=== PATIENT | female | born 1965 ===

== ENCOUNTER → 2020-08-15 14:38 | Outpatient (BNVA) | payer MEDICAID, SELFPAY | PROVIDERS: PCP Internal Medicine; Visit Provider Student in an Organized Health Care Education/Training Program | DX: Z76.89 Persons encountering health services in other specified circumstances (principal) ==

== ENCOUNTER → 2021-09-07 11:00 | Outpatient (BNVA) | payer MEDICAID, SELFPAY | PROVIDERS: PCP Internal Medicine; Visit Provider Nurse Practitioner Family | DX: M79.7 Fibromyalgia (principal) | CPT/HCPCS: 99212 ==

== ENCOUNTER → 2021-12-23 10:05 | Outpatient (BNVA) | payer MEDICAID, SELFPAY | PROVIDERS: PCP Nurse Practitioner; Referring Provider Nurse Practitioner; Visit Provider Internal Medicine | DX: R07.2 Precordial pain (principal); R94.31 Abnormal electrocardiogram [ECG] [EKG]; E11.8 Type 2 diabetes mellitus with unspecified complications; E78.5 Hyperlipidemia, unspecified; E66.01 Morbid (severe) obesity due to excess calories; Z68.38 Body mass index [BMI] 38.0-38.9, adult | CPT/HCPCS: 99202 ==

== ENCOUNTER → 2022-01-05 08:44 | Outpatient (REF) | payer MEDICAID, SELFPAY ==
--- NOTE | ~2022-01-05 | NM_ITS ---
Myocardial perfusion study Indication: Precordial chest pain to evaluate for myocardial ischemia Technique: The patient was brought in for a Lexiscan perfusion study on 01/05/2022. Patient performed low-level exercise and was injected 0.4 mg of Lexiscan intravenously. Within a minute of injection, 30 mCi of sestamibi was given intravenously. Images were obtained using the SPECT gamma camera interlaced with the gating device. Images were obtained in supine position. Resting perfusion study was performed on 01/06/2022. Patient was administered 30 mCi of sestamibi intravenously at rest. Images were then obtained in supine position. Images obtained with and without CT attenuation. Total DLP 111 mGy-cm. Images were processed with the software and compared side to side in short axis, horizontal long axis and vertical long axis views. Findings: The stress perfusion study showed non attenuated images show normal uptake of radiotracer in all segments of LV myocardium. Attenuation corrected images show mildly reduced uptake in the apex of the LV myocardium. The gated study shows normal LV systolic function with calculated LVEF of 59%. LV cavity is normal in size. The gated study shows normal systolic wall thickening and contraction of segments. Resting study shows no change in perfusion pattern compared to stress perfusion study. Gating at rest reveals normal systolic wall motion with ejection fraction at 61%. The findings are consistent with normal myocardial perfusion. NM/NM cardiolite stress test Impression: 1. Myocardial perfusion imaging study shows normal myocardial perfusion 2. Gated LVEF is 59% 3. Transient ischemic dilatation not present EKG is nondiagnostic for ischemia
--- NOTE | 2022-01-05 08:46 | CA_ITS ---
Acquisition Time: 2022-01-05 08:59:15 Total Exercise Time: 00:02:00 Test Indications: ABN EKG Medications: SEE CHART Protocol: LEXISCAN Max HR: 133 BPM 82% of Pred: 162 BPM Max BP: 126/074 mmHG Max Work Load: 1.0 METS Pharmacological stress test with Lexiscan injection, while sitting and kicking her legs, without anginal symptoms, without arrythmia, with normotensive response to injection, with nondiagnostic EKG for ischemia, with EKG showing ST/ T wave abnormality inferiorly and V3-V6 at baseline without significant changes during test. In recovery she was given Amiophylline 75mg IVP to reverse Lexiscan. Nuclear images pending. Test reviewed with Dr Banegas Referred By: Josh Banegas Overread By: NEY RAIN
== END ==
LOC: HO.CARD 08:44
PROVIDERS: Visit Provider Internal Medicine
DX: R07.2 Precordial pain (principal)
CPT/HCPCS: 78452; 93017; A9500; J0280; J2785

== ENCOUNTER 2022-01-21 13:26 | Outpatient (REF) | payer MEDICAID, SELFPAY ==
--- NOTE | ~2022-01-21 | MM_ITS ---
EXAMINATION: MM SCREENING DIGITAL BREAST TOMOSYNTHESIS, BILATERAL CLINICAL INFORMATION: Screening. Asymptomatic. The lifetime risk of breast cancer based on the Tyrer-Cuzick Model is 5.6%. COMPARISON: Mammography: June 21, 2019 and studies dating back to October 13, 2009 TECHNIQUE: Digital breast tomosynthesis is performed in both the craniocaudal and mediolateral oblique views along with computer-aided detection (CAD). Synthesized 2D images are generated from the tomosynthesis. FINDINGS: There are scattered areas of fibroglandular density (ACR BI-RADS breast composition Category b). There are no significant masses, abnormal calcifications, or other abnormalities. MM/MM tomosynthesis screening BI IMPRESSION: There are no significant changes from prior study. ASSESSMENT: BI-RADS 1: Negative RECOMMENDATION: Routine annual mammography screening. This patient's information was entered into a reminder system with a target due date for their next mammogram.
== END 2022-01-21 13:27 | disposition home or self-care (01) ==
LOC: HO.MAMMO 13:26
PROVIDERS: Visit Provider Internal Medicine Geriatric Medicine
DX: Z12.31 Encounter for screening mammogram for malignant neoplasm of breast (principal)
CPT/HCPCS: 77063; 77067

== ENCOUNTER → 2022-02-09 14:34 | Outpatient (REF) | payer MEDICAID, SELFPAY ==
--- NOTE | 2022-02-09 14:38 | CA_ITS ---
Transthoracic Echocardiogram Patient (Last, First, Middle): Jannet Quintero, Gender: Female Date of : 1965 Age: 57 Procedure Date: 02/09/2022 Procedure Type: Transthoracic Echocardiogram Location: OP Height: 160.02 cm Weight: 99.79 kg BSA: 2.01 m2 Heart Rate: 74 bpm BP: 118 / 84 mmHg Cistern Room Working Supervisor: ANTONIO Referring MD: Josh Banegas MD Diesel Mechanic Helper: Braydon Scott MD Symptoms: R07.2 - Precordial pain Study Quality: Adequate ECG Rhythm: Sinus Conclusions: - 1. Low normal LV ejection fraction 50-55% with impaired relaxation filling pattern with possible basal inferior inferoseptal wall motion abnormality 2. Normal cardiac valvular Doppler 3. No gross pericardial effusion Findings Left Ventricle Normal left ventricular cavity size. There is normal left ventricular wall thickness. The left ventricular systolic function is low normal. The visually estimated ejection fraction is between 50-55%. Spectral Doppler is indicative of an impaired relaxation filling pattern. E/E prime ratio is between 8 and 15 consistent with indeterminate filling pressures. Wall Motion Rest Echo Findings The basal inferior and basal inferoseptal segments are hypokinetic. All other scored wall segments showed normal motion. Right Ventricle Normal right ventricular cavity size and systolic function. Atria The left atrium is normal in size. Interatrial shunt cannot be excluded. The right atrium is normal in size. Aortic Valve Normal aortic valve structure and function. There is no aortic valve stenosis. There is no aortic valve regurgitation. Mitral Valve Likely normal mitral valve structure and function. There is trace mitral valve regurgitation. There is no mitral valve stenosis. Tricuspid Valve Likely normal tricuspid valve structure and function. Tricuspid regurgitation envelope is inadequate for calculation of right ventricular systolic pressure. Normal right atrial pressure. Great Vessels All visible segments of the aorta are normal in size. The pulmonary artery was not well visualized. Venous The inferior vena cava is normal in size and collapses greater than 50% with inspiration. Pericardium/Pleural There is no evidence of pericardial effusion. Prior Study Comparison no significant change compared to prior study from 2007 Measurements 2D Linear Measurements IVSd: 1.06 0.6-0.9/0.6-1.0 cm LVIDd: 4.69 3.9-5.3/4.2-5.9 cm LVIDd Index: 2.33 2.4-3.2/2.2-3.1 cm/m2 LVIDs: 3.35 2.0-3.6 cm LVPWd: 0.79 0.7-1.1 cm Ao Root: 2.80 2.1-3.5 cm LA Diam: 3.60 2.7-3.8/3.0-4.0 cm LAIDs Index: 1.79 1.5-2.3 cm/m2 LV Mass: 182.96 67-162/88-224 g LV Mass Index: 91.03 43-95/49-115 g/m2 LVOT Diam: 2.00 3.0+(-)1.3 cm 2D Systolic Function EF 4C: 49.90 >55% EF 2C: 48.80 >55% EF BiP: 50.40 >55% Mitral Valve MV Pk E: 0.65 MV PK A: 0.78 MV Decel Time: 181.00 E/A: 0.80 E'Lateral: 11.90 E'Medial: 8.05 E/E' Med: 8.00 E/E' Lat: 5.40 PHT: 53.00 MVA PHT: 4.15 Decel [place]: 3.58 Aortic Valve AoV Pk [place]: 0.94 AoV Mn [place]: 0.70 AoV VTI: 0.20 AoV Pk Grad: 3.00 Aov Mn Grad: 2.00 ROS Cont.VTI: 3.01 LVOT LVOT Pk [place]: 0.86 LVOT Mn [place]: 0.59 LVOT VTI: 0.19 LVOT Pk Grad: 3.00 LVOT Mn Grad: 2.00 LVOT Diam: 2.00 LVOT Area: 3.14 Diastolic Function MV Pk E: 0.65 MV Pk A: 0.78 E/A: 0.80 E'Medial: 8.05 E/E' Med: 8.00 E' Laterial: 11.90 E/E' Lat: 5.40 Right Ventricle TAPSE (mm): 13.00 TVS' Kw[place]: 8.00 Tricuspid Valve RA Press: 3.00 Great Vessels Aorta Ao Root-2D: 2.80 2.0-3.7 cm Sinus of Valsalva: 2.80 2.0-3.[address] [place]: 2.58 1.7-3.4 cm Ao Asc: 2.80 2.1-3.4 cm Pulmonary Veins Pulm Vein S/D 1.30 Pulmonary Valve PV Pk Kwesi: 0.91 Peak PV Grad: 3.00 Updated in Other Vendor System with Status of Final Braydon Scott MD electronically signed on 02/10/2022 1:48:08 PM with status of Final
== END ==
LOC: HO.CARD 14:34
PROVIDERS: Visit Provider Internal Medicine
DX: R07.2 Precordial pain (principal)
CPT/HCPCS: 93306

== ENCOUNTER → 2022-07-22 12:08 | Outpatient (BNVA) | payer MEDICAID, SELFPAY | PROVIDERS: PCP Nurse Practitioner; Referring Provider Nurse Practitioner; Visit Provider Internal Medicine | DX: R94.31 Abnormal electrocardiogram [ECG] [EKG] (principal); R07.2 Precordial pain | CPT/HCPCS: 93005; 99212 ==

== ENCOUNTER 2022-08-17 22:38 | Emergency (ER) | payer MEDICAID, SELFPAY ==
--- NOTE | ~2022-08-17 | XR_ITS ---
EXAMINATION: XR CHEST CLINICAL INFORMATION: Fever. Rule out pneumonia. COMPARISON: 09/03/2018 TECHNIQUE: 2 views of the chest were obtained. FINDINGS: The lungs are well expanded. There is no focal consolidation, edema, or effusion. Minimal left basilar atelectasis. No pneumothorax. The cardiomediastinal silhouette is within normal limits. No acute osseous abnormality. XR/XR chest 2V IMPRESSION: Minimal left basilar atelectasis. Otherwise clear lungs.
[2022-08-17 22:48] VITALS: BP 150/91; BP 180/120; PULSE 135; PULSE 144; RESP 16; TEMP 38.1; O2SAT 95; BMI 38.2
[2022-08-17 22:49] VITALS: BP 150/91; PULSE 138; RESP 18; TEMP 38.1; O2SAT 95
--- NOTE | 2022-08-17 22:53 | ECG_ITS ---
Test Reason : SEPSIS Blood Pressure : / mmHG Vent. Rate : 127 BPM Atrial Rate : 127 BPM P-R Int : 142 ms QRS Dur : 074 ms QT Int : 286 ms P-R-T Axes : 041 040 -39 degrees QTc Int : [address] & T wave abnormality, consider inferior ischemia ST & T wave abnormality, consider anterior ischemia Abnormal ECG When compared with ECG of 07-OCT-2018 12:58, No significant change was found Referred By: Generic ED Physician Electronically Signed By:ROGER SIMPSON MD
[2022-08-17 23:10] LABS: Hematocrit 40.5 % (37.0-47.0); Hemoglobin 13.1 g/dl (12.0-16.0); Mean Corpuscular HGB Conc 32.3 g/dl (31.0-35.0); Mean Corpuscular Hemoglobin 28.9 pg (27.0-33.0); Mean Corpuscular Volume 89.4 fL (80.0-98.0); Mean Platelet Volume 9.6 fL (9.4-12.3); Platelet Count 229 X10*3/uL (160-400); Red Blood Count 4.53 X10*6/uL (4.20-5.50); Red Cell Distribution Width 13.9 % (11.0-16.0); White Blood Count 7.6 X10*3/uL (4.8-10.8)
--- NOTE | 2022-08-17 23:19 | ED.GENADULT ---
HPI - General Adult General Chief complaint: General Medical Stated complaint: fever,chills Time Seen by Provider: 08/17/22 23:18 Source: patient Mode of arrival: EMS Limitations: no limitations History of Present Illness HPI narrative: 57-year-old female who presents emergency department for evaluation of viral-like illness. Patient states that she to get sick earlier this morning. She states she developed diffuse body aches which have been constant. She has had subjective fevers on off throughout the day. She states that she developed a cough which is productive of clear phlegm. She has had a decreased appetite but she has been able to drink fluid. She complained of chills, rhinorrhea, chest pain. She states chest pain is located in the center of her chest, the pain is a tightness which is worse coughing. She feels short of breath and has dyspnea on exertion. She had nausea with no vomiting. She states she had 3 episodes of loose diarrheal stool yesterday. She complains of frequency and dysuria. Patient states that she got influenza vaccination on Tuesday, 5 days prior. patient states she was vaccinated against COVID-19 with 3 Moderna shots. Related Data Home Medications Medication Instructions Recorded Confirmed calcium carbonate 600 mg calcium 600 mg PO DAILY 08/15/20 07/22/22 (1,500 mg) tablet cyclobenzaprine 10 mg tablet 10 mg PO BEDTIME 08/15/20 07/22/22 sumatriptan succinate 100 mg tablet See Rx Instructions PO .COMPLEX 08/15/20 07/22/22 metformin 500 mg tablet 500 mg PO BID 09/07/21 07/22/22 olanzapine 5 mg tablet 5 mg PO BEDTIME 09/07/21 07/22/22 alcohol swabs (Alcohol Prep Pads) 0 pad topical 12/23/21 07/22/22 baclofen 10 mg tablet 10 mg PO TID 12/23/21 07/22/22 blood sugar diagnostic (FreeStyle #10 ea 12/23/21 07/22/22 Lite Strips) blood-glucose meter (FreeStyle #1 ea 12/23/21 07/22/22 [place] Lite kit) buspirone 10 mg tablet 10 mg PO BID 12/23/21 07/22/22 cholecalciferol (vitamin D3) 50 50 mcg PO DAILY 12/23/21 07/22/22 mcg (2,000 unit) capsule clonazepam 1 mg tablet 1 mg PO TID PRN 12/23/21 07/22/22 ibuprofen 600 mg tablet 600 mg PO TID 12/23/21 07/22/22 lancets 33 gauge (TRUEplus Lancets) #100 ea 12/23/21 07/22/22 sertraline 100 mg tablet 200 mg PO QAM 12/23/21 07/22/22 topiramate 100 mg tablet 100 mg PO DAILY migraine 12/23/21 07/22/22 zolpidem 12.5 mg tablet,extended 12.5 mg PO BEDTIME 12/23/21 07/22/22 release,multiphase Previous Rx's Medication Instructions Recorded gabapentin 100 mg capsule 100 mg PO TID #90 caps 03/29/22 acetaminophen 500 mg tablet 1,000 mg PO Q6H PRN fever or pain 08/18/22 (Tylenol Extra Strength) #20 tabs ibuprofen 400 mg tablet 400 mg PO TID PRN fever or pain 08/18/22 #30 tabs ondansetron 4 mg disintegrating 4 mg PO Q6-8H PRN nausea and 08/18/22 tablet vomiting #14 tabs Allergies Allergy/AdvReac Type Severity Reaction Status Date / Time quetiapine [From SEROQUEL] Allergy Unknown ELEVATED Verified 07/22/22 12:43 HEART RATE, increased heart rate Review of Systems Review of Systems: Yes all other systems are reviewed and are negative [facility] Past Medical History [facility] Narrative: Social history: She denies tobacco, alcohol and drug use. Medical History Chronic pain Fibromyalgia Morbid obesity Other and unspecified hyperlipidemia Palpitation Type 2 diabetes mellitus with unspecified complications Surgical History Hx of cholecystectomy Hx of hysterectomy Family History Family History Other Family history not known due to adoption Social History Social History Household Members: Children Housing: Apartment Alcohol intake: never Patient Tobacco Use Status: Never used Tobacco Advance Directives: No Advance Directives Information Provided: No service: No Current occupational status: disabled Physical Exam ED Vital Signs: Vital Signs - 24 hr 08/17/22 22:48 08/17/22 22:49 08/17/22 23:55 Temperature 100.6 F H 100.6 F H 99.6 F Pulse Rate 135 H 138 H 120 H Respiratory Rate 16 18 18 Blood Pressure 150/91 H 150/91 H 143/95 H Pulse Oximetry 95 95 96 Oxygen Delivery Method Room Air Room Air Room Air 08/18/22 00:55 Temperature 98.6 F Pulse Rate 115 H Respiratory Rate 16 Blood Pressure 130/79 Pulse Oximetry 94 Oxygen Delivery Method Room Air BMI result Body Mass Index 38.2 Const Other: awake, alert, female patient, very pleasant cooperative, does not appear to be in distress, answers all questions appropriately [facility] Head: Yes normal to inspection, Yes normocephalic and Yes atraumatic Ears: external ears normal General nose exam: Normal external nose present Face and sinus: Yes normal facial exam Mouth: Normal oral and palatal mucosa present Throat: Yes posterior oropharynx normal Eyes General: appearance normal, both eyes and all related structures Pupils: Equal, round and reactive pupils present Neck Neck: Yes normal visual inspection, Yes no lymphadenopathy, Yes trachea midline and Yes supple Chest Chest palpation & inspection: normal inspection of the chest and normal palpation of entire chest wall Resp Effort & Inspection: normal respiratory effort and able to speak in complete sentences Auscultation: clear to auscultation bilaterally Cardio Rate: tachycardic Rhythm: regular rhythm Heart sounds: S1 normal heart sound present, S2 normal heart sound present and no murmurs GI Inspection: Yes normal to inspection Palpation (GI): Soft to palpation, nontender and no guarding Auscultation: normal bowel sounds General: Yes no CVA tenderness Back/Spine/Pelvis Back: no CVA tenderness Skin General skin exam: no rashes or lesions noted Neuro Cranial nerves: Yes CN's II-XII intact bilaterally and Yes Equal, round and reactive pupils present Cognition (Neuro): normal cognition Extrem General: Yes normal to inspection Psych Appearance: grossly normal Speech and movement: Normal speech and movement present Affect: normal affect Medications Administered Discontinued Medications Generic Name Dose Route Start Last Admin Trade Name Freq PRN Reason Stop Dose Admin Acetaminophen 975 mg 08/17/22 23:42 08/17/22 23:55 Acetaminophen 325 Mg Tablet PO 08/17/22 23:43 975 mg ONCE STA Administration Sodium Chloride 1,000 mls @ 999 mls/hr 08/17/22 23:42 08/17/22 23:56 Ns IV 08/18/22 00:42 999 mls/hr .Q1H1M STA Administration Ketorolac Tromethamine 15 mg 08/17/22 23:42 08/17/22 23:55 Ketorolac Tromethamine 15 Mg/Ml Vial IVPUSH 08/17/22 23:43 15 mg ONCE STA Administration Ondansetron HCl 4 mg 08/17/22 23:42 08/17/22 23:55 Ondansetron Hcl 4 Mg/2 Ml Vial IVPUSH 08/17/22 23:43 4 mg ONCE ONE Administration Medical Decision Making Medical Decision Making [facility] [place] Narrative: 57-year-old female who presents emergency department for evaluation of flu like illness which started earlier this morning, symptoms include subjective fever, chills, rhinorrhea, nonproductive cough, chest pain, shortness of breath, dyspnea on exertion, nausea and diarrhea. She has also had frequency and dysuria. Patient's vital signs did reveal tachycardia with a heart rate of 135, fever with a temperature of a 100.6 degrees F. O2 saturation was normal at 95% on room air. Physical examination was otherwise unremarkable. I did order laboratory evaluation includes CBC, CMP, lactic acid, blood cultures x2, urinalysis, COVID-19, influenza, RSV. Patient was ordered to get normal saline x1 L. she is also ordered to get 0056 : My independent interpretation patient's laboratory data is as follows: CBC was normal. CMP was normal except for elevated glucose of 118 and elevated chloride of 112. Lactic acid was normal at 1.2. COVID-19, influenza and RSV were negative. Chest x-ray was interpreted by me as no acute disease. 0214: patient's urinalysis was negative. Patient is feeling better. As a viral syndrome and I did discuss this with her. Patient was given prescription for Zofran for her nausea and vomiting. She was also given prescriptions for Tylenol and ibuprofen for her pain and fever. She was given printed and verbal instructions and discharged home. Differential Diagnosis Differential diagnosis includes was not limited to viral syndrome, COVID-19, RSV, influenza, pneumonia, urinary tract infection Lab Data [facility] [place] Lab Attestation statement: I reviewed the patient's lab results. 08/17/22 23:02 08/17/22 23:02 Labs: Lab Results 08/17/22 08/17/22 08/17/22 Range/Units 23:02 23:02 23:02 WBC 7.6 (4.8-10.8) X10*3/uL RBC 4.53 (4.20-5.50) X10*6/uL Hgb 13.1 (12.0-16.0) g/dl Hct 40.5 (37.0-47.0) % MCV 89.4 (80.0-98.0) fL MCH 28.9 (27.0-33.0) pg MCHC 32.3 (31.0-35.0) g/dl RDW 13.9 (11.0-16.0) % Plt Count 229 (160-400) X10*3/uL MPV 9.6 (9.4-12.3) fL Absolute Nucleated RBC 0.000 (0.0-0.012) X10*3/uL Nucleated RBC % (auto) 0.0 (0.0-0.2) /100WBC Sodium 144 (135-145) mmol/L Potassium 3.8 (3.3-5.1) mmol/L Chloride 112 H (96-108) mmol/L Carbon Dioxide 24 (22-29) mmol/L Anion Gap 12 (12-20) BUN 11 (9-16) mg/dL Creatinine 0.91 (0.5-1.4) mg/dL Estim Creat Clear Calc 74.2 Estimated GFR > 60 Random Glucose 118 H (60-115) mg/dL Lactic Acid 1.2 (0.5-2.0) mmol/L Calcium 9.7 (8.4-10.2) mg/dL Total Bilirubin 0.3 (0.0-1.0) mg/dL Direct Bilirubin 0.2 (0.0-0.5) mg/dL AST 13 (5-31) U/L ALT 14 (0-31) U/L Alkaline Phosphatase 64 (39-117) U/L Total Protein 7.5 (6.5-8.0) g/dL Albumin 4.2 (3.5-5.0) g/dL Lipase 26 (8-78) U/L Urine Color Urine Appearance Urine pH (5.0-9.0) Ur Specific Malone (1.005-1.025) Urine Protein (Neg-Trace) mg/dL Urine Glucose (UA) (Negative) mg/dL Urine Ketones (Negative) mg/dL Urine Blood (Negative) Urine Nitrite (Negative) Ur Leukocyte Esterase (Negative) Urine RBC (0-2) /HPF Urine WBC (0-5) /HPF Ur Squamous Epith Cells (0-2) /HPF Urine Bacteria (None Seen) Hyaline Casts (0-2) /LPF Influenza Type A (PCR) (Negative) Influenza Type B (PCR) (Negative) RSV RNA Qual (PCR) (Negative) SARS-CoV-2 RNA (RT-PCR) (Negative) 08/17/22 08/18/22 Range/Units 23:53 01:09 WBC (4.8-10.8) X10*3/uL RBC (4.20-5.50) X10*6/uL Hgb (12.0-16.0) g/dl Hct (37.0-47.0) % MCV (80.0-98.0) fL MCH (27.0-33.0) pg MCHC (31.0-35.0) g/dl RDW (11.0-16.0) % Plt Count (160-400) X10*3/uL MPV (9.4-12.3) fL Absolute Nucleated RBC (0.0-0.012) X10*3/uL Nucleated RBC % (auto) (0.0-0.2) /100WBC Sodium (135-145) mmol/L Potassium (3.3-5.1) mmol/L Chloride (96-108) mmol/L Carbon Dioxide (22-29) mmol/L Anion Gap (12-20) BUN (9-16) mg/dL Creatinine (0.5-1.4) mg/dL Estim Creat Clear Calc Estimated GFR Random Glucose (60-115) mg/dL Lactic Acid (0.5-2.0) mmol/L Calcium (8.4-10.2) mg/dL Total Bilirubin (0.0-1.0) mg/dL Direct Bilirubin (0.0-0.5) mg/dL AST (5-31) U/L ALT (0-31) U/L Alkaline Phosphatase (39-117) U/L Total Protein (6.5-8.0) g/dL Albumin (3.5-5.0) g/dL Lipase (8-78) U/L Urine Color Yellow Urine Appearance Clear Urine pH 8.0 (5.0-9.0) Ur Specific [place] <= 1.005 (1.005-1.025) Urine Protein Negative (Neg-Trace) mg/dL Urine Glucose (UA) Negative (Negative) mg/dL Urine Ketones Negative (Negative) mg/dL Urine Blood Negative (Negative) Urine Nitrite Negative (Negative) Ur Leukocyte Esterase Small (1+) H (Negative) Urine RBC 0-2 (0-2) /HPF Urine WBC 0-5 (0-5) /HPF Ur Squamous Epith Cells 0-2 (0-2) /HPF Urine Bacteria None Seen (None Seen) Hyaline Casts 0-2 (0-2) /LPF Influenza Type A (PCR) NEGATIVE (Negative) Influenza Type B (PCR) NEGATIVE (Negative) RSV RNA Qual (PCR) NEGATIVE (Negative) SARS-CoV-2 RNA (RT-PCR) NEGATIVE (Negative) Radiology Impression Discussion of test interpretation with radiology: I have reviewed the radiologist's reading. Radiologist Impression: XR chest 2V IMPRESSION: Minimal left basilar atelectasis. Otherwise clear lungs. ?Dictated By: Scotty Camejo MD Signed By:<Electronically signed by Scotty Camejo MD in OV>08/17/22 [id number] Discharge Plan Discharge Clinical Impression: Viral syndrome, Nausea, Acute dehydration, Fever Patient Disposition: Home, Self-Care Instructions: Viral Syndrome (ED) Additional Instructions: Your laboratory evaluation was unremarkable. Your chest x-ray was normal with no signs of pneumonia. Your COVID-19, influenza and RSV tests were negative. Your symptoms are consistent with a viral syndrome. Take ibuprofen 400 mg pills, 1 pills every 6 hours as needed for pain. Take Tylenol (acetaminophen) 500 mg pills, 2 pills every 4 to 6 hours as needed for pain. Take Zofran ODT 4 mg pills, 1 pill dissolved in your mouth every 8 hours as needed for nausea and vomiting. Follow-up with your doctor in 2 days. Please return to the emergency department if your symptoms get worse or if you develop any symptoms that are concerning to you. Prescriptions: New acetaminophen [Tylenol Extra Strength] 500 mg tablet 1,000 mg PO Q6H PRN (Reason: fever or pain) Qty: 20 0RF ibuprofen 400 mg tablet 400 mg PO TID PRN (Reason: fever or pain) Qty: 30 0RF ondansetron 4 mg tablet,disintegrating 4 mg PO Q6-8H PRN (Reason: nausea and vomiting) Qty: 14 0RF No Action gabapentin 100 mg capsule 100 mg PO TID Qty: 90 5RF cyclobenzaprine 10 mg tablet 10 mg PO BEDTIME calcium carbonate 600 mg calcium (1,500 mg) tablet 600 mg PO DAILY sumatriptan succinate 100 mg tablet See Rx Instructions PO .COMPLEX Rx Instructions: take 1 tab at onset of headache; if no relief, may repeat 1 tab after at least 2 hrs; max = 2 tabs/24 hrs PO metformin 500 mg tablet 500 mg PO BID olanzapine 5 mg tablet 5 mg PO BEDTIME ibuprofen 600 mg tablet 600 mg PO TID baclofen 10 mg tablet 10 mg PO TID buspirone 10 mg tablet 10 mg PO BID zolpidem 12.5 mg tablet,ext release multiphase 12.5 mg PO BEDTIME cholecalciferol (vitamin D3) 50 mcg (2,000 unit) capsule 50 mcg PO DAILY (DME) blood-glucose meter [FreeStyle [place] Lite] Kit See Rx Instructions .ROUTE TID Qty: 1 Rx Instructions: As directed (DME) FreeStyle Lite Strips Strip See Rx Instructions .ROUTE TID Qty: 10 Rx Instructions: As directed alcohol swabs [Alcohol Prep Pads] Pads, Medicated 0 pad topical (DME) lancets [TRUEplus Lancets] 33 gauge misc See Rx Instructions .ROUTE TID Qty: 100 Rx Instructions: As directed topiramate 100 mg tablet 100 mg PO DAILY clonazepam 1 mg tablet 1 mg PO TID PRN sertraline 100 mg tablet 200 mg PO QAM
[2022-08-17 23:23] LABS: Lactic Acid 1.2 mmol/L (0.5-2.0)
[2022-08-17 23:29] LABS: Alanine Aminotransferase 14 U/L (0-31); Albumin Level 4.2 g/dL (3.5-5.0); Alkaline Phosphatase 64 U/L (39-117); Anion Gap 12 (12-20); Aspartate Amino Transferase 13 U/L (5-31); Bilirubin Direct 0.2 mg/dL (0.0-0.5); Bilirubin Total 0.3 mg/dL (0.0-1.0); Blood Urea Nitrogen 11 mg/dL (9-16); Calcium 9.7 mg/dL (8.4-10.2); Carbon Dioxide 24 mmol/L (22-29); Chloride 112 mmol/L (96-108); Creatinine Clr Calc Pharmacy 74.2; Estimated Glomerular Filt Rate > 60; Glucose Random 118 mg/dL (60-115); Lipase 26 U/L (8-78); Potassium 3.8 mmol/L (3.3-5.1); Sodium 144 mmol/L (135-145); Total Protein 7.5 g/dL (6.5-8.0)
[2022-08-17 23:55] VITALS: BP 143/95; PULSE 120; RESP 18; TEMP 37.6; O2SAT 96
[2022-08-17] MEDS: Acetaminophen 325 MG TABLET 975 MG PO (23:55)
[2022-08-17] MEDS: ondansetron HCL 4 MG/2 ML VIAL IVPUSH (23:55)
[2022-08-17] MEDS: Ketorolac Tromethamine 15 MG/ML VIAL IVPUSH (23:55)
[2022-08-17] MEDS: 0.9 % Sodium Chloride 1,000 ML 999 ML IV (23:56)
[2022-08-18 00:35] LABS: Influenza A PCR NEGATIVE (Negative); Influenza B PCR NEGATIVE (Negative); Resp Syncy Virus RNA Qual PCR NEGATIVE (Negative); SARS COV2 PCR INHOUSE NEGATIVE (Negative)
[2022-08-18 00:55] VITALS: BP 130/79; PULSE 115; RESP 16; TEMP 37; O2SAT 94
[2022-08-18 01:21] LABS: Appearance Urine Clear; Color Urine Yellow; Glucose Urine UA Negative (Negative); Leukocyte Esterase Urine Small (1+) (Negative); Nitrite Urine Negative (Negative); Specific Gravity - Urine <= 1.005 (1.005-1.025); UMIC TRIGGER UACC YES; Urine Blood Negative (Negative); Urine Ketones Negative (Negative); Urine Protein Negative (Neg-Trace)
[2022-08-18 01:28] LABS: Bacteria Urine None Seen (None Seen); Hyaline Casts Urine 0-2 /LPF (0-2); RBC Urine 0-2 /HPF (0-2); Squamous Epithelial Cell Urine 0-2 /HPF (0-2); UACC Culture Trigger YES; WBC Urine 0-5 /HPF (0-5)
== END 2022-08-18 04:55 | disposition home or self-care (01) ==
PROVIDERS: Emergency Provider Emergency Medicine Emergency Medical Services
DX: B34.9 Viral infection, unspecified (principal); R50.9 Fever, unspecified; E86.0 Dehydration; Z20.822 Contact with and (suspected) exposure to COVID-19; Z20.828 Contact with and (suspected) exposure to other viral communicable diseases; Z79.899 Other long term (current) drug therapy
CPT/HCPCS: 0241U; 36415; 71046; 80053; 81001; 82248; 83605; 83690; 85027; 87040; 87086; 87147; 93005; 96374; 96375; 99284; J1885; J2405

== ENCOUNTER → 2022-12-24 11:28 | Outpatient (BNVA) | payer MEDICAID, SELFPAY | PROVIDERS: PCP Nurse Practitioner Primary Care; Visit Provider Nurse Practitioner Family | DX: M79.7 Fibromyalgia (principal); M25.512 Pain in left shoulder | CPT/HCPCS: 99212 ==

== ENCOUNTER 2023-08-09 15:29 | Outpatient (REF) | payer MEDICAID, SELFPAY ==
--- NOTE | ~2023-08-09 | CT_ITS ---
EXAMINATION: CT HEAD WITHOUT CONTRAST CLINICAL INFORMATION: Head trauma with persistent left-sided headache COMPARISON: None available. TECHNIQUE: Contiguous axial imaging was performed from the skull base to vertex without intravenous administration of contrast. This CT examination was performed using dose optimization techniques as appropriate, variously including the following: *Automated exposure control *Adjustment of mA and/or kV according to patient size (this includes techniques or standardized protocols for targeted exams where dose is matched to indication/reason for exam; i.e. extremities or head) *Use of iterative reconstruction technique DLP: 753 mGy-cm FINDINGS: There is no acute intra-axial, extra-axial bleed, masses or midline shift. There is no acute infarction in evolution. There is no edema. The lateral ventricles are symmetrical in size and configuration without enlargement. The hinton to white matter differentiation is maintained normal. Bone windows reveal no calvarial abnormality. There is no scalp soft tissue abnormality. Bilateral paranasal sinuses and mastoid air cells are well-aerated. CT/CT head/brain wo IV con IMPRESSION: No acute intracranial process.
== END 2023-08-09 15:30 | disposition home or self-care (01) ==
LOC: HO.CT 15:29
PROVIDERS: PCP Nurse Practitioner Primary Care; Visit Provider Internal Medicine
DX: S06.9X0A Unspecified intracranial injury without loss of consciousness, initial encounter (principal)
CPT/HCPCS: 70450

== ENCOUNTER 2023-08-15 12:20 | Emergency (ER) | payer MEDICAID, SELFPAY ==
--- NOTE | ~2023-08-15 | XR_ITS ---
Examination: Right foot, right ankle and calcaneum. CLINICAL INDICATION: Atraumatic heel pain. COMPARISON: None. TECHNIQUE: Right foot 3 views. Right ankle 2 views. Right calcaneum one view. FINDINGS: Right foot: The joint spaces are maintained normal. No acute fracture, dislocation or subluxation seen. The soft tissues are normal. Right ankle: The ankle mortise and subtalar joints are normal. There is a small avulsion fragment tip of medial malleolus likely from old injury. There is a small calcaneal heel and retrocalcaneal enthesophytes. The soft tissues are normal. No acute fracture or dislocation seen. Right heel: There is a small calcaneal heel enthesophyte. No bony erosive changes, acute fracture or dislocation seen. The soft tissues are grossly unremarkable.. XR/XR ankle RT min 3V IMPRESSION: Small calcaneal heel and retrocalcaneal enthesophytes. No visible fracture, dislocation or subluxation of the right ankle or right foot.
--- NOTE | ~2023-08-15 | XR_ITS ---
Examination: Right foot, right ankle and calcaneum. CLINICAL INDICATION: Atraumatic heel pain. COMPARISON: None. TECHNIQUE: Right foot 3 views. Right ankle 2 views. Right calcaneum one view. FINDINGS: Right foot: The joint spaces are maintained normal. No acute fracture, dislocation or subluxation seen. The soft tissues are normal. Right ankle: The ankle mortise and subtalar joints are normal. There is a small avulsion fragment tip of medial malleolus likely from old injury. There is a small calcaneal heel and retrocalcaneal enthesophytes. The soft tissues are normal. No acute fracture or dislocation seen. Right heel: There is a small calcaneal heel enthesophyte. No bony erosive changes, acute fracture or dislocation seen. The soft tissues are grossly unremarkable.. XR/XR foot RT 2V IMPRESSION: Small calcaneal heel and retrocalcaneal enthesophytes. No visible fracture, dislocation or subluxation of the right ankle or right foot.
--- NOTE | ~2023-08-15 | XR_ITS ---
Examination: Right foot, right ankle and calcaneum. CLINICAL INDICATION: Atraumatic heel pain. COMPARISON: None. TECHNIQUE: Right foot 3 views. Right ankle 2 views. Right calcaneum one view. FINDINGS: Right foot: The joint spaces are maintained normal. No acute fracture, dislocation or subluxation seen. The soft tissues are normal. Right ankle: The ankle mortise and subtalar joints are normal. There is a small avulsion fragment tip of medial malleolus likely from old injury. There is a small calcaneal heel and retrocalcaneal enthesophytes. The soft tissues are normal. No acute fracture or dislocation seen. Right heel: There is a small calcaneal heel enthesophyte. No bony erosive changes, acute fracture or dislocation seen. The soft tissues are grossly unremarkable.. XR/XR calcaneus RT min 2V IMPRESSION: Small calcaneal heel and retrocalcaneal enthesophytes. No visible fracture, dislocation or subluxation of the right ankle or right foot.
[2023-08-15 12:35] VITALS: BP 168/77; PULSE 80; RESP 18; TEMP 36; O2SAT 97; BMI 39.3
--- NOTE | 2023-08-15 12:36 | ED_ITS ---
HPI - General Adult General Chief complaint: Extremity Injury, Lower Stated complaint: r heel pain Time Seen by Provider: 08/15/23 13:06 Source: patient Mode of arrival: ambulatory Limitations: no limitations History of Present Illness HPI narrative: Patient is a 58 year old assigned female at with a history of DM presenting to the emergency department today with right heel pain. Patient states that starting a few days ago she began to have right heel pain. Patient states that it is worse when walks. Patient denies any dizziness, lightheadedness, abdominal pain, nausea, vomiting, fever, chills, blurry vision, double vision, loss of vision, chest pain, difficulty breathing, shortness of breath, back pain, night sweats, pain with urination, increased urinary frequency, increased urinary urgency, blood in her urine or stool, syncope or a near syncopal episode, recent trauma or falls, bowel incontinence, bladder incontinence, bowel retention, bladder retention, or any other complaints at this time. Onset (ago): day(s) Location: right and lower extremity Severity: mild Severity scale (1-10): 4 Quality: aching and dull Pain Consistency: intermittent Relieving factors: none Exacerbating factors: movement Associated symptoms: denies other symptoms Treatments prior to arrival: none Related Data Home Medications Medication Instructions Recorded Confirmed calcium carbonate 600 mg calcium 600 mg PO DAILY 08/15/20 12/24/22 (1,500 mg) tablet metformin 500 mg tablet 500 mg PO BID 09/07/21 12/24/22 olanzapine 5 mg tablet 5 mg PO BEDTIME 09/07/21 12/24/22 alcohol swabs (Alcohol Prep Pads) 0 pad topical 12/23/21 12/24/22 blood sugar diagnostic (FreeStyle #10 ea 12/23/21 12/24/22 Lite Strips) blood-glucose meter (FreeStyle #1 ea 12/23/21 12/24/22 [place] Lite kit) buspirone 10 mg tablet 10 mg PO BID 12/23/21 12/24/22 cholecalciferol (vitamin D3) 50 50 mcg PO DAILY 12/23/21 12/24/22 mcg (2,000 unit) capsule clonazepam 1 mg tablet 1 mg PO TID PRN 12/23/21 12/24/22 lancets 33 gauge (TRUEplus Lancets) #100 ea 12/23/21 12/24/22 topiramate 100 mg tablet 100 mg PO DAILY migraine 12/23/21 12/24/22 zolpidem 12.5 mg tablet,extended 12.5 mg PO BEDTIME 12/23/21 12/24/22 release,multiphase Previous Rx's Medication Instructions Recorded acetaminophen 500 mg tablet 1,000 mg (2 x 500 mg) PO Q6H PRN 08/18/22 (Tylenol Extra Strength) fever or pain #20 tabs ibuprofen 400 mg tablet 400 mg PO TID PRN fever or pain 08/18/22 #30 tabs naproxen 500 mg tablet 500 mg PO BID #60 tabs 12/24/22 gabapentin 100 mg capsule 100 mg PO TID #90 caps 02/08/23 Allergies Allergy/AdvReac Type Severity Reaction Status Date / Time quetiapine [From SEROQUEL] Allergy Unknown ELEVATED Verified 08/15/23 12:35 HEART RATE, increased heart rate Review of Systems Constitutional: Constitutional: Reports no additional constitutional complaints, Denies chills, Denies fever(s) and Denies night sweats Eyes: Eyes: Reports no additional eye complaints, Denies blurry vision, Denies change in vision, Denies diplopia, Denies eye discharge, Denies loss of vision and Denies eye pain ENT: Denies dizziness Cardiovascular: Cardiovascular: Reports no additional cardiovascular complaints, Denies chest pain, Denies lightheadedness, Denies Loss of Consciousness and Denies dyspnea Respiratory: Respiratory: Reports no additional respiratory complaints and Denies dyspnea Gastrointestinal: Gastrointestinal: Reports no additional gastrointestinal complaints, Denies abdominal pain, Denies melena, Denies hematochezia, Denies change in bowel habits and Denies change in stool character Genitourinary: Genitourinary: Denies hematuria, Denies urinary frequency, Denies dysuria, Denies urinary incontinence, Denies urinary hesitancy and Denies urinary urgency Musculoskeletal: Musculoskeletal: Reports no additional musculoskeletal complaints, Denies numbness and Denies tingling Comments: right heel pain Neurologic: Denies dizziness, Denies loss of vision, Denies numbness and Denies tingling Psychiatric: Psychiatric: Reports no additional psychiatric complaints Endocrine: Endocrine: Reports no additional endocrine complaints Hematologic/Lymphatic: Hematologic/Lymphatic: Reports no additional hematologic/lymphatic complaints Allergic/Immunologic: Allergic/Immunologic: Reports no additional allergic/immunologic complaints PMFSH Past Medical History Attestation statement: The following information was validated with the patient. Source: old records reviewed and nursing notes reviewed Onset Date is defined in the Problem List Problems that require an onset date and time if occurred within 24 hrs of arrival to the ED Aortic Dissection and Rupture; Neurologic impairment; Cardiopulmonary Arrest; Endotracheal Intubation; Insertion or Replacement of Mechanical Circulatory Assist Device Medical History Morbid obesity Other and unspecified hyperlipidemia Abnormal EKG Precordial chest pain Type 2 diabetes mellitus with unspecified complications Chronic pain Palpitation Fibromyalgia Surgical History Hx of hysterectomy Hx of cholecystectomy Family History Family History Other Family history not known due to adoption Social History Social History Household Members: Children Housing: Apartment Alcohol intake: never Patient Tobacco Use Status: Never used Tobacco Advance Directives: No Advance Directives Information Provided: No service: No Current occupational status: disabled Physical Exam ED Vital Signs: Vital Signs - 24 hr 08/15/23 12:35 Temperature 96.8 F Pulse Rate 80 Respiratory Rate 18 Blood Pressure 168/77 H Pulse Oximetry 97 Oxygen Delivery Method Room Air BMI result Body Mass Index 39.3 Const General: cooperative, no acute distress, alert and awake Nutritional Appearance: well nourished Orientation/consciousness: patient oriented x3 Limitations: no limitations [facility] Head: Yes normal to inspection and Yes atraumatic Ears: hearing grossly normal bilaterally and external ears normal General nose exam: Normal external nose present, no nasal discharge noted and no epistaxis Face and sinus: Yes normal facial exam, No abrasion and No laceration Mouth: Normal oral and palatal mucosa present, no drooling and no muffled voice Eyes General: appearance normal, both eyes and all related structures Periorbital: periorbital findings normal Eyelids: Yes eyelids normal Conjunctivae: conjunctivae normal Pupils: Equal, round and reactive pupils present EOM: EOMs intact bilaterally Neck Neck: Yes normal visual inspection, Yes full ROM and Yes no lymphadenopathy Chest Chest palpation & inspection: normal inspection of the chest Resp Effort & Inspection: normal respiratory effort and able to speak in complete sentences GI Inspection: Yes normal to inspection Neuro General: patient oriented x3 and moves all extremities Cranial nerves: Yes Equal, round and reactive pupils present Cognition (Neuro): normal cognition Motor exam (neuro): 5/5 motor strength present throughout Sensory Exam: Normal double simultaneous stimulation for sensation Coordination: [id number] test normal Extrem General: Yes normal to inspection, Yes full ROM and Yes capillary refill normal Psych Appearance: grossly normal Mental Status: mental status grossly normal Affect: normal affect Attitude: cooperative Thought process: Normal thought process present Thought content: Normal thought content present Insight: Good insight present (Psych) Course Course Course Narrative: RME:?58 yo female w/ hx of T2DM, HDL, and fibromyalgia here w/ atraumatic right heel pain x2 days. Pain is constant. worse with bearing palma. no injury/trauma. taking Tylenol and ibuprofen at home w/o relief. ambulating with steady gait. ttp of right lateral and medial calcaneous. no open wounds/ overlying skin changes. +2+dp/pt pulses. plan for xrays Full HPI, ROS and PE to be performed by the primary ED provider. Medications Administered Discontinued Medications Generic Name Dose Route Start Last Admin Trade Name Freq PRN Reason Stop Dose Admin Ketorolac Tromethamine 15 mg 08/15/23 13:52 08/15/23 13:57 Ketorolac Tromethamine 15 Mg/Ml Vial IM 08/15/23 13:53 15 mg ONCE ONE Administration Medical Decision Making Medical Decision Making [facility] Narrative: Patient is a 58 year old assigned female at with a history of DM presenting to the emergency department today with right heel pain. Patient's physical exam was unremarkable. Patient's right foot, calcaneus, and ankle x- rays showed no acute process. I explained my physical exam findings as well as all test results to the patient. I answered all questions asked by the patient. I stressed the importance of the patient taking her medication as prescribed. I stressed the importance of the patient following up with her primary care provider and an orthopedic provider. I stressed the importance of the patient returning to the emergency department immediately if her symptoms were to worsen or if she were to develop any dizziness, shortness of breath, difficulty breathing, chest pain, blurry vision, loss of vision, nausea, vomiting, abdominal pain, fever, chills, back pain, or any other complaints. Patient verbalized agreement and understanding with this treatment plan and discharge. Differential Diagnosis Differential Diagnoses: The differential diagnosis associated with the presentation includes Plantar fasciitis Admission/Observation Consideration of admission/observation: Escalation of care including admission/observation considered Patient would have been admitted to the hospital had her work up had any findings where hospital admission was appropriate and her clinical presentation warranted hospital admission. Independent Interpretation I performed an independent interpretation of an: Plain X-Ray Interpretation: My interpretation is in agreement with the radiologist's impression of these imaging studies. CLINICAL INDICATION: Atraumatic heel pain. COMPARISON: None. TECHNIQUE: Right foot 3 views. Right ankle 2 views. Right calcaneum one view. FINDINGS: Right foot: The joint spaces are maintained normal. No acute fracture, dislocation or subluxation seen. The soft tissues are normal. Right ankle: The ankle mortise and subtalar joints are normal. There is a small avulsion fragment tip of medial malleolus likely from old injury. There is a small calcaneal heel and retrocalcaneal enthesophytes. The soft tissues are normal. No acute fracture or dislocation seen. Right heel: There is a small calcaneal heel enthesophyte. No bony erosive changes, acute fracture or dislocation seen. The soft tissues are grossly unremarkable.. XR/XR foot RT 2V IMPRESSION: Small calcaneal heel and retrocalcaneal enthesophytes. No visible fracture, dislocation or subluxation of the right ankle or right foot Dictated By: Mina Youssef MD Signed By: Electronically signed by Mina Youssef MD 08/15/23 7731 Radiology Impression Discussion of test interpretation with radiology: I have reviewed the radiologist's reading. Discharge Plan Discharge Clinical Impression: Plantar fasciitis Patient Disposition: Home, Self-Care Instructions: Plantar Fasciitis (ED) Additional Instructions: Follow up with your primary care provider and an orthopedic provider. Return to the emergency department immediately if your symptoms worsen or if you develop any dizziness, shortness of breath, difficulty breathing, chest pain, blurry vision, loss of vision, nausea, vomiting, abdominal pain, fever, chills, back pain, or any other complaints. Dev un seguimiento con flores proveedor de atenci?n primaria y un proveedor ortop?dico. Regrese al departamento de emergencias inmediatamente si soo s?ntomas empeoran o si presenta mareos, dificultad para respirar, dificultad para respirar, dolor en el pecho, visi?n borrosa, p?rdida de la visi?n, n?useas, v?mitos, dolor abdominal, fiebre, escalofr?os, dolor de espalda o cualquier otras quejas. Prescriptions: No Action gabapentin 100 mg capsule 100 mg PO TID Qty: 90 5RF acetaminophen [Tylenol Extra Strength] 500 mg tablet 1,000 mg PO Q6H PRN (Reason: fever or pain) Qty: 20 0RF ibuprofen 400 mg tablet 400 mg PO TID PRN (Reason: fever or pain) Qty: 30 0RF calcium carbonate 600 mg calcium (1,500 mg) tablet 600 mg PO DAILY metformin 500 mg tablet 500 mg PO BID olanzapine 5 mg tablet 5 mg PO BEDTIME buspirone 10 mg tablet 10 mg PO BID zolpidem 12.5 mg tablet,ext release multiphase 12.5 mg PO BEDTIME cholecalciferol (vitamin D3) 50 mcg (2,000 unit) capsule 50 mcg PO DAILY (DME) blood-glucose meter [FreeStyle Shirley Lite] Kit See Rx Instructions .ROUTE TID Qty: 1 Rx Instructions: As directed (DME) FreeStyle Lite Strips Strip See Rx Instructions .ROUTE TID Qty: 10 Rx Instructions: As directed alcohol swabs [Alcohol Prep Pads] Pads, Medicated 0 pad topical (DME) lancets [TRUEplus Lancets] 33 gauge misc See Rx Instructions .ROUTE TID Qty: 100 Rx Instructions: As directed topiramate 100 mg tablet 100 mg PO DAILY clonazepam 1 mg tablet 1 mg PO TID PRN naproxen 500 mg tablet 500 mg PO BID Qty: 60 0RF Referrals: [facility] [Provider Group] (Call to establish and follow up with an orthopedic provider. Llame para establecer y realizar un seguimiento con un proveedor ortop?dico.) Katharine Vega CUSTOMER SERVICE ASSISTANT [Primary Care Provider] - Interventions: ED Discharge Assessment Last Done: 08/15/23 14:00 Discharge Date/Time: 08/15/23 14:00 Print Language: Czech
[2023-08-15] MEDS: Ketorolac Tromethamine 15 MG/ML VIAL IM (13:57)
== END 2023-08-15 14:00 | disposition home or self-care (01) ==
PROVIDERS: Emergency Provider Emergency Medicine; PCP Nurse Practitioner Primary Care
DX: M72.2 Plantar fascial fibromatosis (principal); M25.571 Pain in right ankle and joints of right foot
CPT/HCPCS: 73610; 73620; 73650; 96372; 99283; 99284; J1885

== ENCOUNTER 2023-08-25 13:45 | Outpatient (AMB) | payer MEDICAID, SELFPAY ==
[2023-08-25 13:54] VITALS: BP 112/70; PULSE 61; TEMP 36.1; O2SAT 96; BMI 39.5
--- NOTE | 2023-08-25 13:54 | MHC.OFFVIS ---
Intake Vital Signs 08/25/23 13:54 Height 5 ft 3 in Weight 222 lb 14.197 oz BMI 39.5 BP 112/70 Blood Pressure Location Rt brachial Position Sitting Pulse 61 Pulse Source Pulse Oximeter Temp 97.0 F Temp Source Skin Pulse Oximetry (%) 96 Oxygen Delivery Method Room Air Intake Visit Reasons: fibromyalgia Intake Note: Patient last seen by Andreea Newsome on 12/24/22 presents today for follow up. Shoulder x-ray ordered at last visit still pending. C/o bad pain in right heel for more than a week barely can walk on it. The pain keeps her up at night. [employer] Ste[employer] Required: No Accompanied by: Self / Same As Patient Allergies quetiapine [From SEROQUEL] Allergy (Unknown, Verified 08/25/23 13:57) ELEVATED HEART RATE, increased heart rate Medication List - Last Reconciled 08/25/23 by Stephanie Wells MD acetaminophen (Tylenol Extra Strength) 1,000 mg (2 x 500 mg) PO Q6H PRN alcohol swabs (Alcohol Prep Pads) 0 pad topical blood sugar diagnostic (FreeStyle Lite Strips) As directed blood-glucose meter (FreeStyle [place] Lite kit) As directed buspirone 15 mg PO BID calcium carbonate 600 mg PO DAILY cholecalciferol (vitamin D3) 50 mcg PO DAILY clonazepam 1 mg PO TID PRN gabapentin 100 mg PO TID ibuprofen 400 mg PO TID PRN lancets (TRUEplus Lancets) As directed metformin 500 mg PO BID naproxen 500 mg PO BID olanzapine 5 mg PO BEDTIME omeprazole 20 mg PO DAILY sertraline 200 mg PO QAM sumatriptan succinate 50 mg PO Q6H PRN topiramate 100 mg PO DAILY zolpidem ER 12.5 mg PO BEDTIME HPI HPI Comments History of Present Illness Details 58-year-old female with fibromyalgia returns for follow-up. She states that about a week ago she went to urgent care due to acute onset of right heel pain. An x-ray was done which showed no fracture. She states that she does not recall any injury or overuse. She denies any similar episodes in the past. She can not think of any aggravating or relieving factors. She does not take anything for pain currently. [facility] Medical History Morbid obesity Other and unspecified hyperlipidemia Abnormal EKG Precordial chest pain Type 2 diabetes mellitus with unspecified complications Chronic pain Palpitation Fibromyalgia Surgical History Hx of hysterectomy Hx of cholecystectomy Family History Other Family history not known due to adoption Social History Household Members: Children Housing: Apartment Alcohol intake: never Patient Tobacco Use Status: Never used Tobacco service: No Current occupational status: disabled Review of Systems Musc Reports arthralgias and Reports stiffness Physical Exam Vital Signs: Last Vital Signs Temp 97.0 F 08/25/23 13:54 Pulse 61 08/25/23 13:54 BP 112/70 08/25/23 13:54 Pulse Ox 96 08/25/23 13:54 Oxygen Delivery Method Room Air 08/25/23 13:54 BMI result Body Mass Index 39.5 Const General: cooperative, healthy appearing and anxious Nutritional Appearance: obese morbidly obese Orientation/consciousness: patient oriented x3 Limitations: no limitations HEENT Head: Yes normocephalic and Yes atraumatic Mouth: moist mucous membranes Resp Effort & Inspection: normal respiratory effort and able to speak in complete sentences Auscultation: clear to auscultation bilaterally Cardio Rate: regular rate Neuro General: patient oriented x3 Extrem Other: No active synovitis No swollen joints noted Tenderness squeezing her right foot posteriorly. No MTP tenderness Antalgic gait in exam room but patient seen walking normally outside of the exam room Assessment & Plan Assessment & Plan (1) Plantar fasciitis of right foot: Code(s): M72.2 - Plantar fascial fibromatosis Plan: Symptoms rather consistent with plantar fasciitis. Recent x-ray did not show a fracture. No significant enthesopathy. No swelling on exam. Will prescribe a 2 week course of naproxen. I provided patient a printout of home exercises for plantar fasciitis. Follow-up with PCP. Can consider podiatry evaluation if no improvement Plan I spent 20 minutes reviewing patient's chart, evaluating patient, counseling patient and documenting in the chart Medications: Refilled naproxen 500 mg PO BID 30 tabs 1RF M25.50 - Pain in unspecified joint Coding Level of Care Code Est Pt Level 3 (76027) Diagnoses Plantar fasciitis of right foot M72.2
== END 2023-08-25 15:02 | disposition home or self-care (01) ==
LOC: HO.RHE 13:45
PROVIDERS: PCP Nurse Practitioner Primary Care; Visit Provider Student in an Organized Health Care Education/Training Program
DX: M72.2 Plantar fascial fibromatosis (principal)
CPT/HCPCS: 99213

== ENCOUNTER → 2023-08-25 13:45 | Outpatient (BNVA) | payer MEDICAID, SELFPAY | PROVIDERS: PCP Nurse Practitioner Primary Care; Visit Provider Student in an Organized Health Care Education/Training Program | DX: M72.2 Plantar fascial fibromatosis (principal) | CPT/HCPCS: 99212 ==

== ENCOUNTER 2023-09-07 14:47 | Emergency (ER) | payer MEDICAID, SELFPAY ==
--- NOTE | ~2023-09-07 | XR_ITS ---
EXAMINATION: XR CHEST CLINICAL INFORMATION: Chest pain. Shortness of breath. COMPARISON: Chest x-ray January 15, 2023 TECHNIQUE: 2 views of the chest were obtained. FINDINGS: No significant abnormality is noted involving the heart, lungs, mediastinum, bony thorax or soft tissues. Surgical clips right upper quadrant of abdomen. XR/XR chest 2V IMPRESSION: Unremarkable examination.
--- NOTE | 2023-09-07 14:50 | ECG_ITS ---
Test Reason : cp Blood Pressure : / mmHG Vent. Rate : 100 BPM Atrial Rate : 100 BPM P-R Int : 126 ms QRS Dur : 078 ms QT Int : 362 ms P-R-T Axes : 038 035 -30 degrees QTc Int : 466 ms Normal sinus rhythm ST & T wave abnormality, consider inferior ischemia ST & T wave abnormality, consider anterolateral ischemia Abnormal ECG When compared with ECG of 17-AUG-2022 22:57, No significant change was found Referred By: Anabel Bruce Electronically Signed By:EB VALDEZ
[2023-09-07 15:22] VITALS: BP 156/82; PULSE 86; RESP 18; TEMP 36.2; O2SAT 97; BMI 39.3
--- NOTE | 2023-09-07 15:22 | ED.CHESTPAIN ---
HPI - Chest Pain General Chief Complaint: Chest Pain Stated Complaint: Chest pain Time Seen by Provider: 09/07/23 20:57 History of Present Illness HPI narrative: The patient is a very pleasant 58-year-old with type 2 diabetes on metformin who started to experience chest pain yesterday in the middle of the day. She describes having brief episodes of chest pain with some frequency. She says the episodes last only a few seconds and come every 10-15 minutes. She also feels mildly short of breath. She says she has been under a lot of stress recently and wonders whether her symptoms could be anxiety or stress related. She says that her mother several months ago. Also her niece a couple of months ago. Additionally her son was recently put in chcf. She lives with her with whom she gets along well. She also lives with a daughter with whom she has a good relationship. No fever, sweats, chills. No cough or sputum. No abdominal pain, nausea, vomiting. No pain or swelling in her legs. Related Data Home Medications Medication Instructions Recorded Confirmed calcium carbonate 600 mg calcium 600 mg PO DAILY 08/15/20 12/24/22 (1,500 mg) tablet metformin 500 mg tablet 500 mg PO BID 09/07/21 12/24/22 olanzapine 5 mg tablet 5 mg PO BEDTIME 09/07/21 12/24/22 alcohol swabs (Alcohol Prep Pads) 0 pad topical 12/23/21 12/24/22 blood sugar diagnostic (FreeStyle #10 ea 12/23/21 12/24/22 Lite Strips) blood-glucose meter (FreeStyle #1 ea 12/23/21 12/24/22 [place] Lite kit) cholecalciferol (vitamin D3) 50 50 mcg PO DAILY 12/23/21 12/24/22 mcg (2,000 unit) capsule clonazepam 1 mg tablet 1 mg PO TID PRN 12/23/21 12/24/22 lancets 33 gauge (TRUEplus Lancets) #100 ea 12/23/21 12/24/22 topiramate 100 mg tablet 100 mg PO DAILY migraine 12/23/21 12/24/22 zolpidem 12.5 mg tablet,extended 12.5 mg PO BEDTIME 12/23/21 12/24/22 release,multiphase buspirone 15 mg tablet 15 mg PO BID 08/25/23 omeprazole 20 mg capsule,delayed 20 mg PO DAILY 08/25/23 release sertraline 100 mg tablet 200 mg PO QAM 08/25/23 sumatriptan succinate 50 mg tablet 50 mg PO Q6H PRN migraine 08/25/23 Previous Rx's Medication Instructions Recorded acetaminophen 500 mg tablet 1,000 mg (2 x 500 mg) PO Q6H PRN 08/18/22 (Tylenol Extra Strength) fever or pain #20 tabs ibuprofen 400 mg tablet 400 mg PO TID PRN fever or pain 08/18/22 #30 tabs gabapentin 100 mg capsule 100 mg PO TID #90 caps 02/08/23 naproxen 500 mg tablet 500 mg PO BID #30 tabs 08/25/23 Allergies Allergy/AdvReac Type Severity Reaction Status Date / Time quetiapine [From SEROQUEL] Allergy Unknown ELEVATED Verified 08/25/23 13:57 HEART RATE, increased heart rate oxycodone [From OxyContin] Allergy Gastrointestinal Verified 09/07/23 15:22 Upset Review of Systems Review of Systems: Yes all other systems are reviewed and are negative [facility] Past Medical History Medical History Morbid obesity Other and unspecified hyperlipidemia Abnormal EKG Precordial chest pain Type 2 diabetes mellitus with unspecified complications Chronic pain Palpitation Fibromyalgia Surgical History Hx of hysterectomy Hx of cholecystectomy Family History Family History Other Family history not known due to adoption Social History Social History Household Members: Children Housing: Apartment Alcohol intake: never Patient Tobacco Use Status: Never used Tobacco Advance Directives: No Advance Directives Information Provided: No service: No Current occupational status: disabled Physical Exam Vital Signs: Vital Signs: Last Vital Signs Temp 98.4 F 09/07/23 21:13 Pulse 70 09/07/23 21:13 Resp 12 09/07/23 21:13 BP 153/90 H 09/07/23 21:13 Pulse Ox 98 09/07/23 21:13 O2 Del Method Room Air 09/07/23 21:13 BMI result Body Mass Index 39.3 Const: Other: The patient is a mildly overweight 58-year-old who was awake and alert and does not look in distress. HEENT: Other: The face is symmetrical. ?Mucous membranes moist. Eyes: Other: Pupils are round equal, conjunctivae are clear, extraocular movements intact Neck: Neck: Yes no JVD Resp: Effort & Inspection: normal respiratory effort Auscultation: clear to auscultation bilaterally Cardio: Rate: regular rate Rhythm: regular rhythm Heart sounds: S1 normal heart sound present and S2 normal heart sound present GI: Other: Abdomen is soft and nontender Skin: Other: Skin is dry and unremarkable Neuro: Other: The patient is awake, alert, pleasant, cooperative. Mental status is normal. Cranial nerves are intact. She moves her extremities normally and appropriately. Grossly neurologically intact. Extrem: Other: No pitting edema in the lower legs. No calf swelling or tenderness. No calf asymmetry. Course Course Course Narrative: RME:?58 yo female. hx depression and anxiety, T1DM, here with intermittent chest pain and SOB x1 day that came on suddenly while watching tv. episodes last a few seconds. pain located to left chest and epigastric region. Denies cough. lungs cta b/l. RRR. no calf tenderness Full HPI, ROS and PE to be performed by the primary ED provider. Medical Decision Making Medical Decision Making MDM Narrative: The patient is a 58-year-old with a history of type 2 diabetes who presents with very nonspecific chest pain symptoms. She has an abnormal EKG but she seems to have a baseline abnormal EKG. Clinically the patient looks well and my overall suspicion for an acute coronary syndrome or other acutely dangerous process is low. Her troponins are negative. ProBNP is normal. Chest x-ray is normal. Other labs are unremarkable. I think she may be discharged to follow up with her regular doctor. Lab Data 09/07/23 17:19 09/07/23 17:19 Labs: Lab Results 09/07/23 09/07/23 Range/Units 17:19 21:14 WBC 8.7 (4.8-10.8) X10*3/uL RBC 4.57 (4.20-5.50) X10*6/uL Hgb 13.6 (12.0-16.0) g/dl Hct 42.2 (37.0-47.0) % MCV 92.3 (80.0-98.0) fL MCH 29.8 (27.0-33.0) pg MCHC 32.2 (31.0-35.0) g/dl RDW 14.3 (11.0-16.0) % Plt Count 204 (160-400) X10*3/uL MPV 9.7 (9.4-12.3) fL Immature Gran % (Auto) 0.1 (0.0-0.4) % Neut % (Auto) 65.3 (45-73) % Lymph % (Auto) 23.8 (20-40) % [place] % (Auto) 9.2 (2-11) % Eos % (Auto) 1.0 (0-4) % Baso % (Auto) 0.6 (0-2) % Lymph # (Auto) 2.1 (1.2-4.9) X10*3/uL [place] # (Auto) 0.8 (0.1-1.2) X10*3/uL Eos # (Auto) 0.1 (0.0-0.4) X10*3/uL Baso # (Auto) 0.1 (0.0-0.2) X10*3/uL Abs Immat Gran (auto) 0.01 (0.00-0.03) X10*3/uL Absolute Neuts (auto) 5.7 (2.0-8.3) x10*3/uL Absolute Nucleated RBC 0.000 (0.0-0.012) X10*3/uL Nucleated RBC % (auto) 0.0 (0.0-0.2) /100WBC PT 11.7 (11.1-13.3) SEC INR 1.0 (0.9-1.1) Sodium 143 (135-145) mmol/L Potassium 4.1 (3.3-5.1) mmol/L Chloride 110 H (96-108) mmol/L Carbon Dioxide 26 (22-29) mmol/L Anion Gap 11 L (12-20) BUN 10 (9-16) mg/dL Creatinine 0.80 (0.5-1.4) mg/dL Estim Creat Clear Calc 84.7 Estimated GFR > 60 Random Glucose 109 (60-115) mg/dL Calcium 8.9 D (8.4-10.2) mg/dL Magnesium 2.1 (1.6-2.6) mg/dL Total Bilirubin 0.4 (0.0-1.0) mg/dL AST 18 (5-31) U/L ALT 25 (0-31) U/L Alkaline Phosphatase 67 (39-117) U/L Troponin I High Sens < 2.7 < 2.7 (<3.5-17.0) ng/L B-Natriuretic Peptide 15 (<100) pg/mL Total Protein 7.4 (6.5-8.0) g/dL Albumin 3.9 (3.5-5.0) g/dL Lipase 22 (8-78) U/L Specimen Comment DELAY Independent Interpretation I performed an independent interpretation of an: EKG Interpretation: EKG at 14:56 shows normal sinus rhythm at 100 beats per minute. There are ST and T-wave changes in multiple leads. The overall appearance of the ST and T-wave changes similar to the patient's previous EKGs. Discharge Plan Discharge Clinical Impression: Chest pain Patient Disposition: Home, Self-Care Additional Instructions: Your testing today is not showing any sign of a heart problem or any other concerning dangerous process. It is possible your symptoms could be related to all the stress you have been under recently. Please continue your regular medications. Please plan on following up with your regular doctor soon to discuss these symptoms further. Return to the emergency department if significantly worse at any time. Prescriptions: No Action gabapentin 100 mg capsule 100 mg PO TID Qty: 90 5RF acetaminophen [Tylenol Extra Strength] 500 mg tablet 1,000 mg PO Q6H PRN (Reason: fever or pain) Qty: 20 0RF ibuprofen 400 mg tablet 400 mg PO TID PRN (Reason: fever or pain) Qty: 30 0RF calcium carbonate 600 mg calcium (1,500 mg) tablet 600 mg PO DAILY metformin 500 mg tablet 500 mg PO BID olanzapine 5 mg tablet 5 mg PO BEDTIME zolpidem 12.5 mg tablet,ext release multiphase 12.5 mg PO BEDTIME cholecalciferol (vitamin D3) 50 mcg (2,000 unit) capsule 50 mcg PO DAILY (DME) blood-glucose meter [[employer]StUT[employer] [place] Lite] Kit See Rx Instructions .ROUTE TID Qty: 1 Rx Instructions: As directed (DME) FreeStyle Lite Strips Strip See Rx Instructions .ROUTE TID Qty: 10 Rx Instructions: As directed alcohol swabs [Alcohol Prep Pads] Pads, Medicated 0 pad topical (DME) lancets [TRUEplus Lancets] 33 gauge misc See Rx Instructions .ROUTE TID Qty: 100 Rx Instructions: As directed topiramate 100 mg tablet 100 mg PO DAILY clonazepam 1 mg tablet 1 mg PO TID PRN sumatriptan succinate 50 mg tablet 50 mg PO Q6H PRN (Reason: migraine) sertraline 100 mg tablet 200 mg PO QAM omeprazole 20 mg capsule,delayed release(DR/EC) 20 mg PO DAILY buspirone 15 mg tablet 15 mg PO BID naproxen 500 mg tablet 500 mg PO BID Qty: 30 1RF Referrals: Name,MD Eulalio [Physician] - (Chest pain)
[2023-09-07 17:25] LABS: MANUAL DIFF FLAG NO
[2023-09-07 17:27] LABS: Basophils Absolute Auto 0.1 X10*3/uL (0.0-0.2); Basophils Percent Auto 0.6 % (0-2); Eosinophils Absolute Auto 0.1 X10*3/uL (0.0-0.4); Hematocrit 42.2 % (37.0-47.0); Hemoglobin 13.6 g/dl (12.0-16.0); Imm Gran Abs Auto 0.01 X10*3/uL (0.00-0.03); Imm Gran Pct Auto 0.1 % (0.0-0.4); Lymphocytes Absolute Auto 2.1 X10*3/uL (1.2-4.9); Lymphocytes Percent Auto 23.8 % (20-40); Mean Corpuscular HGB Conc 32.2 g/dl (31.0-35.0); Mean Corpuscular Hemoglobin 29.8 pg (27.0-33.0); Mean Corpuscular Volume 92.3 fL (80.0-98.0); Mean Platelet Volume 9.7 fL (9.4-12.3); Monocytes Absolute Auto 0.8 X10*3/uL (0.1-1.2); Monocytes Percent Auto 9.2 % (2-11); Neutrophils Absolute Auto 5.7 x10*3/uL (2.0-8.3); Neutrophils Percent Auto 65.3 % (45-73); Platelet Count 204 X10*3/uL (160-400); Red Blood Count 4.57 X10*6/uL (4.20-5.50); Red Cell Distribution Width 14.3 % (11.0-16.0); White Blood Count 8.7 X10*3/uL (4.8-10.8)
[2023-09-07 17:32] LABS: Prothrombin Time 11.7 SEC (11.1-13.3)
[2023-09-07 17:40] LABS: Alanine Aminotransferase 25 U/L (0-31); Albumin Level 3.9 g/dL (3.5-5.0); Alkaline Phosphatase 67 U/L (39-117); Anion Gap 11 (12-20); Aspartate Amino Transferase 18 U/L (5-31); Bilirubin Total 0.4 mg/dL (0.0-1.0); Blood Urea Nitrogen 10 mg/dL (9-16); Calcium 8.9 mg/dL (8.4-10.2); Carbon Dioxide 26 mmol/L (22-29); Chloride 110 mmol/L (96-108); Creatinine Clr Calc Pharmacy 84.7; Estimated Glomerular Filt Rate > 60; Glucose Random 109 mg/dL (60-115); Lipase 22 U/L (8-78); Magnesium 2.1 mg/dL (1.6-2.6); Potassium 4.1 mmol/L (3.3-5.1); Sodium 143 mmol/L (135-145); Total Protein 7.4 g/dL (6.5-8.0)
[2023-09-07 17:48] LABS: Troponin-I High Sensitivity < 2.7 ng/L (<3.5-17.0)
[2023-09-07 21:13] VITALS: BP 153/90; PULSE 70; RESP 12; TEMP 36.9; O2SAT 98
[2023-09-07 21:44] LABS: B Type Natriuretic Peptide 15 pg/mL (<100)
[2023-09-07 22:01] LABS: Delay - Chemistry DELAY
[2023-09-07 22:32] LABS: Troponin-I High Sensitivity < 2.7 ng/L (<3.5-17.0)
== END 2023-09-08 00:20 | disposition home or self-care (01) ==
PROVIDERS: Physician Assistant Medical; Emergency Provider Emergency Medicine
DX: R07.9 Chest pain, unspecified (principal); R06.02 Shortness of breath; E11.9 Type 2 diabetes mellitus without complications; Z79.84 Long term (current) use of oral hypoglycemic drugs; Z79.899 Other long term (current) drug therapy
CPT/HCPCS: 36415; 71046; 80053; 83690; 83735; 83880; 84484; 85025; 85610; 93005; 99283; 99285

== ENCOUNTER → 2023-09-07 14:50 | Outpatient (BNV) | payer MEDICAID, SELFPAY | PROVIDERS: Visit Provider Internal Medicine | DX: R07.9 Chest pain, unspecified (principal); R94.31 Abnormal electrocardiogram [ECG] [EKG] | CPT/HCPCS: 93010 ==

== ENCOUNTER 2023-11-07 21:48 | Emergency (ER) | payer MEDICAID, SELFPAY ==
--- NOTE | ~2023-11-07 | XR_ITS ---
EXAMINATION: XR SHOULDER, LEFT CLINICAL INFORMATION: Pain. COMPARISON: None available. TECHNIQUE: Three views of the left shoulder. FINDINGS: There is a displaced fracture through the base of the greater tuberosity of the left humeral head. No dislocation. The acromioclavicular joint is normal. XR/XR shoulder LT min 2V IMPRESSION: Displaced fracture through the base of the greater tuberosity of the left humeral head.
[2023-11-07 22:04] VITALS: BP 152/76; PULSE 94; RESP 14; TEMP 37.1; O2SAT 95; BMI 39.9
[2023-11-07 22:47] VITALS: BP 175/69; PULSE 93; RESP 20; TEMP 36.7; O2SAT 95
[2023-11-08] MEDS: Ondansetron ODT 4 MG TAB.RAPDIS TRANSLINGU (00:24)
[2023-11-08] MEDS: Morphine Sulfate 4 MG/ML CARTRIDGE IM (00:24)
--- NOTE | 2023-11-08 00:55 | ED.EXTPRO ---
HPI - Extremity Problem General Chief complaint: Extremity Injury, Upper Stated complaint: fell down left arm and shoulder pain Time Seen by Provider: 11/07/23 23:54 Source: patient, RN notes reviewed and old records reviewed Mode of arrival: ambulatory Limitations: no limitations History of Present Illness HPI Narrative: 58-year-old female presents for evaluation of left shoulder pain. Patient reports that she was walking her dogs. She reports the big dog she was walking ran across the street and pulled her with her. The patient fell face forward and landed on her left shoulder. She immediately felt pain to the left shoulder She did not hit her head or lose consciousness She has not on any blood thinners Denies any headache or neck pain Patient denies any other injuries Related Data Home Medications ?Medication ?Instructions ?Recorded ?Confirmed calcium carbonate 600 mg calcium 600 mg PO DAILY 08/15/20 12/24/22 (1,500 mg) tablet metformin 500 mg tablet 500 mg PO BID 09/07/21 12/24/22 olanzapine 5 mg tablet 5 mg PO BEDTIME 09/07/21 12/24/22 alcohol swabs (Alcohol Prep Pads) 0 pad topical 12/23/21 12/24/22 blood sugar diagnostic (FreeStyle #10 ea 12/23/21 12/24/22 Lite Strips) blood-glucose meter (FreeStyle #1 ea 12/23/21 12/24/22 [place] Lite kit) cholecalciferol (vitamin D3) 50 50 mcg PO DAILY 12/23/21 12/24/22 mcg (2,000 unit) capsule clonazepam 1 mg tablet 1 mg PO TID PRN 12/23/21 12/24/22 lancets 33 gauge (TRUEplus Lancets) #100 ea 12/23/21 12/24/22 topiramate 100 mg tablet 100 mg PO DAILY migraine 12/23/21 12/24/22 zolpidem 12.5 mg tablet,extended 12.5 mg PO BEDTIME 12/23/21 12/24/22 release,multiphase buspirone 15 mg tablet 15 mg PO BID 08/25/23 omeprazole 20 mg capsule,delayed 20 mg PO DAILY 08/25/23 release sertraline 100 mg tablet 200 mg PO QAM 08/25/23 sumatriptan succinate 50 mg tablet 50 mg PO Q6H PRN migraine 08/25/23 Previous Rx's ?Medication ?Instructions ?Recorded acetaminophen 500 mg tablet 1,000 mg (2 x 500 mg) PO Q6H PRN 08/18/22 (Tylenol Extra Strength) fever or pain #20 tabs ibuprofen 400 mg tablet 400 mg PO TID PRN fever or pain 08/18/22 #30 tabs gabapentin 100 mg capsule 100 mg PO TID #90 caps 02/08/23 naproxen 500 mg tablet 500 mg PO BID #30 tabs 08/25/23 morphine 15 mg immediate release 15 mg PO Q6H PRN severe pain 11/08/23 tablet (scale score 7-10) #20 tabs Allergies Allergy/AdvReac Type Severity Reaction Status Date / Time quetiapine [From SEROQUEL] Allergy Unknown ELEVATED Verified 11/07/23 22:08 HEART RATE, increased heart rate oxycodone [From OxyContin] Allergy Gastrointestinal Verified 11/07/23 22:08 Upset Review of Systems Constitutional: Constitutional: Denies body ache(s), Denies chills, Denies fever(s) and Denies headache(s) ENT: Denies headache(s) and Denies sore throat Cardiovascular: Cardiovascular: Denies chest pain and Denies dyspnea Respiratory: Respiratory: Denies cough and Denies dyspnea Gastrointestinal: Gastrointestinal: Denies abdominal pain, Denies nausea and Denies vomiting Musculoskeletal: Musculoskeletal: Reports arthralgias, Reports joint swelling and Reports limited range of motion Integumentary/Breasts: Skin/Breast: Denies rash Neurologic: Denies headache(s) [facility] Past Medical History Medical History Morbid obesity Other and unspecified hyperlipidemia Abnormal EKG Precordial chest pain Type 2 diabetes mellitus with unspecified complications Chronic pain Palpitation Fibromyalgia Surgical History Hx of hysterectomy Hx of cholecystectomy Family History Family History Other Family history not known due to adoption Social History Social History Household Members: Children Housing: Apartment Alcohol intake: never Patient Tobacco Use Status: Never used Tobacco Advance Directives: No Advance Directives Information Provided: No service: No Current occupational status: disabled Physical Exam Vital Signs: Vital Signs: Last Vital Signs Temp 98.2 F 11/08/23 01:25 Pulse 90 11/08/23 01:25 Resp 18 11/08/23 01:25 BP 148/78 H 11/08/23 01:25 Pulse Ox 95 11/07/23 22:47 O2 Del Method Room Air 11/08/23 01:25 BMI result Body Mass Index 39.9 Const: General: healthy appearing, comfortable, no acute distress, alert and awake Nutritional Appearance: well nourished Orientation/consciousness: patient oriented x3 HEENT: Head: Yes normocephalic and Yes atraumatic Eyes: Eyelids: Yes eyelids normal Conjunctivae: conjunctivae normal Sclerae: sclerae normal Corneas: corneas normal Pupils: Equal, round and reactive pupils present EOM: EOMs intact bilaterally Neck: Neck: Yes full ROM Resp: Effort & Inspection: normal respiratory effort, able to speak in complete sentences and not labored Cardio: Rate: regular rate Rhythm: regular rhythm Back/Spine/Pelvis: Other: No C-spine tenderness Skin: General skin exam: elasticity normal Neuro: General: patient oriented x3 Cranial nerves: Yes Equal, round and reactive pupils present and Yes Bilaterally intact EOM present Cognition (Neuro): normal cognition Extrem: Other: Patient has tenderness to the left proximal humerus with decreased range of motion. She is unable to abduct her left upper extremity. There is no tenderness to left elbow, hand or wrist Medications Administered Discontinued Medications Generic Name Dose Route Start Last Admin Trade Name Freq PRN Reason Stop Dose Admin Morphine Sulfate 4 mg 11/08/23 00:09 11/08/23 00:24 Morphine Sulfate 4 Mg/Ml Cartridge IM 11/08/23 00:10 4 mg ONCE ONE Administration Protocol Ondansetron HCl 4 mg 11/08/23 00:09 11/08/23 00:24 Ondansetron Odt 4 Mg Tab.Rapdis TRANSLINGU 11/08/23 00:10 4 mg ONCE ONE Administration Medical Decision Making Medical Decision Making MDM Narrative: Patient had a fall landing directly on her left shoulder, she denies hitting her head or losing consciousness. She denies isolated. She has a proximal left humerus fracture. This was discussed with her. She was given a sling, analgesia and orthopedic referral. She has no other injuries noted on exam and denies any other pain. Differential Diagnosis Differential Diagnoses: The differential diagnosis associated with the presentation includes Left shoulder fracture Left shoulder dislocation Shoulder sprain Contusion Independent Interpretation I performed an independent interpretation of an: Plain X-Ray Interpretation: Agree with Radiology interpretation, fracture of the greater tuberosity of the left humerus Radiology Impression Discussion of test interpretation with radiology: I have reviewed the radiologist's reading. Radiologist Impression: IMPRESSION: Displaced fracture through the base of the greater tuberosity of the left humeral head. Discharge Plan Discharge Clinical Impression: Closed left humeral fracture Qualifiers: Encounter type: initial encounter Humerus Location: greater tuberosity Patient Disposition: Home, Self-Care Instructions: Arm Fracture in Adults (ED) Additional Instructions: You have a fracture of the greater tuberosity of your left humerus. Use ibuprofen/Tylenol as needed for pain You may use morphine every 6 hours as needed for more severe pain It is important that you follow-up with orthopedics Call the office of Dr. Huang tomorrow at the number provided Prescriptions: New morphine 15 mg tablet 15 mg PO Q6H PRN (Reason: severe pain (scale score 7-10)) Qty: 20 0RF Rx Instructions: Partial Fill upon patient request. No Action gabapentin 100 mg capsule 100 mg PO TID Qty: 90 5RF acetaminophen [Tylenol Extra Strength] 500 mg tablet 1,000 mg PO Q6H PRN (Reason: fever or pain) Qty: 20 0RF ibuprofen 400 mg tablet 400 mg PO TID PRN (Reason: fever or pain) Qty: 30 0RF calcium carbonate 600 mg calcium (1,500 mg) tablet 600 mg PO DAILY metformin 500 mg tablet 500 mg PO BID olanzapine 5 mg tablet 5 mg PO BEDTIME zolpidem 12.5 mg tablet,ext release multiphase 12.5 mg PO BEDTIME cholecalciferol (vitamin D3) 50 mcg (2,000 unit) capsule 50 mcg PO DAILY (DME) blood-glucose meter [FreeStyle [place] Lite] Kit See Rx Instructions .ROUTE TID Qty: 1 Rx Instructions: As directed (DME) FreeStyle Lite Strips Strip See Rx Instructions .ROUTE TID Qty: 10 Rx Instructions: As directed alcohol swabs [Alcohol Prep Pads] Pads, Medicated 0 pad topical (DME) lancets [TRUEplus Lancets] 33 gauge misc See Rx Instructions .ROUTE TID Qty: 100 Rx Instructions: As directed topiramate 100 mg tablet 100 mg PO DAILY clonazepam 1 mg tablet 1 mg PO TID PRN sumatriptan succinate 50 mg tablet 50 mg PO Q6H PRN (Reason: migraine) sertraline 100 mg tablet 200 mg PO QAM omeprazole 20 mg capsule,delayed release(DR/EC) 20 mg PO DAILY buspirone 15 mg tablet 15 mg PO BID naproxen 500 mg tablet 500 mg PO BID Qty: 30 1RF Referrals: Jason Huang MD [Physician] - (left humerus fx) Interventions: ED Discharge Assessment Last Done: 11/08/23 01:25 Discharge Date/Time: 11/08/23 01:35 Print Language: Japanese
[2023-11-08 01:25] VITALS: BP 148/78; PULSE 90; RESP 18; TEMP 36.8
== END 2023-11-08 01:35 | disposition home or self-care (01) ==
PROVIDERS: Emergency Provider Emergency Medicine
DX: S42.252A Displaced fracture of greater tuberosity of left humerus, initial encounter for closed fracture (principal); E11.9 Type 2 diabetes mellitus without complications; X50.9XXA Other and unspecified overexertion or strenuous movements or postures, initial encounter; Y93.K1 Activity, walking an animal; Y92.9 Unspecified place or not applicable; Y99.9 Unspecified external cause status; Z88.5 Allergy status to narcotic agent; Z88.8 Allergy status to other drugs, medicaments and biological substances
CPT/HCPCS: 73030; 96372; 99283; 99284; J2270

== ENCOUNTER 2023-11-15 14:14 | Outpatient (AMB) | payer MEDICAID, SELFPAY ==
--- NOTE | 2023-11-15 14:32 | A.OFFVIS_ITS ---
Intake Vital Signs 11/15/23 14:37 Height 5 ft 3 in Weight 225 lb BMI 39.9 Handedness Left Intake Visit Reasons: FC - ER follow up closed left humeral fracture Intake Note: Jannet is a 58 year old left hand dominant female who presents today for a evaluation of her left humeral fx, DOI 11/11/23. Patient reports that she was walking her dog and the dog went a little out if control and tugged on her arm making her fall on her left arm. She states having sharp/throbbing pain. Allergies quetiapine [From SEROQUEL] Allergy (Unknown, Verified 11/15/23 14:35) ELEVATED HEART RATE, increased heart rate oxycodone [From OxyContin] Allergy (Verified 11/15/23 14:35) Gastrointestinal Upset HPI FC - ER follow up closed left humeral fracture HPI Details 58-year-old left hand dominant female wagner jiménez presents in the office today, as a new patient, for an evaluation of left shoulder pain. Patient presented to the ED on 11/08/2023 status post being pulled by her dogs across the street when they began to run, causing the patient to fall landing on her left shoulder. X- rays were obtained. Patient was given a sling and prescribed Morphine 15 mg PO Q6H PRN. While in the office today the patient reported she was walking her dog when the dog got a little out of control and tugged her arm making her fall on her left upper extremity. She reports having a sharp throbbing pain. PFSH Medical History Morbid obesity Other and unspecified hyperlipidemia Abnormal EKG Precordial chest pain Type 2 diabetes mellitus with unspecified complications Chronic pain Palpitation Fibromyalgia Surgical History Hx of hysterectomy Hx of cholecystectomy Family History Other Family history not known due to adoption Social History Household Members: Children Housing: Apartment Alcohol intake: never Patient Tobacco Use Status: Never used Tobacco service: No Current occupational status: disabled Review of Systems Const All systems reviewed & are unremarkable except as noted in HPI and below Physical Exam Vital Signs: BMI result Body Mass Index 39.9 Const General: cooperative and no acute distress Orientation/consciousness: patient oriented x3 Resp Effort & Inspection: normal respiratory effort and able to speak in complete sentences Cardio Peripheral pulses: Peripheral pulses 2+ throughout Skin General skin exam: no rashes or lesions noted Neuro General: patient oriented x3 Extrem Other: Left upper extremity: Significant ecchymosis extending on the anterior aspect of the chest and down the upper extremity to the elbow. Able to flex and extend, inversion and eversion at the elbow. Left hand normal to inspection. No ecchymosis, erythema, or edema. Able to perform full finger flexion, extension, abduction, adduction, finger cross, okay sign, and thumbs up without deficit. Able to make a closed fist. Sensation intact. Capillary refill is brisk. Radial pulse intact. Office Procedures Fracture Care Fracture Billing Code: Fracture Billing Code Assessment & Plan Assessment & Plan (1) Closed fracture of left proximal humerus: Code(s): S42.202A - Unspecified fracture of upper end of left humerus, initial encounter for closed fracture Qualifiers: Encounter type: initial encounter Fracture morphology: unspecified fracture morphology Qualified Code(s): S42.202A - Unspecified fracture of upper end of left humerus, initial encounter for closed fracture Plan Ms. Quintero is a 58-year-old left hand dominant female who presents in the office today, as a new patient, for an evaluation of left shoulder pain. Patient presented to the ED on 11/08/2023 status post being pulled by her dogs across the street when they began to run, causing the patient to fall landing on her left shoulder. X-rays were obtained. Patient was given a sling and prescribed Morphine 15 mg PO Q6H PRN. While in the office today the patient reported she was walking her dog when the dog got a little out of control and tugged her arm making her fall on her left upper extremity. She reports having a sharp throbbing pain. Patient was placed in an ultra-sling for more padding and hopefully with the goal of being more comfortable to wear. She can freely move at the elbow, hand, and wrist. She was instructed to avoid external rotation and abduction with will place excess pressure on the rotator cuff. A prescription for Hydrocodone-a cetaminophen 5-325 mg PO Q4-6 H MT for pain was sent to the pharmacy today. I anticipated she will be able to being to work with PT on gentle ROM after her follow up appointment. Follow up will be in 4 weeks with repeat x-rays, or sooner if needed. X-rays of the left shoulder, obtained on 11/08/2023, revealed: Displaced fracture through the base of the greater tuberosity of the left humeral head. Orders: Orders XR shoulder LT min 2V 11/15/23 M25.519 - Pain in unspecified shoulder Medications: New hydrocodone-acetaminophen 5-325 mg Partial Fill upon patient request. 1 tab PO Q4-6H PRN 42 tabs 0RF pain 7 days Patient Instructions: Scribed by Lisa Garcia medical lab assistant, for Latricia James PA-C on 11/15/2023 at 2:22 pm, EST. Coding Level of Care Code New Pt Level 4 (57557) Diagnoses Closed fracture of proximal end of left humerus, unspecified fracture morphology, initial encounter S42. Encounter type: initial encounter Fracture morphology: unspecified fracture morphology CPT Codes Fracture Care - Fracture Billing Code: Fracture Billing Code ([id number])
[2023-11-15 14:37] VITALS: BMI 39.9
== END 2023-11-15 15:13 | disposition home or self-care (01) ==
PROVIDERS: Visit Provider Physician Assistant
DX: S42.202A Unspecified fracture of upper end of left humerus, initial encounter for closed fracture (principal)
CPT/HCPCS: 99204

== ENCOUNTER 2023-11-15 15:09 | Outpatient (REF) | payer MEDICAID, SELFPAY ==
--- NOTE | ~2023-11-15 | XR_ITS ---
EXAMINATION: XR SHOULDER, LEFT CLINICAL INFORMATION: Pain and unspecified shoulder COMPARISON: 11/07/2023. TECHNIQUE: Two views of the left shoulder. FINDINGS: Redemonstration of displaced fracture through the base of the greater tuberosity of the left humeral head. Acromioclavicular joint is preserved. No dislocation appreciated on views provided. XR/XR shoulder LT min 2V IMPRESSION: Redemonstration of displaced fracture through the base of the greater tuberosity of the left humeral head.
== END 2023-11-15 15:10 | disposition home or self-care (01) ==
LOC: HO.HOSX 15:09
PROVIDERS: Visit Provider Physician Assistant
DX: S42.202D Unspecified fracture of upper end of left humerus, subsequent encounter for fracture with routine healing (principal)
CPT/HCPCS: 73030; 99212

== ENCOUNTER 2023-12-16 12:32 | Outpatient (AMB) | payer MEDICAID, SELFPAY ==
--- NOTE | 2023-12-16 12:45 | A.OFFVIS_ITS ---
Intake Visit Reasons: OV-closed left humeral fracture-w/xray Intake Note: Jannet is a 58 year old left hand dominant female who presents today for a evaluation of her left humeral fx, DOI 11/11/23. Patient reports she is still having pain. Patient hasn't heard from P.T. Allergies quetiapine [From SEROQUEL] Allergy (Unknown, Verified 11/15/23 14:35) ELEVATED HEART RATE, increased heart rate oxycodone [From OxyContin] Allergy (Verified 11/15/23 14:35) Gastrointestinal Upset HPI HPI OV-closed left humeral fracture-w/xray: Details: 58-year-old left hand dominant female who presents in the office today for a follow up of a left proximal humerus fracture. I last saw the patient in the office on 11/15/2023 when she was placed in an ultra sling. She was instructed to avoid external rotation and abduction. A prescription for Hydrocodone- acetaminophen 5-325 mg PO Q4-6H PRN. While in the office today the patient reports she is still having pain. She reports PT has not reached out to her yet. [facility] Medical History Morbid obesity Other and unspecified hyperlipidemia Abnormal EKG Precordial chest pain Type 2 diabetes mellitus with unspecified complications Chronic pain Palpitation Fibromyalgia Surgical History Hx of hysterectomy Hx of cholecystectomy Family History Other Family history not known due to adoption Social History Household Members: Children Housing: Apartment Alcohol intake: never Patient Tobacco Use Status: Never used Tobacco service: No Current occupational status: disabled Review of Systems Const All systems reviewed & are unremarkable except as noted in HPI and below Physical Exam Const General: cooperative, healthy appearing and no acute distress Resp Effort & Inspection: normal respiratory effort and able to speak in complete sentences Cardio Rate: regular rate Peripheral pulses: Peripheral pulses 2+ throughout GI Palpation (GI): Soft to palpation Skin Lesions: no lesions Rashes: no rashes Extrem Other: Left shoulder: Forward flexion and abduction to 30 degrees. External rotation to neutral. Deltoid sensation intact. Able to perform wrist flexion and extension. Able to perform a thumbs up. NVI. Assessment & Plan Assessment & Plan (1) Closed fracture of left proximal humerus: Code(s): S42.A - Unspecified fracture of upper end of left humerus, initial encounter for closed fracture Category: Medical Qualifiers: Encounter type: initial encounter Fracture morphology: unspecified fracture morphology Qualified Code(s): S42.A - Unspecified fracture of upper end of left humerus, initial encounter for closed fracture Plan Ms. Quintero is a 58-year-old left hand dominant female who presents in the office today for a follow up of a left proximal humerus fracture. I last saw the patient in the office on 11/15/2023 when she was placed in an ultra sling. She was instructed to avoid external rotation and abduction. A prescription for Hydrocodone-acetaminophen 5-325 mg PO Q4-6H PRN. While in the office today the patient reports she is still having pain. She reports PT has not reached out to her yet. The office will contact physical therapy to get the patient scheduled as soon as possible. We discussed the overall goals of reaching the top of the head, being able to feed herself, and reaching her back pocket for hygiene. I gave the patient my card and the information for physical therapy. Should she not receive a call from physical therapy in the next week I would like her to call our office and we will reach out to PT for her. She was helped back into the sling while in the office. Discussed with the patient that she can alternat between Ibuprofen and Tylenol Q4H for pain relief. Follow up will be in 6 week, or sooner if needed. X-rays of the left shoulder which were obtained while in the office today and were reviewed by me, Latricia James PA-C, revealed routine healing of a left proximal humerus fracture. Orders: Orders XR shoulder LT min 2V Today M25.519 - Pain in unspecified shoulder Patient Instructions: Scribed by Lisa Garcia senior medical director, for Latricia James PA-C on 12/16/2023 at 12:34 am, EST. Coding Level of Care Code Global (89474) Diagnoses Closed fracture of proximal end of left humerus, unspecified fracture morphology, initial encounter S42. Encounter type: initial encounter Fracture morphology: unspecified fracture morphology
== END 2023-12-16 13:58 | disposition home or self-care (01) ==
PROVIDERS: Visit Provider Physician Assistant
DX: S42.202A Unspecified fracture of upper end of left humerus, initial encounter for closed fracture (principal)
CPT/HCPCS: 99213

== ENCOUNTER 2023-12-16 14:31 | Outpatient (REF) | payer MEDICAID, SELFPAY ==
--- NOTE | ~2023-12-16 | XR_ITS ---
EXAMINATION: XR SHOULDER, LEFT CLINICAL INFORMATION: Pain in shoulder COMPARISON: Prior radiographs most recent October 2023 TECHNIQUE: AP and lateral views of the left shoulder FINDINGS: The displaced comminuted fracture the proximal humerus is redemonstrated with unchanged appearance and alignment. There is callus formation identified at the level of the surgical neck new compared to prior. Acromial clavicular joint normal. XR/XR shoulder LT min 2V IMPRESSION: Healing fracture of the proximal humerus unchanged in alignment compared with [id number].
== END 2023-12-16 14:32 | disposition home or self-care (01) ==
LOC: HO.HOSX 14:31
PROVIDERS: Visit Provider Physician Assistant
DX: M25.512 Pain in left shoulder (principal); S42.202D Unspecified fracture of upper end of left humerus, subsequent encounter for fracture with routine healing; X58.XXXD Exposure to other specified factors, subsequent encounter
CPT/HCPCS: 73030; 99212

== ENCOUNTER 2024-01-27 09:00 | Outpatient (REF) | payer MEDICAID, SELFPAY | END 2024-01-27 09:01 | disposition home or self-care (01) | LOC: HO.HOSX 09:00 | PROVIDERS: Visit Provider Physician Assistant | DX: Z13.89 Encounter for screening for other disorder (principal) ==

== ENCOUNTER 2024-02-16 08:52 | Outpatient (REF) | payer MEDICAID, SELFPAY ==
--- NOTE | ~2024-02-16 | XR_ITS ---
EXAMINATION: XR SHOULDER, LEFT CLINICAL INFORMATION: Pain. COMPARISON: X-ray 12/16/2023. TECHNIQUE: Two views of the left shoulder. FINDINGS: Redemonstrated is a comminuted displaced fracture of the proximal humerus, stable in position and alignment. Redemonstrated is callus formation at the level of the surgical neck. Acromioclavicular joint is intact. No new acute fracture seen. XR/XR shoulder LT min 2V IMPRESSION: Stable position and alignment of a comminuted displaced proximal humeral fracture, with healing changes. Study is assigned for dictation on March 09, 2024.
== END 2024-02-16 08:53 | disposition home or self-care (01) ==
LOC: HO.HOSX 08:52
PROVIDERS: Visit Provider Physician Assistant
DX: S42.202D Unspecified fracture of upper end of left humerus, subsequent encounter for fracture with routine healing (principal)
CPT/HCPCS: 73030; 99212

== ENCOUNTER 2024-02-16 12:52 | Outpatient (AMB) | payer MEDICAID, SELFPAY ==
--- NOTE | 2024-02-16 13:23 | MHC.OFFVIS ---
Vital Signs 02/16/24 13:30 Height 5 ft 3 in Weight 225 lb BMI 39.9 Handedness Left Intake Visit Reasons: OV-closed left humeral fracture 11/11/23 Intake Note: Jannet is a 58 year old left hand dominant female who presents today with a ultra sling for a evaluation of her left humeral fx, DOI 11/11/23. Patient reports her pain is a bit better but she is still having mild pain. She stated that Physical Therapy wouldn't see her until she saw her PCP. Allergies quetiapine [From SEROQUEL] Allergy (Unknown, Verified 02/16/24 13:29) ELEVATED HEART RATE, increased heart rate oxycodone [From OxyContin] Allergy (Verified 02/16/24 13:29) Gastrointestinal Upset HPI HPI OV-closed left humeral fracture 11/11/23: Details: 59-year-old left hand dominant female who presents in the office today, wear the ultra-sling, for a follow up of a left proximal humerus fracture, which occurred on 11/08/2023 status post being pulled by her dogs across the street. I last saw the patient in the office on 12/16/2023 when the patient was encouraged to work with physical therapy on ROM. ? ? While in the office today, the patient reports her pain is a bit better. She describes it as mild. She states she was unable to attend physical therapy at this time due to them requesting her to see her PCP.? [facility] Medical History Morbid obesity Other and unspecified hyperlipidemia Abnormal EKG Precordial chest pain Type 2 diabetes mellitus with unspecified complications Chronic pain Palpitation Fibromyalgia Surgical History Hx of hysterectomy Hx of cholecystectomy Family History Other Family history not known due to adoption Social History Household Members: Children Housing: Apartment Alcohol intake: never Patient Tobacco Use Status: Never used Tobacco service: No Current occupational status: disabled Review of Systems Const All systems reviewed & are unremarkable except as noted in HPI and below Physical Exam Vital Signs: BMI result Body Mass Index 39.9 Const General: cooperative, healthy appearing and no acute distress Resp Effort & Inspection: normal respiratory effort and able to speak in complete sentences Cardio Rate: regular rate Peripheral pulses: Peripheral pulses 2+ throughout GI Palpation (GI): Soft to palpation Skin Lesions: no lesions Rashes: no rashes Extrem Other: Left shoulder: Normal to inspection. No ecchymosis, erythema, or edema. Forward flexion to 50 degrees. Abduction to 45 degrees. External rotation to neutral. Able to reach the side of her head. NVI.? Assessment & Plan Assessment & Plan (1) Closed fracture of left proximal humerus: Code(s): S42.A - Unspecified fracture of upper end of left humerus, initial encounter for closed fracture Category: Medical Qualifiers: Encounter type: initial encounter Fracture morphology: unspecified fracture morphology Qualified Code(s): S42.202A - Unspecified fracture of upper end of left humerus, initial encounter for closed fracture Plan Ms. Quintero is a 59-year-old left hand dominant female who presents in the office today, wear the ultra-sling, for a follow up of a left proximal humerus fracture, which occurred on 11/08/2023 status post being pulled by her dogs across the street. I last saw the patient in the office on 12/16/2023 when the patient was encouraged to work with physical therapy on ROM. ? ? While in the office today, the patient reports her pain is a bit better. She describes it as mild. She states she was unable to attend physical therapy at this time due to them requesting her to see her PCP.? ? The patient reports she attempted to make an appointment with physical therapy, however, needed a referral from her PCP, Dr. Kunz. She reports when she called the PCP office, she was told she needed to be seen prior to the referral being placed. She states her PCP office does not have an available appointment for a month from now. Our office will attempt to call her PCP?s office to help expedite this process. I educated the patient on this as well. The patient was instructed that if she does not hear from the PCP office by Tuesday02/21/2024 to call our office and we will reach out. Follow-up will be in six weeks, or sooner if needed. ? ? X-rays of the left shoulder which were obtained while in the office today and were reviewed by me, Latricia James PA-C, revealed routine healing of a left proximal humerus fracture. ? Orders: Orders XR shoulder LT min 2V Today M25.519 - Pain in unspecified shoulder Patient Instructions: Scribed by Lisa Garcia diploma medical assistant, for Latricia James PA-C on 02/16/2024 at 1:14 pm, EST.? Coding Level of Care Code Est Pt Level 3 (02758) Diagnoses Closed fracture of proximal end of left humerus, unspecified fracture morphology, initial encounter S4 Encounter type: initial encounter Fracture morphology: unspecified fracture morphology
[2024-02-16 13:30] VITALS: BMI 39.9
== END 2024-02-16 13:52 | disposition home or self-care (01) ==
PROVIDERS: Visit Provider Physician Assistant
DX: S42.202A Unspecified fracture of upper end of left humerus, initial encounter for closed fracture (principal)
CPT/HCPCS: 99213

== ENCOUNTER 2024-03-29 12:11 | Outpatient (REF) | payer MEDICAID, SELFPAY ==
--- NOTE | ~2024-03-29 | XR_ITS ---
EXAMINATION: XR SHOULDER, LEFT CLINICAL INFORMATION: Left shoulder pain. COMPARISON: Radiograph dated 02/16/2024 TECHNIQUE: Three views of the left shoulder. FINDINGS: Progressive osseous bridging is evident at the comminuted fracture of the left humeral head and neck. Alignment of the displaced greater tuberosity and transverse humeral neck fragments appears unchanged. No new fractures are identified. Mild glenohumeral osteoarthritis with marginal osteophytes of the glenoid. AC joint appears relatively well preserved. Bones are osteopenic. No acute soft tissue findings. XR/XR shoulder LT min 2V IMPRESSION: Progressive healing of the comminuted fracture of the left humeral head and neck with unchanged alignment. Electronically signed by: Jaquan Padgett MD 04/04/2024 03:27 PM EDT
== END 2024-03-29 12:12 | disposition home or self-care (01) ==
LOC: HO.HOSX 12:11
PROVIDERS: Visit Provider Physician Assistant
DX: M25.512 Pain in left shoulder (principal); S42.202D Unspecified fracture of upper end of left humerus, subsequent encounter for fracture with routine healing
CPT/HCPCS: 73030; 99212

== ENCOUNTER 2024-03-29 12:52 | Outpatient (AMB) | payer MEDICAID, SELFPAY ==
--- NOTE | 2024-03-29 13:33 | MHC.OFFVIS ---
Intake Visit Reasons: OV-left humeral fx, DOI 11/11/23 Intake Note: Jannet is a 58 year old left hand dominant female who presents today for a follow up of her left humeral fx, DOI 11/11/23. Patient reports she is still having a lot of pain with movement and at night. She mentions that she hasn't started with PT due physical therapy wanting her to see her PCP which she has a pending appointment. Allergies quetiapine [From SEROQUEL] Allergy (Unknown, Verified 03/29/24 13:35) ELEVATED HEART RATE, increased heart rate oxycodone [From OxyContin] Allergy (Verified 03/29/24 13:35) Gastrointestinal Upset HPI HPI OV-left humeral fx, DOI 11/11/23: Details: 59-year-old left hand dominant female who presents in the office today for a follow up of a left proximal humerus fracture, which occurred on 11/08/23 status post being pulled by her dogs across the street. I last saw the patient in the office on 02/16/24 when our office attempted to contact her PCP office to get the patient in sooner due to not being able to attend physical therapy without a primary PCP. ? ? While in the office today, the patient reports she is still having significant pain with ROM and at night. The patient states she still has not started to work with physical therapy as they require, her to have a primary PCP. She does have a pending appointment. ? [facility] Medical History Morbid obesity Other and unspecified hyperlipidemia Abnormal EKG Precordial chest pain Type 2 diabetes mellitus with unspecified complications Chronic pain Palpitation Fibromyalgia Surgical History Hx of hysterectomy Hx of cholecystectomy Family History Other Family history not known due to adoption Social History Household Members: Children Housing: Apartment Alcohol intake: never Patient Tobacco Use Status: Never used Tobacco service: No Current occupational status: disabled Review of Systems Const All systems reviewed & are unremarkable except as noted in HPI and below Physical Exam Const General: cooperative, healthy appearing and no acute distress Resp Effort & Inspection: normal respiratory effort and able to speak in complete sentences Cardio Rate: regular rate Peripheral pulses: Peripheral pulses 2+ throughout GI Palpation (GI): Soft to palpation Skin Lesions: no lesions Rashes: no rashes Extrem Other: Left shoulder: Forward flexion and abduction to 90 degrees. Able to reach the side of her head.?Able to reach the greater trochanter bursa. NVI.? Assessment & Plan Assessment & Plan (1) Closed fracture of left proximal humerus: Code(s): S42.A - Unspecified fracture of upper end of left humerus, initial encounter for closed fracture Category: Medical Qualifiers: Encounter type: initial encounter Fracture morphology: unspecified fracture morphology Qualified Code(s): S42.A - Unspecified fracture of upper end of left humerus, initial encounter for closed fracture Plan Ms. Quintero is a 59-year-old left hand dominant female who presents in the office today for a follow up of a left proximal humerus fracture, which occurred on 11/08/23 status post being pulled by her dogs across the street. I last saw the patient in the office on 02/16/24 when our office attempted to contact her PCP office to get the patient in sooner due to not being able to attend physical therapy without a primary PCP. ? ? While in the office today, the patient reports she is still having significant pain with ROM and at night. The patient states she still has not started to work with physical therapy as they require, her to have a primary PCP. She does have a pending appointment.? ? The patient needs to attend physical therapy; however, she is having difficulty due to not having an appointment with a new PCP until the end of April. The office will again try to contact the PCP?s office for an urgent request for an appointment so the patient can begin PT as soon as possible, as this is pertinent to her recovery. Follow-up will be in six weeks, or sooner if needed. ? ? X-rays of the left shoulder which were obtained while in the office today and were reviewed by me, Latricia James PA-C, revealed routine healing of a left proximal humerus fracture.? Orders: Orders XR shoulder LT min 2V Today M25.519 - Pain in unspecified shoulder Medications: New celecoxib (Celebrex) 200 mg PO BID 60 caps 0RF 30 days Coding Level of Care Code Est Pt Level 3 (20374) Complex EM visit Add On G2211 Diagnoses Closed fracture of proximal end of left humerus, unspecified fracture morphology, initial encounter S42.A Encounter type: initial encounter Fracture morphology: unspecified fracture morphology
== END 2024-03-29 14:15 | disposition home or self-care (01) ==
PROVIDERS: Visit Provider Physician Assistant
DX: S42.202A Unspecified fracture of upper end of left humerus, initial encounter for closed fracture (principal)
CPT/HCPCS: 99214

== ENCOUNTER 2024-05-10 22:48 | Emergency (ER) | payer MEDICAID, SELFPAY ==
--- NOTE | ~2024-05-10 | CT_ITS ---
EXAMINATION: CT CERVICAL SPINE WITHOUT CONTRAST; UNENHANCED CT OF THE HEAD. CLINICAL INFORMATION: Fall. EtOH. COMPARISON: CT head 08/09/2023 TECHNIQUE: Routine unenhanced CT of the head with multiple coronal and sagittal reformatted images; routine unenhanced CT of the cervical spine with multiple coronal and sagittal reformatted images. This CT examination was performed using dose optimization techniques as appropriate, variously including the following: *Automated exposure control *Adjustment of mA and/or kV according to patient size (this includes techniques or standardized protocols for targeted exams where dose is matched to indication/reason for exam; i.e. extremities or head) *Use of iterative reconstruction technique DLP: 1154 mGy-cm FINDINGS: No intracranial hemorrhage, tumors or acute infarcts identified. Mild diffuse commensurate prominence of the ventricles and sulci. No focal parenchymal lesions of the brain. No gross extra cranial soft tissue inflammatory changes. Normal appearance of the orbits and globes. No significant opacification of the visualized paranasal sinuses, mastoid air cells and middle ear cavities. CT cervical spine: No fractures or acute appearing subluxation is noted. Moderate intervertebral disc space narrowing and moderate posterior endplate disc-osteophyte complex C6-C7. CT/CT head/brain wo IV con IMPRESSION: CT HEAD: No acute intracranial abnormalities. CT CERVICAL SPINE: 1. No acute abnormalities. 2. Moderate chronic spondylosis C6-C7. Electronically signed by: Bassam Roman MD 05/11/2024 01:55 AM EDT
--- NOTE | ~2024-05-10 | CT_ITS ---
EXAMINATION: CT CERVICAL SPINE WITHOUT CONTRAST; UNENHANCED CT OF THE HEAD. CLINICAL INFORMATION: Fall. EtOH. COMPARISON: CT head 08/09/2023 TECHNIQUE: Routine unenhanced CT of the head with multiple coronal and sagittal reformatted images; routine unenhanced CT of the cervical spine with multiple coronal and sagittal reformatted images. This CT examination was performed using dose optimization techniques as appropriate, variously including the following: *Automated exposure control *Adjustment of mA and/or kV according to patient size (this includes techniques or standardized protocols for targeted exams where dose is matched to indication/reason for exam; i.e. extremities or head) *Use of iterative reconstruction technique DLP: 1154 mGy-cm FINDINGS: No intracranial hemorrhage, tumors or acute infarcts identified. Mild diffuse commensurate prominence of the ventricles and sulci. No focal parenchymal lesions of the brain. No gross extra cranial soft tissue inflammatory changes. Normal appearance of the orbits and globes. No significant opacification of the visualized paranasal sinuses, mastoid air cells and middle ear cavities. CT cervical spine: No fractures or acute appearing subluxation is noted. Moderate intervertebral disc space narrowing and moderate posterior endplate disc-osteophyte complex C6-C7. CT/CT cervical spine wo IV con IMPRESSION: CT HEAD: No acute intracranial abnormalities. CT CERVICAL SPINE: 1. No acute abnormalities. 2. Moderate chronic spondylosis C6-C7. Electronically signed by: Bassam Roman MD 05/11/2024 01:55 AM EDT
[2024-05-10 22:56] VITALS: BP 194/100; PULSE 95; O2SAT 96
[2024-05-10 22:59] VITALS: BP 166/75; PULSE 80; RESP 16; TEMP 36.8; O2SAT 94
[2024-05-10 23:06] VITALS: BP 166/75; PULSE 83; RESP 14; TEMP 36.5; O2SAT 92; BMI 41.3
[2024-05-11] VITALS: BP 144/73; PULSE 92; RESP 15; TEMP 36.7; O2SAT 96
--- NOTE | 2024-05-11 00:26 | ED.FALL ---
HPI - Fall General Chief Complaint: Fall Stated Complaint: Hit top of head, no thinners,confusion Time Seen by Provider: 05/11/24 00:18 Source: patient and EMS Mode of arrival: EMS Limitations: no limitations History of Present Illness ED Provider: Dr. Lary Villanueva HPI Narrative: Patient comes to the emergency room complaining of a laceration to the head. Patient states that she was sleeping, patient turned over in her bed, miscalculated where the edge was, fell and hit the back of her head a piece of furniture. Patient has sustained a small laceration to the scalp, patient's called 911. Patient complaining of headache, no neck pain. Patient admits that she drank beer before she went to bed. Related Data Home Medications ?Medication ?Instructions ?Recorded ?Confirmed calcium carbonate 600 mg PO DAILY 08/15/20 12/24/22 metformin 500 mg tablet 500 mg PO BID 09/07/21 12/24/22 olanzapine 5 mg tablet 5 mg PO BEDTIME 09/07/21 12/24/22 alcohol swabs (Alcohol Prep Pads) 0 pad topical 12/23/21 12/24/22 blood sugar diagnostic (FreeStyle #10 ea 12/23/21 12/24/22 Lite Strips) blood-glucose meter (FreeStyle #1 ea 12/23/21 12/24/22 [place] Lite kit) cholecalciferol (vitamin D3) 50 50 mcg PO DAILY 12/23/21 12/24/22 mcg (2,000 unit) capsule clonazepam 1 mg tablet 1 mg PO TID PRN 12/23/21 12/24/22 lancets 33 gauge (TRUEplus Lancets) #100 ea 12/23/21 12/24/22 topiramate 100 mg tablet 100 mg PO DAILY migraine 12/23/21 12/24/22 zolpidem 12.5 mg tablet,extended 12.5 mg PO BEDTIME 12/23/21 12/24/22 release,multiphase buspirone 15 mg tablet 15 mg PO BID 08/25/23 omeprazole 20 mg capsule,delayed 20 mg PO DAILY 08/25/23 release sertraline 100 mg tablet 200 mg PO QAM 08/25/23 sumatriptan succinate 50 mg tablet 50 mg PO Q6H PRN migraine 08/25/23 Previous Rx's ?Medication ?Instructions ?Recorded gabapentin 100 mg capsule 100 mg PO TID #90 caps 02/08/23 naproxen 500 mg tablet 500 mg PO BID #30 tabs 08/25/23 celecoxib 200 mg capsule 200 mg PO BID #60 caps 05/10/24 Allergies Allergy/AdvReac Type Severity Reaction Status Date / Time quetiapine [From SEROQUEL] Allergy Unknown ELEVATED Verified 05/10/24 23:09 HEART RATE, increased heart rate oxycodone [From OxyContin] Allergy Gastrointestinal Verified 05/10/24 23:09 Upset Review of Systems Review of Systems: Constitutional : No Weight loss, No Fever, No Chills, No Night Sweats, No Fatigue, No Malaise ENT/Mouth : No Hearing loss, No Ear Pain, No Nasal Congestion, No Sinus Pain, No Hoarseness, No sore throat, No Rhinorrhea, No Swallowing Difficulty Eyes: No Eye Pain, No Swelling, No Redness, No Foreign Body, No Discharge, No Vision Changes Cardiovascular : No Chest Pain, No SOB, No Dyspnea on Exertion, No Orthopnea, No Edema, No Palpitations Respiratory : No Cough, No Sputum, No Wheezing, No Smoke Exposure, No Dyspnea Gastrointestinal : No Nausea, No Vomiting, No Diarrhea, No Constipation, No abdominal Pain, No Hematochezia, No Melena Genitourinary : no irregular bleeding, No Dysuria, No Urinary Frequency, No Hematuria, No Urinary Incontinence, No Urgency, No Flank Pain, No Urinary Flow Changes, No Hesitancy Musculoskeletal : No joint pain, No Myalgias, No Joint Swelling patient has a 1 cm superficial laceration to the scalp, no cherelle needed Skin : No Skin Lesions, No rash Neuro : No Weakness, No Numbness, No Paresthesias, No Loss of Consciousness, No Dizziness, complaining of Headache Psych : No Anxiety/Panic, No Depression, No SI/HI/AH/VH, No Social Issues, Heme/Lymph: No Bruising, No Bleeding,No Lymphadenopathy Endocrine : No Polyuria, No Polydipsia, No Temperature Intolerance [facility] Past Medical History Medical History Morbid obesity Other and unspecified hyperlipidemia Abnormal EKG Precordial chest pain Type 2 diabetes mellitus with unspecified complications Chronic pain Palpitation Fibromyalgia Surgical History Hx of hysterectomy Hx of cholecystectomy Family History Family History Other Family history not known due to adoption Social History Social History Household Members: Children Housing: Apartment Alcohol intake: never Patient Tobacco Use Status: Never used Tobacco Advance Directives: No Advance Directives Information Provided: No service: No Current occupational status: disabled Physical Exam Vital Signs: Vital Signs: Last Vital Signs Temp 98.1 F 05/11/24 02:00 Pulse 77 05/11/24 02:00 Resp 16 05/11/24 02:00 BP 129/70 05/11/24 02:00 Pulse Ox 93 05/11/24 02:00 O2 Del Method Room Air 05/11/24 02:00 O2 Flow Rate 2 05/11/24 00:00 BMI result Body Mass Index 41.3 Const: Other: Appearance: Alert. Oriented X3. No acute distress. Clinically sober Eyes: Pupils equal, round and reactive to light. ENT: Pharynx normal. Neck: Normal inspection. Neck supple. No lymph nodes noted. No crepitus CVS: Normal heart rate and rhythm. Pulses normal. Normal S1 and S2 Respiratory: No respiratory distress. Breath sounds normal. No Wheezing. No rales Abdomen: Soft and nontender. No rigidity. No distention. Skin: Skin warm and dry. Normal skin color. Normal skin turgor. Extremities: No lower extremity edema. No Lacerations. No Rash Neuro: Oriented X 3. No motor deficit. No sensory deficit. Moving all extremities. No slurred speech. CN 2 through 12 grossly intact Psych: calm, cooperative, normal affect Course Course Course Narrative: Patient given p.o. Tylenol Cervical spine and CT of the head pending Medications Administered Discontinued Medications Generic Name Dose Route Start Last Admin Trade Name Freq PRN Reason Stop Dose Admin Acetaminophen 975 mg 05/11/24 00:27 05/11/24 00:50 Acetaminophen 325 Mg Tablet PO 05/11/24 00:28 975 mg ONCE ONE Administration Medical Decision Making Medical Decision Making MDM Narrative: Patient awake, alert, GCS of 15 -my interpretation of CT scan, no obvious abnormality -patient does not need stitches Differential Diagnosis Differential Diagnoses: The differential diagnosis associated with the presentation includes (Head contusion, concussion, intracranial bleed, cervical spine injury) Independent Interpretation I performed an independent interpretation of an: CT Scan Interpretation: No intracranial hemorrhage, tumors or acute infarcts identified. Mild diffuse commensurate prominence of the ventricles and sulci. No focal parenchymal lesions of the brain. No gross extra cranial soft tissue inflammatory changes. Normal appearance of the orbits and globes. No significant opacification of the visualized paranasal sinuses, mastoid air cells and middle ear cavities. CT cervical spine: No fractures or acute appearing subluxation is noted. Moderate intervertebral disc space narrowing and moderate posterior endplate disc-osteophyte complex C6-C7. CT/CT head/brain wo IV con IMPRESSION: CT HEAD: No acute intracranial abnormalities. CT CERVICAL SPINE: 1. No acute abnormalities. 2. Moderate chronic spondylosis C6-C7. Discharge Plan Discharge Clinical Impression: Contusion Patient Disposition: Home, Self-Care Instructions: Scalp Contusion in Adults (ED) Additional Instructions: Please follow-up with your primary care physician tomorrow. If you have any worsening or new symptoms, please return to the emergency room or call 911 Prescriptions: No Action gabapentin 100 mg capsule 100 mg PO TID Qty: 90 5RF celecoxib 200 mg capsule 200 mg PO BID Qty: 60 0RF calcium carbonate 600 mg calcium (1,500 mg) tablet 600 mg PO DAILY metformin 500 mg tablet 500 mg PO BID olanzapine 5 mg tablet 5 mg PO BEDTIME zolpidem 12.5 mg tablet,ext release multiphase 12.5 mg PO BEDTIME cholecalciferol (vitamin D3) 50 mcg (2,000 unit) capsule 50 mcg PO DAILY (DME) blood-glucose meter [FreeStyle [place] Lite] Kit See Rx Instructions .ROUTE TID Qty: 1 Rx Instructions: As directed (DME) FreeStyle Lite Strips Strip See Rx Instructions .ROUTE TID Qty: 10 Rx Instructions: As directed alcohol swabs [Alcohol Prep Pads] Pads, Medicated 0 pad topical (DME) lancets [TRUEplus Lancets] 33 gauge misc See Rx Instructions .ROUTE TID Qty: 100 Rx Instructions: As directed topiramate 100 mg tablet 100 mg PO DAILY clonazepam 1 mg tablet 1 mg PO TID PRN sumatriptan succinate 50 mg tablet 50 mg PO Q6H PRN (Reason: migraine) sertraline 100 mg tablet 200 mg PO QAM omeprazole 20 mg capsule,delayed release(DR/EC) 20 mg PO DAILY buspirone 15 mg tablet 15 mg PO BID naproxen 500 mg tablet 500 mg PO BID Qty: 30 1RF Print Language: Faroese
[2024-05-11] MEDS: Acetaminophen 325 MG TABLET 975 MG PO (00:50)
[2024-05-11 02:00] VITALS: BP 129/70; PULSE 77; RESP 16; TEMP 36.7; O2SAT 93
[2024-05-11 03:08] VITALS: BP 129/70; PULSE 77; RESP 16; TEMP 36.7; O2SAT 93
== END 2024-05-11 03:12 | disposition home or self-care (01) ==
PROVIDERS: Emergency Provider Emergency Medicine; PCP Internal Medicine Geriatric Medicine
DX: S00.03XA Contusion of scalp, initial encounter (principal); R51.9 Headache, unspecified; M54.2 Cervicalgia; Y28.8XXA Contact with other sharp object, undetermined intent, initial encounter; Y93.89 Activity, other specified; Y92.092 Bedroom in other non-institutional residence as the place of occurrence of the external cause; Y99.8 Other external cause status
CPT/HCPCS: 70450; 72125; 99284

== ENCOUNTER 2024-05-29 13:04 | Outpatient (REF) | payer MEDICAID, SELFPAY | END 2024-05-29 13:05 | disposition home or self-care (01) | LOC: HO.HOSX 13:04 | PROVIDERS: Visit Provider Physician Assistant | DX: Z13.89 Encounter for screening for other disorder (principal) ==

== ENCOUNTER 2024-06-10 17:38 | Emergency (ER) | payer MEDICAID, SELFPAY ==
--- NOTE | ~2024-06-10 | XR_ITS ---
EXAMINATION: XR CHEST CLINICAL INFORMATION: Cough COMPARISON: Chest radiograph 09/07/2023 TECHNIQUE: 2 views of the chest were obtained. FINDINGS: The lungs are well-expanded. Subtle hazy opacity in the left lung base. The right lung appears clear. No pleural effusions or pneumothorax. The cardiac mediastinal silhouette is within normal limits. Degenerative changes of the thoracic spine. No acute osseous abnormality. XR/XR chest 2V IMPRESSION: Subtle hazy opacity in the left lung base represent atelectasis or infiltrate. Electronically signed by: Joel Perez MD 06/10/2024 06:43 PM MARAL
[2024-06-10 17:43] VITALS: BP 147/65; PULSE 87; RESP 19; TEMP 36.6; O2SAT 95; BMI 39.6
--- NOTE | 2024-06-10 17:44 | ED_ITS ---
HPI - General Adult General Chief complaint: Upper Respiratory Symptoms Stated complaint: Chest Congestion Time Seen by Provider: 06/10/24 21:53 Source: patient Mode of arrival: ambulatory Limitations: no limitations History of Present Illness ED Provider: zulay COURTNEY narrative: Patient with no significant lung issues in the past diabetic has been coughing for last 4 days cough is mostly dry no fever no chills does have running nose and stuffy nose no other family member sick Related Data Home Medications ?Medication ?Instructions ?Recorded ?Confirmed calcium carbonate 600 mg PO DAILY 08/15/20 12/24/22 metformin 500 mg tablet 500 mg PO BID 09/07/21 12/24/22 olanzapine 5 mg tablet 5 mg PO BEDTIME 09/07/21 12/24/22 alcohol swabs (Alcohol Prep Pads) 0 pad topical 12/23/21 12/24/22 blood sugar diagnostic (FreeStyle #10 ea 12/23/21 12/24/22 Lite Strips) blood-glucose meter (FreeStyle #1 ea 12/23/21 12/24/22 [place] Lite kit) cholecalciferol (vitamin D3) 50 50 mcg PO DAILY 12/23/21 12/24/22 mcg (2,000 unit) capsule clonazepam 1 mg tablet 1 mg PO TID PRN 12/23/21 12/24/22 lancets 33 gauge (TRUEplus Lancets) #100 ea 12/23/21 12/24/22 topiramate 100 mg tablet 100 mg PO DAILY migraine 12/23/21 12/24/22 zolpidem 12.5 mg tablet,extended 12.5 mg PO BEDTIME 12/23/21 12/24/22 release,multiphase buspirone 15 mg tablet 15 mg PO BID 08/25/23 omeprazole 20 mg capsule,delayed 20 mg PO DAILY 08/25/23 release sertraline 100 mg tablet 200 mg PO QAM 08/25/23 sumatriptan succinate 50 mg tablet 50 mg PO Q6H PRN migraine 08/25/23 Previous Rx's ?Medication ?Instructions ?Recorded gabapentin 100 mg capsule 100 mg PO TID #90 caps 02/08/23 naproxen 500 mg tablet 500 mg PO BID #30 tabs 08/25/23 celecoxib 200 mg capsule 200 mg PO BID #60 caps 05/10/24 benzonatate 200 mg capsule 200 mg PO TID PRN cough #20 caps 06/10/24 cefuroxime axetil 500 mg tablet 500 mg PO BID 7 days #14 tabs 06/10/24 Allergies Allergy/AdvReac Type Severity Reaction Status Date / Time quetiapine [From SEROQUEL] Allergy Unknown ELEVATED Verified 06/10/24 17:44 HEART RATE, increased heart rate oxycodone [From OxyContin] Allergy Gastrointestinal Verified 05/10/24 23:09 Upset Review of Systems Review of Systems: Yes all other systems are reviewed and are negative [facility] Past Medical History Medical History Morbid obesity Other and unspecified hyperlipidemia Abnormal EKG Precordial chest pain Type 2 diabetes mellitus with unspecified complications Chronic pain Palpitation Fibromyalgia Surgical History Hx of hysterectomy Hx of cholecystectomy Family History Family History Other Family history not known due to adoption Social History Social History Household Members: Children Housing: Apartment Alcohol intake: current Alcohol intake frequency: a few times a week Patient Tobacco Use Status: Never used Tobacco Advance Directives: No Advance Directives Information Provided: No service: No Current occupational status: disabled Physical Exam ED Vital Signs: Vital Signs - 24 hr 06/10/24 17:43 06/10/24 21:13 06/10/24 22:13 Temperature 98 F 98.4 F 98 F Pulse Rate 87 87 88 Respiratory Rate 19 20 18 Blood Pressure 147/65 H 151/76 H 148/74 H Pulse Oximetry 95 97 98 Oxygen Delivery Method Room Air Room Air Room Air 06/10/24 22:28 Temperature 98 F Pulse Rate 88 Respiratory Rate 18 Blood Pressure 148/74 H Pulse Oximetry 98 Oxygen Delivery Method Room Air BMI result Body Mass Index 39.6 Appearance: Alert. Oriented X3. No acute distress. ENT: Pharynx normal. Oral Mucosa moist clear nasal discharge Neck: Normal inspection. Neck supple. CVS: Normal heart rate and rhythm. Pulses normal. Respiratory: No respiratory distress. Equal air entry bilateral, no wheezing/rales/rhonchi Skin: Skin warm and dry. Normal skin color. Normal skin turgor. Extremities: No lower extremity edema. Neuro: Oriented X 3. Course Course Course Narrative: RME performed by Maliha Og PA-C. Patient is a 59 year old assigned female at presenting to the emergency department with a cough. Patient states she has had a cough over the last day or so and is now having a headache. Detailed physical exam and review of systems are deferred to the paid search marketing strategist. Swabs and chest x-ray ordered. Patient placed back in the waiting room pending room availability and results. Medications Administered Discontinued Medications Generic Name Dose Route Start Last Admin Trade Name Freq PRN Reason Stop Dose Admin Benzonatate 200 mg 06/10/24 22:13 06/10/24 22:27 Benzonatate 100 Mg Capsule PO 06/10/24 22:14 200 mg ONCE ONE Administration Cefuroxime Axetil 500 mg 06/10/24 22:13 06/10/24 22:26 Cefuroxime Axetil 500 Mg Tablet PO 06/10/24 22:14 500 mg ONCE ONE Administration Medical Decision Making Medical Decision Making [facility] Narrative: Patient with viral URI/bronchitis COVID negative will prescribe Tessalon and Ceftin Lab Data [facility] Lab Attestation statement: I reviewed the patient's lab results. Labs: Lab Results 06/10/24 Range/Units 17:52 Influenza Type A (PCR) NEGATIVE (Negative) Influenza Type B (PCR) NEGATIVE (Negative) RSV RNA Qual (PCR) NEGATIVE (Negative) SARS-CoV-2 RNA (RT-PCR) NEGATIVE (Negative) Independent Interpretation I performed an independent interpretation of an: Plain X-Ray Radiology Impression Discussion of test interpretation with radiology: I have reviewed the radiologist's reading. Discharge Plan Discharge Clinical Impression: Bronchitis Patient Disposition: Home, Self-Care Instructions: Acute Bronchitis (ED) Additional Instructions: Take antibiotic and cough drops as prescribed Follow up with your PCP if not better Prescriptions: New benzonatate 200 mg capsule 200 mg PO TID PRN (Reason: cough) Qty: 20 0RF cefuroxime axetil 500 mg tablet 500 mg PO BID 7 Days Qty: 14 0RF No Action gabapentin 100 mg capsule 100 mg PO TID Qty: 90 5RF celecoxib 200 mg capsule 200 mg PO BID Qty: 60 0RF calcium carbonate 600 mg calcium (1,500 mg) tablet 600 mg PO DAILY metformin 500 mg tablet 500 mg PO BID olanzapine 5 mg tablet 5 mg PO BEDTIME zolpidem 12.5 mg tablet,ext release multiphase 12.5 mg PO BEDTIME cholecalciferol (vitamin D3) 50 mcg (2,000 unit) capsule 50 mcg PO DAILY (DME) blood-glucose meter [FreeStyle [place] Lite] Kit See Rx Instructions .ROUTE TID Qty: 1 Rx Instructions: As directed (DME) FreeStyle Lite Strips Strip See Rx Instructions .ROUTE TID Qty: 10 Rx Instructions: As directed alcohol swabs [Alcohol Prep Pads] Pads, Medicated 0 pad topical (DME) lancets [TRUEplus Lancets] 33 gauge misc See Rx Instructions .ROUTE TID Qty: 100 Rx Instructions: As directed topiramate 100 mg tablet 100 mg PO DAILY clonazepam 1 mg tablet 1 mg PO TID PRN sumatriptan succinate 50 mg tablet 50 mg PO Q6H PRN (Reason: migraine) sertraline 100 mg tablet 200 mg PO QAM omeprazole 20 mg capsule,delayed release(DR/EC) 20 mg PO DAILY buspirone 15 mg tablet 15 mg PO BID naproxen 500 mg tablet 500 mg PO BID Qty: 30 1RF Interventions: ED Discharge Assessment Last Done: 06/10/24 22:28 Discharge Date/Time: 06/10/24 22:28 Print Language: French
[2024-06-10 18:37] LABS: Influenza A PCR NEGATIVE (Negative); Influenza B PCR NEGATIVE (Negative); Resp Syncy Virus RNA Qual PCR NEGATIVE (Negative); SARS COV2 PCR INHOUSE NEGATIVE (Negative)
[2024-06-10 21:13] VITALS: BP 151/76; PULSE 87; RESP 20; TEMP 36.9; O2SAT 97
[2024-06-10 22:13] VITALS: BP 148/74; PULSE 88; RESP 18; TEMP 36.6; O2SAT 98
[2024-06-10] MEDS: cefuroxime axetiL 500 MG TABLET PO (22:26)
[2024-06-10] MEDS: Benzonatate 100 MG CAPSULE 200 MG PO (22:27)
[2024-06-10 22:28] VITALS: BP 148/74; PULSE 88; RESP 18; TEMP 36.6; O2SAT 98
== END 2024-06-10 22:28 | disposition home or self-care (01) ==
PROVIDERS: Physician Assistant Medical; Emergency Provider Internal Medicine; PCP Internal Medicine Geriatric Medicine
DX: J40 Bronchitis, not specified as acute or chronic (principal); R09.89 Other specified symptoms and signs involving the circulatory and respiratory systems; R05.9 Cough, unspecified; Z03.818 Encounter for observation for suspected exposure to other biological agents ruled out
CPT/HCPCS: 0241U; 71046; 99282; 99283

== ENCOUNTER 2024-09-24 14:32 | Outpatient (REF) | payer MEDICAID, SELFPAY ==
--- OUTSIDE RECORDS SUMMARY | 2024-09-24 16:45 | XMS_ITS | Encounter Summary ---
Author Organization [employer] Address [address] [facility] [address] [place] [address] Care Team Providers Care Sql Ssrs Developer Name Role Phone Name, Eulalio EUCEDA Primary Care Provider [phone] Encounter Details Date Type Department Care Team (Latest Contact Info) Description 09/14/2024 Travel Social History Tobacco Use Types Packs/Day Years Used Date Smoking Tobacco: Never Smokeless Tobacco: Never Housing Stability Answer Date Recorded What is your housing situation today? I have talon sing 09/30/[address] you li ve. Do you have problems with any of the following? None of the above 09/30/2023 Food Insecurity Answer Date Recorded Within the past 12 months, y ou worried that your food would run out before you got money to buy more: Never True 09/30/2023 Within the past 12 months,th e food you bought just didn't last and you didn't have enough money to get more: Never True 08/2023 Transportation Answer Date Recorded In the past 12 months, has l ack of transportation kept you from medical appts, meetings, work or from getting things needed for daily living? Yes, it has kept me from medical appointments or getting medications. 09/30/2023 Utilities Answer Date Recorded In the past 12 months, has t he electric, gas, oil or water company threatened to shut off services in your home? No 09/30/2023 Comments Unknown Sex and Gender Information Value Date Recorded Sex Assigned at Female 05/31/2022 10:18 AM EDT Legal Sex Female 10:18 AM EDT Gender Identity Choose not to disclose 10:18 AM EDT Sexual Orientation Choose not to disclose 2021 10:18 AM EDT documented as of this encounter Plan of Treatment Not on file documented as of this encounter Visit Diagnoses Not on filedocumented in this encounter Care Teams Sql Ssrs Developer Relationship Specialty Start Date End Date Name, MD Eulalio [address] [place] [address] PCP - General Family Medicine 12/18/21 documented as of this encounter
--- OUTSIDE RECORDS SUMMARY | 2024-09-24 16:45 | XMS_ITS | Encounter Summary ---
Author Organization [email or web address] Address [address] [facility] [address] [place] [address] Care Team Providers Care Retail Management Trainee Name Role Phone Name, Eulalio EUCEDA Primary Care Provider [phone] Encounter Details Date Type Department Care Team (Late st Contact Info) Description 09/14/2024 1:15 PM EST Immunization [facility] [address] [place], [place] [id number] Eliane Andersen LPN Encounter for immunization Social History Tobacco Use Types Packs/Day Years Used Date Smoking Tobacco: Never Smokeless Tobacco: Never Housing Stability Answer Date Recorded What is your housing situation today? I have talon john 09/30/[address] you li [...] AM EDT documented as of this encounter Progress Notes * Eliane Andersen LPN - 09/14/2024 1:15 PM EST Subjective Patient ID: Jannet Quintero is a 59 y.o. adult who presents here to receive Fluarix Trivalent, Preservative-Free, [id number] seasonal Influenza vaccine. Pt's Influenza Intake form, and guardian reporting, indicated no contraindication to vaccination. Pt educated as to potential side effects of vaccine including fever, muscle aches & headache. Pt tolerated injection well and monitored for 15 minutes post injection. Pt here for [id number] PassKit Roland PassKit, 12 yr+, vaccine. Pt questionnaire indicates that ptis eligible to receive vaccine. Pt denies allergies to vaccine components. Pt educated as to signs/symptoms of Covid infection and potential side effects of vaccination including low grade fevers, intermittent chills, fatigue, body aches and swelling/redness/pain at injection site. Pt informed of benefits of adequate hydration post vaccinations. Pt tolerated injection well and monitored for 15 minutes documented in this encounter Plan of Treatment Not on file documented as of this encounter Visit Diagnoses Diagnosis Encounter for immunization documented in this encounter Care Teams Retail Management Trainee Relationship Specialty Start Date End Date Name, MD Eulalio [address] [place] [id number] PCP - General Family Medicine 12/18/21 documented as of this encounter
--- OUTSIDE RECORDS SUMMARY | 2024-09-24 16:45 | XMS_ITS | Encounter Summary ---
Author Organization [employer] Address [address] [facility] [address] [place] [address] Care Team Providers Care Trimming Press Operator Name Role Phone Name, Eulalio EUCEDA Primary Care Provider [phone] Encounter Details Date Type Department Care Team (Latest Contact Info) Description 08/23/2019 Abstract [facility] CONVERSIONS Dental, Provider, DDS Social History Tobacco Use Types Packs/Day Years Used Date Smoking Tobacco: Never Assessed Comments Unknown Sex and Gender Information Value [...] on filedocumented in this encounter Care Teams Trimming Press Operator Relationship Specialty Start Date End Date Name, MD Eulalio [address] [place] [address] PCP - General Family Medicine 12/18/21 documented as of this encounter
--- OUTSIDE RECORDS SUMMARY | 2024-09-24 16:45 | XMS_ITS | Encounter Summary ---
Author Organization [employer] Address [address] [facility] [address] [place] [address] Care Team Providers Care District Ranger Name Role Phone Name, Eulalio EUECDA Primary Care Provider [phone] Encounter Details Date Type Department Care Team (Late st Contact Info) Description 12/23/[address] [facility] [address] [place], [place] [id number] Name, MD Eulalio [address] [place] [address] Social History Tobacco Use Types Packs/Day Years Used Date Smoking Tobacco: Never Smokeless Tobacco: Never Comments Unknown Sex and Gender Information Value Date Recorded Sex Assigned at Female 05/31/2022 10:18 AM EDT Legal Sex Female 10:18 AM EDT Gender Identity Choose not to disclose 10:18 AM EDT Sexual Orientation Choose not to disclose 2021 10:18 AM EDT documented as of this encounter Plan of Treatment Not on file documented as of this encounter Procedures Procedure Name Priority Date/Time Associated Diagnosis Comments COLONOSCOPY Routine 04/27/2016 11:23 AM EDT documented in this encounter Results * Hm Colonoscopy (04/27/2016 11:23 AM EDT) Colonoscopy Normal Normal Narrative Dione Jennings - 04/27/2016 11:23 AM EDT Recommended 10 year follow up Historical Provider HEALTH MAINTENANCE Final Result documented in this encounter Visit Diagnoses Not on filedocumented in this encounter Care Teams District Ranger Relationship Specialty Start Date End Date Name, MD Eulalio [address] [place] [address] PCP - General Family Medicine 12/18/21 documented as of this encounter
--- OUTSIDE RECORDS SUMMARY | 2024-09-24 16:46 | XMS_ITS | Encounter Summary ---
Author Organization [employer] Address [address] [facility] [address] [place] [address] Care Team Providers Care Strategy Lead Name Role Phone Name, Eulalio EUCEDA Primary Care Provider [phone] Reason for Visit * Reason Onset Date Comments Appointment Request 08/16/2023 Encounter Details Date Type Department Care Team ([facility] Contact Info) Description 08/16/2023 Telephone [facility] [address] [place], [place] [phone] Name, MD Eulalio [address] [place] [address] Appointment Request Social History Tobacco Use Types Packs/Day Years Used Date Smoking Tobacco: Never Smokeless Tobacco: Never Housing Stability Answer Date Recorded What is your housing situation today? I have housing today, but I am worried about losing housing in the future 06/11/[address] you li ve. Do you have problems with any of the following? None of the above 06/11/2023 Food Insecurity Answer Date Recorded Within the past 12 months, y ou worried that your food would run out before you got money to buy more: Never True 06/11/2023 Within the past 12 months,th e food you bought just didn't last and you didn't have enough money to get more: Never True 06/2023 Transportation Answer Date Recorded In the past 12 months, has l ack of transportation kept you from medical appts, meetings, work or from getting things needed for daily living? No 06/11/2023 Utilities Answer Date Recorded In the past 12 months, has t he electric, gas, oil or water company threatened to shut off services in your home? No 06/11/2023 Comments Unknown Sex and Gender Information Value Date Recorded Sex Assigned at Female 05/31/2022 10:18 AM EDT Legal Sex Female 10:18 AM EDT Gender Identity Choose not to disclose 10:18 AM EDT Sexual Orientation Choose not to disclose 2021 10:18 AM EDT documented as of this encounter Miscellaneous Notes * Telephone Encounter - Kiki Hancockchristine Leonard - 08/16/2023 10:21 AM EST Tc from pt requesting to r/s appt for Physical on 08/16/2023 @ 2:00 pm. Please contact pt @ [phone] documented in this encounter Plan of Treatment Not on file documented as of this encounter Visit Diagnoses Not on filedocumented in this encounter Care Teams Strategy Lead Relationship Specialty Start Date End Date Name, MD Eulalio [address] [place] [id number] PCP - General Family Medicine 12/18/21 documented as of this encounter
--- OUTSIDE RECORDS SUMMARY | 2024-09-24 16:46 | XMS_ITS | Clinical Summary ---
Author Organization [employer] Address [address] [facility] [address] [place] [address] Care Team Providers Care Colorer Machine Name Role Phone Name, Eulalio EUCEDA Primary Care Provider [phone] Allergies Active Allergy Reactions Criticality Noted Date Comments Oxycodone GI intolerance 09/07/2023 Quetiapine Rash Low 09/25/2015 Other reaction(s): Altered Heart Rate Other Reaction(s): ELEVATED HEART RATE, increased heart rate Medications zolpidem CR (Ambien CR) 12.5 MG ER tablet Take 1 tablet by mouth at bed time. Active omeprazole (PriLOSEC) [address] capsule TAKE 1 CAPSULE BY MOUTH EVERY DAY BEFORE A MEAL 2 Active gabapentin (Neurontin) 100 MG capsule Take 100 mg by mouth 3 times daily. 2 Active Blood Pressure kitIndications:El evated BP without diagnosis of hypertension 1 kit 2 times daily. 1 kit 3 Active busPIRone (Buspar) 15 MG tablet Take 15 mg by mouth 2 times daily. 3 Active clonazePAM (KlonoPIN) 1 MG tablet Take 1 tablet by mouth every 12 (twelve) hours. Active FREESTYLE LITE test strip TEST BLOOD SUGAR THREE TIMES DAILY 3 Active sertraline (Zoloft) 100 MG tablet TAKE 2 TABLETS BY MOUTH ONCE DAILY IN THE MORNING 3 Active OLANZapine (ZyPREXA) 5 MG tablet Take 1 tablet by mouth at bedtime. 3 Active ibuprofen 400 MG tablet TAKE 1 TABLET BY MOUTH THREE TIMES DAILY NEEDED FOR FEVER OR FOR PAIN 3 Active metFORMIN (Glucophage) 500 MG tabletIndications :Prediabetes TAKE 1 TABLET BY MOUTH TWICE DAILY IN THE MORNING AND IN THE EVENING WITH MEALS 180 tablet 5 4 Active Alcohol Swabs (Alcohol Prep) 70 % pads USE 1 TO TEST BLOOD SUGAR THREE TIMES DAILY 100 each 11 4 Active Easy Touch Lancets 33G/Twist misc USE 1 TO TEST BLOOD SUGAR THREE TIMES DAILY 100 each 4 Active D3 Super Strength 50 MCG (1999 UT) capsuleIndication s:Vitamin D deficiency TAKE 1 CAPSULE BY MOUTH EVERY DAY 90 capsule 3 4 Active topiramate (Topamax) 100 MG tablet TAKE 1 TABLET BY MOUTH EVERY DAY TO PREVENT MIGRAINE 90 tablet 3 4 Active SUMAtriptan (Imitrex) 50 MG tabletIndications :Migraine without status migrainosus, not intractable, unspecified migraine type TAKE 1 TABLET BY MOUTH EVERY 6 HOURS NEEDED FOR MIGRAINE 9 tablet 5 4 Active Active Problems Problem Noted Date Diagnosed Date Abnormal EKG 10/07/2023 Fibromyalgia 10/07/2023 Hyperlipidemia 10/07/2023 Morbid obesity 10/07/2023 Plantar fasciitis of right foot 10/07/2023 Precordial chest pain 10/07/2023 Type 2 diabetes mellitus with unspecified compli cations 10/07/2023 Right-sided low back pain with right-sided sciat ica 04/21/2023 Assessment & Plan (04/21/2023 3:38 PM EDT): Likely musculoskeletal. Non-focal, normal motor exam without neurological deficits. No back pain red-flags: bowel/bladder incontinence, IVDU, urinary retention, saddle anesthesia, and significant motor deficits. -Recommend ibuprofen prn. -Physical therapy referral 9 -Lifting precaution sand stretching reviewed. -ER precaution discussed. Tremor 04/21/2023 Assessment & Plan (04/27/2023 12:28 PM EDT): PE exam concerning for parkinsonian futures. She is on multiple psych medications. -Will consult with pharmacy to make sure medication list is up to date. -Given severity of tremor with difficulties in gait she is high risk for falls. -Will refer to PT and neurology 04/21/2023. The following information is per clinical pharmacology: The following medications of which patient is filling have a listed RARE (<1% of studied patients) ANNA of tremor: - buspirone - clonazepam - topiramate -Ambien The following medications have a listed infrequent ANNA of tremor: -Gabapentin (1-7% of studied patients) - Sertraline (9% of studied patients) Olanzapine has a listed common ANNA of pseudoparkinsonism (12-14% in studied patients) however patient has been filling this medication since 2019. Ingrown nail of great toe of right foot 04/21/20 23 Assessment & Plan (04/21/2023 3:42 PM EDT): Podiatry referral done 04/21/2023. Hx of cholecystectomy 08/13/2022 Overview (08/13/2022): Around [place] [facility] [place] Prediabetes 06/21/2019 Anxiety 05/01/2018 Migraine 07/29/2015 Fibromyositis 07/29/2015 History of hysterectomy 04/26/2012 Encounters Date Type Department Care Team Description 09/14/2024 1:15 PM EST Immunization [facility] [address] [place] [address] Eliane Andersen LPN Encounter for immunization 09/14/2024 Travel 07/10/2024 Telephone [facility] [address] [place] [address] Abby Tomas MA Chart Prep from Last 3 Months Immunizations Name Administration Dates Next Due Influenza Injectable Quadriv alant Preservative Free IIV4 MDCK 06/06/2019 Influenza injectable quadriv alent IIV4 with preservative 08/13/2022,05/01/2018 Influenza injectable quadriv alent preservative free 07/21/2023,06/16/2021,06/17/2016 Influenza, IIV3, injectable 10/09/2009 Influenza, seasonal, injecta ble, preservative free 09/14/2024 Pfizer Covid-19 Vaccine 12+ 09/14/2024, 3 Rabies, intramuscular 02/17/2019, 019,02/03/2019,01/26,01/12/2014 TD (adult), 2 Lf tetanus tox oid, preservative free, adsorbed 02/28/2006 Td (adult), 5 Lf tetanus tox oid, preservative free, adsorbed 01/12/2014 Tdap 05/01/2018 Zoster, Recombinant 03/24/2021,01/19/2021 Social History Tobacco Use Types Packs/Day Years Used Date Smoking Tobacco: Never Smokeless Tobacco: Never Tobacco Cessation:Counseling Given: Not Answered Housing Stability Answer Date Recorded What is [...] not to disclose 2021 10:18 AM EDT Last Filed Vital Signs Vital Sign Reading Time Taken Comments Blood Pressure 145/86 04/06/2024 2:01 PM EDT Pulse 90 04/06/2024 2:01 PM EDT Temperature 36.8 ??C (98.2 ??F) 12/08/2023 1:03 PM ED T Respiratory Rate 25 04/06/2024 2:01 PM EDT Oxygen Saturation 99% 04/06/2024 2:01 PM EDT Inhaled Oxygen Concentration - - Weight 102 kg (224 lb 6.4 oz) 04/06/2024 2:01 PM EDT Height 160 cm (5' 3 ) 04/06/2024 2:01 PM EDT Body Mass Index 39.75 04/06/2024 2:01 PM EDT Plan of Treatment Health Maintenance Due Date Last Done Comments CT Colonography 1963 Depression Screening 1963 FIT DNA/Cologuard 1963 FIT 1963 FOBT 1963 HIV Screening 1963 Sigmoidoscopy 1963 Diabetes: Foot Exam 1973 Alcohol/Substance Use Screening 1975 Diabetes: Urine Protein Screening 1982 Pneumococcal Vaccine: 50+ Years (1 of 2 - PCV) 1982 Lipid Panel 01/14/2023 01/14/2022, 10/31/2020 Mammogram 01/22/2024 01/21/2022, 06/22/2019 SDOH Screening 09/29/2024 09/30/2023 Diabetes: Hemoglobin A1C 10/04/2024 024, 03/09/2021, 10/31/2020 Tobacco Screening 04/06/2025 04/06/2024 Eye Exam 12/26/2025 12/27/2023, 11/30, 12/27/2023, Additional history exists Colonoscopy 04/27/2026 04/27/2016 Colorectal Cancer Screening 04/27/2026 Cervical Cancer Screening 09/24/2026 HPV/Cotest 09/24/2026 09/24/2021 Pap Smear 09/24/2026 09/24/2021 DTaP/Tdap/Td Vaccines (2 - Td or Tdap) 05/01/2028 05/01/2018, 01/12/2014, 02/28/2006 RSV Patients and Patients Aged 60 years or older (1 - 1-dose 75+ series) 2038 Hepatitis C Screening Completed 10/31/2020 Zoster Vaccines Completed 03/24/2021, 01/19/2021 COVID-19 Vaccine Completed 09/14/2024, , 08/27/2021, Additional history exists Influenza Vaccine Completed 09/14/2024, , 08/13/2022, Additional history exists HIB Vaccines Aged Out No longer eligi ble based on patient's age to complete this topic HPV Vaccines Aged Out No longer eligi ble based on patient's age to complete this topic Hepatitis A Vaccines Aged Out No long er eligible based on patient's age to complete this topic Hepatitis B Vaccines Aged Out No long er eligible based on patient's age to complete this topic IPV Vaccines Aged Out No longer eligi ble based on patient's age to complete this topic Meningococcal Vaccine Aged Out No edna nell eligible based on patient's age to complete this topic RSV under 20 months Aged Out No longe r eligible based on patient's age to complete this topic Rotavirus Vaccines Aged Out No longer eligible based on patient's age to complete this topic Procedures Procedure Name Priority Date/Time Associated Diagnosis Comments POCT GLYCATED HEMOGLOBIN, TOTAL Routine 04/06/2024 2:43 PM EDT Type 2 diabetes mellitus with unspecified complications (CMS/HCC) MAMMOGRAM GENERIC Routine 01/21/2022 1:4 2 PM EDT LIPID PANEL, STANDARD Routine 01/14/2022 11:51 AM EDT THINPREP IMAGING PAP AND HPV MRNA E6/E7 WITH REFLEX TO HPV 16,18/45 Routine 09/24/2021 12:00 AM EST [facility]ZZ HISTORICAL HEPATITIS C AB W/REFL TO HCV RNA, QN, PCR Routine 10/31/2020 1:02 PM EDT HM COLONOSCOPY Routine 04/27/2016 11:23 AM EDT from Last 3 Months or Most Recently Relevant to Health Maintenance Results * POCT HGB A1C (04/06/2024 2:43 PM EDT) Hemoglobin A1C 6.0 4.0 - 6.0 % QC Media Lot # [id number] Lot# Expiration Date 975 Blood 04/06/2024 2:43 PM EDT us Eulalio Name POINT OF CARE TEST ENTER/EDIT OR DERABLES Final Result * Mammography Report 1 (01/21/2022 1:42 PM EDT) Anatomical Region Laterality Modality Breast Bilateral Mammography 01/21/2022 1:42 PM EDT Narrative 02/03/2022 4:15 PM EDT Refer to the Notes tab for result details [facility] Procedure: Mammography Report 1 Procedure Note Provider, Jian, - 10/24/2022 Refer to the Notes tab for result details [facility] Procedure: Mammography Report 1 us Eulalio Kunz MD IMG BI PROCEDURES Final Result * LIPID PANEL, STANDARD (01/14/2022 11:51 AM EDT) Chol/HDLC Ratio 2.1 <5.0 (calc) [facility] Cholesterol, Total 126 <200 mg/dL [facility] HDL Cholesterol 59 > OR = 50 mg/dL [facility] LDL Cholesterol 47 mg/dL (calc) [facility] Comment: Reference range: <100 ?? Desirable range <100 mg/dL for primary prevention; ?? <70 mg/dL for patients with CHD or diabetic patients ?? with > or = 2 CHD risk factors. ?? LDL-C is now calculated using the Harshal-Crow ?? calculation, which is a validated novel method providing ?? better accuracy than the Friedewald equation in the ?? estimation of LDL-C. ?? Harshal SS et al. ANURAG. 2013;310(19): 1786-5010 ?? (http://education.[employer].IntellinX/faq/QPO319) Non-HDL Cholesterol 67 <130 mg/dL (calc) [facility] Comment: For patients with diabetes plus 1 major ASCVD risk ?? factor, treating to a non-HDL-C goal of <100 mg/dL ?? (LDL-C of <70 mg/dL) is considered a therapeutic ?? option. Triglycerides 117 <150 mg/dL [facility] 01/14/2022 11:5 1 AM EDT us Eulalio Kunz MD LAB BLOOD ORDERABLES Final Resul t [facility] [address] [place] [address], * THINPREP TIS PAP AND HPV mRNA E6/E7 WITH REFLEX TO HPV 16,18/45 (09/24/2021 12:00 AM EST) Clinical Information: None given [facility] COMMENT SEE COMMENT [facility] Comment: EXPLANATORY NOTE: ? The Pap is a screening test for cervical cancer. It is ?? not a diagnostic test and is subject to false negative ?? and false positive results. It is most reliable when a ?? satisfactory sample, regularly obtained, is submitted ?? with relevant clinical findings and history, and when ?? the Pap result is evaluated along with historic and ?? current clinical information. ?? COMMENT: This Pap test has been evaluated with computer assisted technology. [facility] Shop Welder: SEE COMMENT [facility] Comment: KN, CT(ASCP) CT screening location: [address] ??[id number] HPV nRNA E6/E7 Not Detected Not Detected [facility] Comment: Methodology: Staff Development Manager-Mediated Amplification This assay detects E6/E7 viral messenger RNA (mRNA) from 14 high-risk HPV types (16,18,31,33,35,39,45,51,52,56,58,59,66,68). ? The analytical performance characteristics of this assay have been determined by [employer]. The modifications have not been cleared or approved by the FDA. This assay has been validated pursuant to the CLIA regulations and is used for clinical purposes. ?? For additional information, please refer to http://education.ACSIAN/faq/LKM299b5 (This link if provided for information/ educational purposes only.) Interpretation/Re sult: Negative for intraepithelial lesion or malignancy. [facility] LMP: NONE GIVEN [facility] Prev. BX: NONE [facility]IV[facility] Prev. PAP: NONE [facility]IV[facility] SOURCE: None given [facility] Statement Of Adequacy: SEE COMMENT [facility] Comment: Satisfactory for evaluation. Endocervical/transformation zone component present. Age and/or menstrual status not provided Partially obscuring inflammation 09/24/2021 Mirna Miranda HOUSE WIRER HELPER LAB PATHOLOGY ORDERABLES Final Result [facility] [address] * HEPATITIS C AB W/REFL TO HCV RNA, QN, PCR (10/31/2020 1:02 PM EDT) HEPATITIS C ANTIBODY NON-REACT SHERLEY NON-REACT SHERLEY [facility] INDEX 0.03 <1.00 [facility] Comment: ?? HCV antibody was non-reactive. There is no laboratory ?? evidence of HCV infection. ?? In most cases, no further action is required. However, if recent HCV exposure is suspected, a test for HCV RNA (test code 50099) is suggested. ?? For additional information please refer to http://[employer].ACSIAN/faq/XRD96z0 (This link is being provided for informational/ educational purposes only.) ?? 10/31/2020 1:02 PM EDT Historical Provider HISTORICAL/NON ORDERABLE LABS Final Result [facility] [address] * Hm Colonoscopy (04/27/2016 11:23 AM EDT) Colonoscopy Normal Normal Narrative Dione Jennings - 04/27/2016 11:23 AM EDT Recommended 10 year follow up Historical Provider HEALTH MAINTENANCE Final Result from Last 3 Months or Most Recently Relevant to Health Maintenance Insurance [facility] C3 Care Teams Colorer Machine Relationship Specialty Start Date End Date Name, MD Eulalio [address] [place] [address] PCP - General Family Medicine 12/18/21
== END 2024-09-24 14:33 | disposition home or self-care (01) ==
LOC: HO.MAMMO 14:32
PROVIDERS: PCP Internal Medicine Geriatric Medicine; Visit Provider Internal Medicine Geriatric Medicine
DX: Z12.31 Encounter for screening mammogram for malignant neoplasm of breast (principal)
CPT/HCPCS: 77063; 77067

== ENCOUNTER → 2024-09-24 14:45 | Outpatient (BNV) | payer MEDICAID, SELFPAY | PROVIDERS: PCP Internal Medicine Geriatric Medicine; Visit Provider Internal Medicine | DX: Z12.31 Encounter for screening mammogram for malignant neoplasm of breast (principal) | CPT/HCPCS: 77063; 77067 ==

== ENCOUNTER 2025-03-31 13:30 | Emergency (ER) | payer MEDICAID, SELFPAY ==
--- NOTE | ~2025-03-31 | XR_ITS ---
CLINICAL HISTORY: right sided pain 2 view chest x-ray Comparison: CR/SR - XR CHEST 2 VIEWS - 06/10/24 18:00 EST CR/SR - XR CHEST 2 VIEWS - 09/07/23 15:36 EST Findings: The lungs are clear. Normal size heart. No acute fracture. IMPRESSION: 1. No acute findings. This document has been electronically signed by: Barbara Shah MD on 03/31/2025 15:10:31
[2025-03-31 13:55] VITALS: BP 165/68; PULSE 73; RESP 18; TEMP 36.7; O2SAT 94; BMI 38.6
--- NOTE | 2025-03-31 14:28 | ED.ABDPAIN ---
HPI - Abdominal Pain General Chief Complaint: Abdominal Pain Stated Complaint: R sided pain, hurts when breathing Time Seen by Provider: 03/31/25 18:03 Source: patient Mode of arrival: ambulatory Limitations: no limitations History of Present Illness ED Provider: Dr. Mcfarlane HPI narrative: This is a 60-year-old female history of diabetes presented hospital today for right lower rib pain after a fall. Patient stated that she unintentionally fell at the trying to go to the bathroom. She landed on her right side. Since then she has been having right lower rib pain. It is tender when she takes a deep breath in and out. Denies any abdominal pain denies any nausea or vomiting. Denies any shortness of breath. Related Data Home Medications ?Medication ?Instructions ?Recorded ?Confirmed calcium carbonate 600 mg PO DAILY 08/15/20 12/24/22 metformin 500 mg tablet 500 mg PO BID 09/07/21 12/24/22 olanzapine 5 mg tablet 5 mg PO BEDTIME 09/07/21 12/24/22 alcohol swabs (Alcohol Prep Pads) 0 pad topical 12/23/21 12/24/22 blood sugar diagnostic (FreeStyle #10 ea 12/23/21 12/24/22 Lite Strips) blood-glucose meter (FreeStyle #1 ea 12/23/21 12/24/22 [place] Lite kit) cholecalciferol (vitamin D3) 50 50 mcg PO DAILY 12/23/21 12/24/22 mcg (2,000 unit) capsule clonazepam 1 mg tablet 1 mg PO TID PRN 12/23/21 12/24/22 lancets 33 gauge (TRUEplus Lancets) #100 ea 12/23/21 12/24/22 topiramate 100 mg tablet 100 mg PO DAILY migraine 12/23/21 12/24/22 zolpidem 12.5 mg tablet,extended 12.5 mg PO BEDTIME 12/23/21 12/24/22 release,multiphase buspirone 15 mg tablet 15 mg PO BID 08/25/23 omeprazole 20 mg capsule,delayed 20 mg PO DAILY 08/25/23 release sertraline 100 mg tablet 200 mg PO QAM 08/25/23 sumatriptan succinate 50 mg tablet 50 mg PO Q6H PRN migraine 08/25/23 Previous Rx's ?Medication ?Instructions ?Recorded gabapentin 100 mg capsule 100 mg PO TID #90 caps 02/08/23 naproxen 500 mg tablet 500 mg PO BID #30 tabs 08/25/23 benzonatate 200 mg capsule 200 mg PO TID PRN cough #20 caps 06/10/24 cefuroxime axetil 500 mg tablet 500 mg PO BID 7 days #14 tabs 06/10/24 celecoxib 200 mg capsule 200 mg PO BID #60 caps 06/12/24 acetaminophen 500 mg tablet 1,000 mg (2 x 500 mg) PO Q8H 7 03/31/25 (Tylenol Extra Strength) days #42 tabs ibuprofen 400 mg tablet 400 mg PO Q8H 10 days #30 tabs 03/31/25 lidocaine 4 % topical patch 1 patch topical DAILY PRN pain #10 03/31/25 ea oxycodone 5 mg capsule 5 mg PO Q8H PRN pain 4 days #12 03/31/25 caps Allergies Allergy/AdvReac Type Severity Reaction Status Date / Time quetiapine (From SEROQUEL) Allergy Unknown ELEVATED Verified 03/31/25 13:57 HEART RATE, increased heart rate oxycodone (From OxyContin) Allergy Gastrointestinal Verified 03/31/25 13:57 Upset Review of Systems Review of Systems Pertinent review of systems as mentioned in HPI. All other system otherwise negative. [facility] Past Medical History [facility] Narrative: Medical history as mentioned in HPI Medical History Morbid obesity Other and unspecified hyperlipidemia Abnormal EKG Precordial chest pain Type 2 diabetes mellitus with unspecified complications Chronic pain Palpitation Fibromyalgia Surgical History Hx of hysterectomy Hx of cholecystectomy Family History Family History Other Family history not known due to adoption Social History Social History Household Members: Children Housing: Apartment Alcohol intake: current Alcohol intake frequency: a few times a week Patient Tobacco Use Status: Never used Tobacco Smoked in Last 30 Days: No Use of substances other than those prescribed or required for medical reasons: No Advance Directives: No Advance Directives Information Provided: Yes Patient : No service: No Current occupational status: disabled Physical Exam ED Exam Exam: General: Pleasant, no distress, interacting appropriately Head: Normacephalic, atraumatic ENT: oral mucosa moist, neck supple, no tracheal deviation Cardiovascular: regular rate, regular rhythm, no murmurs, rubbing, gallops, right lower rib pain on palpation reproducible on exam Respiratory: CTAB, no wheeze, rales, rhonchi Gastrointestinal: Soft, non distended, non tender, non guarding, no acute surgical abdomen on exam Neurological: Awake and alert, no facial droop noted Skin: Warm and dry Psychiatric: Appropriate mood and thoughts Vital Signs: Vital Signs - 24 hr 03/31/25 13:55 03/31/25 17:32 03/31/25 19:16 Temperature 98.0 F 98.6 F 98.8 F Pulse Rate 73 64 61 Respiratory Rate 18 18 16 Blood Pressure 165/68 H 160/76 H 150/59 H Pulse Oximetry 94 98 97 Oxygen Delivery Method Room Air Room Air Room Air BMI result Body Mass Index 38.6 Course Course Course Narrative: This is a Rapid Medical Examination (RME) performed by Danielle Bruce PA-C in triage. Full HPI, ROS, assessment and treatment plan per primary provider in the Main ED. Hx: 60 yo F here for eval of right sided rib pain worse w/ deep breathing. reports recent fall however this occurred after pain started. no cough, fever, n/v. Plan: labs, ekg, cxr Medical Decision Making Medical Decision Making [facility] Narrative: 60-year-old female presented hospital today for right lower rib pain after a fall. I suspect patient likely has a rib contusion versus a rib fracture in her lower right ribs. Her presentation is consistent with rib pathologies. I did perform bedside fast ultrasound. No signs of free fluid in the right upper quadrant left upper quadrant or suprapubic area. Low suspicion for a liver laceration she has no abdominal tenderness on palpation. Patient's chest x-ray did not show any signs of pneumothorax no signs of obvious rib fractures. We will plan to give patient some ibuprofen here, lidocaine patch, and a dose of p.o. oxycodone. Reassessment the patient stated her pain is improved. I did reassess her abdomen. No tenderness in the right upper quadrant area no tenderness of right lower quadrant. I have low suspicion for intra-abdominal pathologies for the patient. We will plan to discharge patient at this time central spirometer will be given. Prescription for Lidocaine patch, ibuprofen and p.o. Tylenol and p.o. oxycodone will be given Differential Diagnosis Differential Diagnoses: The differential diagnosis associated with the presentation includes Rib fractures, rib contusion, liver laceration, pneumonia, pneumothorax Lab Data MDM Lab Attestation statement: I reviewed the patient's lab results. 03/31/25 14:24 03/31/25 14:24 Labs: Lab Results 03/31/25 03/31/25 Range/Units 14:24 14:47 WBC 10.5 (4.8-10.8) X10*3/uL RBC 4.23 (4.20-5.50) X10*6/uL Hgb 12.4 (12.0-16.0) g/dl Hct 37.7 (37.0-47.0) % MCV 89.1 (80.0-98.0) fL MCH 29.3 (27.0-33.0) pg MCHC 32.9 (31.0-35.0) g/dl RDW 13.6 (11.0-16.0) % Plt Count 218 (160-400) X10*3/uL MPV 9.7 (9.4-12.3) fL Immature Gran % (Auto) 0.4 (0.0-0.4) % Neut % (Auto) 65.1 (45-73) % Lymph % (Auto) 24.4 (20-40) % [place] % (Auto) 8.0 (2-11) % Eos % (Auto) 1.4 (0-4) % Baso % (Auto) 0.7 (0-2) % Lymph # (Auto) 2.6 (1.2-4.9) X10*3/uL [place] # (Auto) 0.8 (0.1-1.2) X10*3/uL Eos # (Auto) 0.2 (0.0-0.4) X10*3/uL Baso # (Auto) 0.1 (0.0-0.2) X10*3/uL Abs Immat Gran (auto) 0.04 H (0.00-0.03) X10*3/uL Absolute Neuts (auto) 6.8 (2.0-8.3) x10*3/uL Absolute Nucleated RBC 0.000 (0.0-0.012) X10*3/uL Nucleated RBC % (auto) 0.0 (0.0-0.2) /100WBC Sodium 143 (135-145) mmol/L Potassium 3.7 (3.3-5.1) mmol/L Chloride 112 H (96-108) mmol/L Carbon Dioxide 21 L (22-29) mmol/L Anion Gap 14 (12-20) BUN 11 (9-16) mg/dL Creatinine 0.79 (0.5-1.4) mg/dL Estim Creat Clear Calc 82.7 Estimated GFR > 60 Random Glucose 117 H (60-115) mg/dL Calcium 8.9 (8.4-10.2) mg/dL Total Bilirubin 0.2 (0.0-1.0) mg/dL AST 23 (5-31) U/L ALT 21 (0-31) U/L Alkaline Phosphatase 64 (39-117) U/L Troponin I High Sens < 2.7 (<3.5-17.0) ng/L Total Protein 7.2 (6.5-8.0) g/dL Albumin 4.0 (3.5-5.0) g/dL Lipase 37 (8-78) U/L Independent Interpretation I performed an independent interpretation of an: Plain X-Ray Radiology Impression Discussion of test interpretation with radiology: I have reviewed the radiologist's reading. Prescription Management I considered prescription management with: Pain Medication Medications Administered Discontinued Medications Generic Name Dose Route Start Last Admin Trade Name Lyndon PRN Reason Stop Dose Admin Ibuprofen 400 mg 03/31/25 18:11 03/31/25 18:42 Ibuprofen 400 Mg Tablet PO 03/31/25 18:12 400 mg ONCE ONE Administration Lidocaine 1 patch 03/31/25 18:11 03/31/25 18:42 Lidocaine 4 % Patch Adh..Patch TRANSDERMA 03/31/25 18:12 1 patch ONCE ONE Administration Protocol Oxycodone HCl 5 mg 03/31/25 18:11 03/31/25 18:42 Oxycodone Hcl Immed Release 5 Mg Tablet PO 03/31/25 18:12 5 mg ONCE ONE Administration Discharge Plan Discharge Clinical Impression: Contusion of rib on right side Qualifiers: Encounter type: initial encounter Qualified Code(s): S29.8XXA - Other specified injuries of thorax, initial encounter Patient Disposition: Home, Self-Care Prescriptions: New lidocaine 4 % adhesive patch,medicated 1 patch topical DAILY PRN (Reason: pain) Qty: 10 0RF acetaminophen [Tylenol Extra Strength] 500 mg tablet 1,000 mg PO Q8H 7 Days Qty: 42 0RF oxycodone 5 mg capsule 5 mg PO Q8H PRN (Reason: pain) 4 Days Qty: 12 0RF Rx Instructions: Partial Fill upon patient request. ibuprofen 400 mg tablet 400 mg PO Q8H 10 Days Qty: 30 0RF No Action gabapentin 100 mg capsule 100 mg PO TID Qty: 90 5RF celecoxib 200 mg capsule 200 mg PO BID Qty: 60 0RF benzonatate 200 mg capsule 200 mg PO TID PRN (Reason: cough) Qty: 20 0RF cefuroxime axetil 500 mg tablet 500 mg PO BID 7 Days Qty: 14 0RF calcium carbonate 600 mg calcium (1,500 mg) tablet 600 mg PO DAILY metformin 500 mg tablet 500 mg PO BID olanzapine 5 mg tablet 5 mg PO BEDTIME zolpidem 12.5 mg tablet,ext release multiphase 12.5 mg PO BEDTIME cholecalciferol (vitamin D3) 50 mcg (2,000 unit) capsule 50 mcg PO DAILY (DME) blood-glucose meter [FreeStyle [place] Lite] Kit See Rx Instructions .ROUTE TID Qty: 1 Rx Instructions: As directed (DME) FreeStyle Lite Strips Strip See Rx Instructions .ROUTE TID Qty: 10 Rx Instructions: As directed alcohol swabs [Alcohol Prep Pads] Pads, Medicated 0 pad topical (DME) lancets [TRUEplus Lancets] 33 gauge misc See Rx Instructions .ROUTE TID Qty: 100 Rx Instructions: As directed topiramate 100 mg tablet 100 mg PO DAILY clonazepam 1 mg tablet 1 mg PO TID PRN sumatriptan succinate 50 mg tablet 50 mg PO Q6H PRN (Reason: migraine) sertraline 100 mg tablet 200 mg PO QAM omeprazole 20 mg capsule,delayed release(DR/EC) 20 mg PO DAILY buspirone 15 mg tablet 15 mg PO BID naproxen 500 mg tablet 500 mg PO BID Qty: 30 1RF Print Language: Ivorian
--- NOTE | 2025-03-31 14:29 | ECG_ITS ---
Test Reason : RIB PAIN Blood Pressure : */* mmHG Vent. Rate : 69 BPM Atrial Rate : 69 BPM P-R Int : 140 ms QRS Dur : 86 ms QT Int : 420 ms P-R-T Axes : 34 39 -41 degrees QTcB Int : 450 ms Normal sinus rhythm ST & T wave abnormality, consider inferior ischemia ST & T wave abnormality, consider anterolateral ischemia Abnormal ECG When compared with ECG of 07-Sep-2023 14:56, No significant change was found Referred By: Anabel Bruce Electronically Signed By: ROGER SIMPSON MD
[2025-03-31 14:32] LABS: MANUAL DIFF FLAG NO
[2025-03-31 14:33] LABS: Hematocrit 37.7 % (37.0-47.0); Hemoglobin 12.4 g/dl (12.0-16.0); Imm Gran Abs Auto 0.04 X10*3/uL (0.00-0.03); Imm Gran Pct Auto 0.4 % (0.0-0.4); Lymphocytes Absolute Auto 2.6 X10*3/uL (1.2-4.9); Mean Corpuscular HGB Conc 32.9 g/dl (31.0-35.0); Mean Corpuscular Hemoglobin 29.3 pg (27.0-33.0); Mean Corpuscular Volume 89.1 fL (80.0-98.0); NRBC Abs Auto 0.000 X10*3/uL (0.0-0.012); NRBC Pct Auto 0.0 /100WBC (0.0-0.2); Platelet Count 218 X10*3/uL (160-400); Red Blood Count 4.23 X10*6/uL (4.20-5.50); White Blood Count 10.5 X10*3/uL (4.8-10.8)
[2025-03-31 14:46] LABS: Alanine Aminotransferase 21 U/L (0-31); Albumin Level 4.0 g/dL (3.5-5.0); Alkaline Phosphatase 64 U/L (39-117); Anion Gap 14 (12-20); Aspartate Amino Transferase 23 U/L (5-31); Blood Urea Nitrogen 11 mg/dL (9-16); Calcium 8.9 mg/dL (8.4-10.2); Carbon Dioxide 21 mmol/L (22-29); Chloride 112 mmol/L (96-108); Creatinine Clr Calc Pharmacy 82.7; Estimated Glomerular Filt Rate > 60; Lipase 37 U/L (8-78); Potassium 3.7 mmol/L (3.3-5.1); Sodium 143 mmol/L (135-145); Total Protein 7.2 g/dL (6.5-8.0)
--- OUTSIDE RECORDS SUMMARY | 2025-03-31 14:55 | XMS_ITS | Encounter Summary ---
Author Organization [employer] Address [address] [place] [address] Care Team Providers Care Rail Switch Operator Name Role Phone Name, Eulalio EUCEDA Primary Care Provider [phone] Encounter Details Date Type Department Care Team ([facility] Contact Info) Description 03/31/2025 Orders Only GENERIC EXTERNAL DATA DEPARTMENT Provider, Generic External Data Social History Tobacco Use Types Packs/Day Years Used Date Smoking Tobacco: Never Smokeless Tobacco: Never Depression Answer Date Recorded Patient Health Questionnaire-9 Score 7 03/12/2025 Patient Health Questionnaire-9 Score 7 03/12/2025 Last PHQ-9: Questionnaire Data Not on file 0 03/12/2025 Housing Stability Answer Date Recorded What is your housing situation today? I have talon alvaro 03/05/[address] you li ve. Do you have problems with any of the following? None of the above 03/05/2025 Food Insecurity Answer Date Recorded Within the past 12 months, y ou worried that your food would run out before you got money to buy more: Never True 03/05/2025 Within the past 12 months,th e food you bought just didn't last and you didn't have enough money to get more: Never True 11/2024 Transportation Answer Date Recorded In the past 12 months, has l ack of transportation kept you from medical appts, meetings, work or from getting things needed for daily living? No 03/05/2025 Utilities Answer Date Recorded In the past 12 months, has t he electric, gas, oil or water company threatened to shut off services in your home? No 03/05/2025 Depression Answer Date Recorded Patient Health Questionnaire-2 Score 2 03/12/2025 Internet Access Answer Date Recorded Internet Access Q1 Yes 03/05/2025 Internet Access Q2 Not on file 03/05/2025 Comments Unknown Sex and Gender Information Value Date Recorded Sex Assigned at Female 05/31/2022 10:18 AM EDT Legal Sex Female 10:18 AM EDT Gender Identity Female 02/18/2025 1:44 PM EDT Sexual Orientation Choose not to disclose 2021 10:18 AM EDT documented as of this encounter Plan of Treatment Upcoming Encounters Date Type Department Care Team (Late st Contact Info) Description 05/20/2025 2:30 PM EDT Office Visit [facility] [address] [place] [address] Name, MD Eulalio [address] [place] [address] 08/09/2025 2:30 PM EST Office Visit [facility] [address] [place], [place] [phone] Eliceo, Megan, OD [address] [place] [address] documented as of this encounter Procedures Procedure Name Priority Date/Time Associated Diagnosis Comments CBC WITH AUTO DIFFERENTIAL Routine 03/31/2025 2:24 PM EDT LIPASE Routine 03/31/2025 2:24 PM EDT COMPREHENSIVE METABOLIC PANEL Routine 03/31/2025 2:24 PM EDT documented in this encounter Results * Lipase (03/31/2025 2:24 PM EDT) Lipase 37 8 - 78 U/L [facility] 03/31/2025 2:24 PM EDT 03/31/2025 2:31 PM EDT us Generic External Data Provider LAB BLOOD ORDERAB LES Final Result [facility] [address] [place] [address] [phone] * (ABNORMAL) Comprehensive Metabolic Panel (03/31/2025 2:24 PM EDT) Sodium 143 135 - 145 mmol/L [facility] Potassium 3.7 3.3 - 5.1 mmol/L [facility] Chloride 112(H) 96 - 108 mmol/L [facility] Carbon Dioxide 21(L) 22 - 29 mmol/L [facility] Anion Gap 14 12 - 20 [facility] Urea Nitrogen (BUN) 11 9 - 16 mg/dL [facility] Creatinine, Serum 0.79 0.5 - 1.4 mg/dL [facility] Creatinine Clr Calc Pharmacy 82.7 [facility] Comment:Provided height and weight: 160.02 cm,98.9 kg.eGFR (calculated from the MDRD study equation) and eCrCl(calculated from the Cockcroft-Gault equation) are based ondifferent parameters and may not yield comparable results.If eCrCl result is absurd, please check patient'sheight/weight. Estimated Glomerular Filt Rate >60 [facility] Comment:Chronic Kidney Disea se: Estimated GFR < 60 mL/min/[id number] Kidney Disease: Estimated GFR < 15 mL/min/1.73m2 Glucose 117(H) 60 - 115 mg/dL [facility] Calcium 8.9 8.4 - 10.2 mg/dL [facility] Bilirubin, Total 0.2 0.0 - 1.0 mg/dL [facility] Aspartate Amino Transferase 23 5 - 31 U/L [facility] Alanine Aminotransferase 21 0 - 31 U/L [facility] Total Protein 7.2 6.5 - 8.0 g/dL [facility] Albumin Level 4.0 3.5 - 5.0 g/dL [facility] Alkaline Phosphatase 64 39 - 117 U/L [facility] 03/31/2025 2:24 PM EDT 03/31/2025 2:31 PM EDT us Generic External Data Provider LAB BLOOD ORDERAB LES Final Result [facility] [address] [place] [address] [phone] * (ABNORMAL) CBC auto differential (03/31/2025 2:24 PM EDT) White Blood Count 10.5 4.8 - 10.8 X10*3/uL [facility] Red Blood Count 4.23 4.20 - 5.50 X10*6/uL [facility] Hemoglobin 12.4 12.0 - 16.0 g/dl [facility] Hematocrit 37.7 37.0 - 47.0 % [facility] Mean Corpuscular Volume 89.1 80.0 - 98.0 fL [facility] Mean Corpuscular Hemoglobin 29.3 27.0 - 33.0 pg [facility] Mean Corpuscular HGB Conc 32.9 31.0 - 35.0 g/dl [facility] Red Cell Distribution Width 13.6 11.0 - 16.0 % [facility] Platelet Count 218 160 - 400 X10*3/uL [facility] Mean Platelet Volume 9.7 9.4 - 12.3 fL [facility] Neutrophils Percent Auto 65.1 45 - 73 % [facility] Imm Gran Pct Auto 0.4 0.0 - 0.4 % [facility] Lymphocytes Percent Auto 24.4 20 - 40 % [facility] Monocytes Percent Auto 8.0 2 - 11 % [facility] Eosinophils Percent Auto 1.4 0 - 4 % [facility] Basophils Percent Auto 0.7 0 - 2 % [facility] NRBC Pct Auto 0.0 0.0 - 0.2 /100WBC [facility] Neutrophils Absolute Auto 6.8 2.0 - 8.3 x10*3/uL [facility] Imm Gran Abs Auto 0.04(H) 0.00 - 0.03 X10*3/uL [facility] Lymphocytes Absolute Auto 2.6 1.2 - 4.9 X10*3/uL [facility] Monocytes Absolute Auto 0.8 0.1 - 1.2 X10*3/uL [facility] Eosinophils Absolute Auto 0.2 0.0 - 0.4 X10*3/uL [facility] Basophils Absolute Auto 0.1 0.0 - 0.2 X10*3/uL [facility] NRBC Abs Auto 0.000 0.0 - 0.012 X10*3/uL [facility] 03/31/2025 2:24 PM EDT 03/31/2025 2:31 PM EDT us Generic External Data Provider LAB BLOOD ORDERAB LES Final Result [facility] [address] [place] [address] [phone] documented in this encounter Visit Diagnoses Not on filedocumented in this encounter Additional Health Concerns Assessment Noted Time PHQ-9 Depression Total Score: 7 03/12/20 25 1:01 PM EDT documented as of this encounter Care Teams Rail Switch Operator Relationship Specialty Start Date End Date Name, MD Eulalio [address] [place] [address] PCP - General Family Medicine 12/18/21 documented as of this encounter
--- OUTSIDE RECORDS SUMMARY | 2025-03-31 14:55 | XMS_ITS | Clinical Summary ---
Author Organization [employer] Address [address] [facility] [address] [place] [address] Care Team Providers Care Bowling Alley Manager Name Role Phone Name, Eulalio EUCEDA Primary Care Provider [phone] Allergies Active Allergy Reactions Criticality Noted Date [...] EVERY DAY BEFORE A MEAL 2 Active Blood Pressure kitIndications:E levated BP without diagnosis of hypertension 1 kit [...] FOR FEVER OR FOR PAIN 3 Active Alcohol Swabs (Alcohol Prep) 70 % pads USE 1 TO TEST BLOOD SUGAR THREE TIMES DAILY 100 each 11 4 Active Easy Touch Lancets 33G/Twist misc USE 1 TO TEST BLOOD SUGAR THREE TIMES DAILY 100 each 11 4 Active D3 Super Strength 50 MCG (1999 UT) capsuleIndicatio ns:Vitamin D deficiency TAKE 1 CAPSULE BY MOUTH EVERY DAY 90 capsule 3 4 Active topiramate (Topamax) 100 MG tablet TAKE 1 TABLET BY MOUTH EVERY DAY TO PREVENT MIGRAINE 90 tablet 3 4 Active SUMAtriptan (Imitrex) 50 MG tabletIndication s:Migraine without status migrainosus, not intractable, unspecified migraine type TAKE 1 TABLET BY MOUTH EVERY 6 HOURS NEEDED FOR MIGRAINE 9 tablet 5 5 Active metFORMIN (Glucophage) 500 MG tabletIndication s:Prediabetes TAKE 1 TABLET BY MOUTH TWICE DAILY IN THE MORNING AND IN THE EVENING WITH MEALS 180 tablet 5 5 Active celecoxib (CeleBREX) 200 MG capsule Take 1 capsule by mouth 2 times daily. 4 Active Acetaminophen Extra Strength 500 MG tablet TAKE 1 TABLET BY MOUTH EVERY 8 HOURS NEEDED FOR PAIN OR FEVER 5 Active gabapentin (Neurontin) 100 MG capsule Take 1 capsule (100 mg) by mouth at bedtime for 3 days, THEN 1 capsule (100 mg) 2 times daily for 3 days, THEN 1 capsule (100 mg) 3 times daily. 99 capsule 2 5 04/17/20 25 Active gabapentin (Neurontin) 100 MG capsule Take 100 mg by mouth 3 times daily. 2 03/12/20 25 Discontinu ed(Therapy completed) Active Problems Problem Noted Date Diagnosed Date Psychosis 03/12/2025 Abnormal EKG 10/07/2023 Fibromyalgia 10/07/2023 Assessment & Plan (02/19/2025 8:07 AM EDT): Pt attended and participated in chronic pain group today - good engagement with group model of care - continue to use combination of non-pharmacological modalities to address pain - followup in one or more weeks Hyperlipidemia 10/07/2023 Morbid obesity 10/07/2023 Plantar fasciitis of right foot 10/07/2023 Right-sided low back pain with right-sided [...] 08/13/2022 Overview (08/13/2022): Around 2019, laparoscopic at [facility] Prediabetes 06/21/2019 Anxiety 05/01/2018 Migraine 07/29/2015 History of hysterectomy 04/26/2012 Resolved Problems Problem Noted Date Diagnosed Date Resolved Date Precordial chest pain 10/07/20232024 Type 2 diabetes mellitus wit h unspecified complications 10/07/2023 03/12/2025 Fibromyositis 07/29/2015 02/18/2025 Encounters Date Type Department Care Team Description 03/31/2025 Orders Only GENERIC EXTERNAL DATA DEPARTMENT Provider, Generic External Data 03/12/2025 1:00 PM EDT Office Visit [facility] [address] [place] [address] Eulalio Kunz MD Pre-diabetes (Primary Dx); Fibromyalgia; Psychosis, unspecified psychosis type ([facility]/HCC); Encounter for immunization 03/12/2025 Travel 03/05/2025 Patient Outreach [facility] [address] [place] [address] Eulalio Kunz MD Pre-visit Planning (SDOH negative, Tobacco screening negative. ) 02/18/2025 11:00 AM EDT Office Visit [facility] [address] [place] [address] Pooja Dugan MD Fibromyalgia (Primary Dx); Dietary counseling; Exercise counseling; Class 2 severe obesity with serious comorbidity and body mass index (BMI) of 39.0 to 39.9 in adult, unspecified obesity type (CMS/HCC) 02/18/2025 Travel from Last 3 Months Immunizations Immunization Administration Dates Next Due Influenza Injectable Quadriv alant Preservative Free IIV4 MDCK 06/06/2019 Influenza injectable quadriv alent IIV4 with preservative 08/13/2022,05/01/2018 Influenza injectable quadriv alent preservative free 07/21/2023,06/16/2021,06/17/2016 Influenza, IIV3, injectable 10/09/2009 Influenza, seasonal, injecta ble, preservative free 09/14/2024 Pfizer Covid-19 Vaccine 12+ 09/14/2024, 3 Pneumococcal Conjugate PCV 20 03/12/2025 Rabies, intramuscular 02/17/2019,2 019,02/03/2019,01/26,01/12/2014 TD (adult), 2 Lf tetanus tox oid, preservative free, adsorbed 02/28/2006 Td (adult), 5 Lf tetanus tox oid, preservative free, adsorbed 01/12/2014 Tdap 05/01/2018 Zoster, Recombinant 03/24/2021,01/19/2021 Social History Tobacco Use Types Packs/Day Years Used Date Smoking Tobacco: Never Smokeless Tobacco: Never Tobacco Cessation:Counseling Given: Not Answered Depression Answer Date Recorded Patient Health Questionnaire-9 Score 7 03/12/2025 Patient Health Questionnaire-9 Score 7 03/12/2025 Last PHQ-9: Questionnaire Data Not on file 0 03/12/2025 Housing Stability Answer Date Recorded What is your housing situation today? I have talon john 03/05/[address] you li [...] Sign Reading Time Taken Comments Blood Pressure 138/72 03/12/2025 12:58 PM EDT Pulse 87 03/12/2025 12:58 PM EDT Temperature 36.6 C (97.8 F) 03/12/2025 12:58 PM EDT Respiratory Rate 14 03/12/2025 12:58 PM EDT Oxygen Saturation 95% 03/12/2025 12:58 PM EDT Inhaled Oxygen Concentration - - Weight 101 kg (222 lb 6.4 oz) 03/12/2025 12:58 P M EDT Height 160 cm (5' 3 ) 03/12/2025 12:58 PM EDT Body Mass Index 39.4 03/12/2025 12:58 PM EDT Plan of Treatment Upcoming Encounters Date Type Department Care Team (Late st Contact Info) Description 05/20/2025 2:30 PM EDT Office Visit [facility] [address] [place], [place] [phone] Name, MD Eulalio [address] [place], [place] [phone] 08/09/2025 2:30 PM EST Office Visit [facility] [address] [place], [place] [phone] Eliceo, Destinee, OD [address] [place], [place] [phone] Health Maintenance Due Date Last Done Comments CT Colonography 1965 FIT DNA/Cologuard 1965 FIT 1965 FOBT 1965 HIV Screening 1965 Sigmoidoscopy 1965 Diabetes: Foot Exam 1973 Diabetes: Urine Protein Screening 1982 Lipid Panel 01/14/2023 01/14/2022, 10/31/2020 Influenza Vaccine (#1) 2025 , 07/21/2023, 08/13/2022, Additional history exists Diabetes: Hemoglobin A1C 09/12/2025 025, 04/06/2024, 03/09/2021, Additional history exists Eye Exam 12/26/2025 12/27/2023, 11/30, 12/27/2023, Additional history exists SDOH Screening 03/05/2026 03/05/2025 Alcohol/Substance Use Screening 03/12/2026 03/12/2025 Depression Screening 03/12/2026 03/12/2025, 03/12/20 25 Disability Screening 03/12/2026 03/12/2025 Tobacco Screening 03/12/2026 03/12/2025 Colonoscopy 04/27/2026 04/27/2016 Colorectal Cancer Screening 04/27/2026 Cervical Cancer Screening 09/24/2026 HPV/Cotest 09/24/2026 09/24/2021 Mammogram 09/24/2026 09/24/2024, 06/2 09/2021, 06/22/2019 Pap Smear 09/24/2026 09/24/2021 DTaP/Tdap/Td Vaccines (2 - Td or Tdap) 05/01/2028 05/01/2018, 01/12/2014, 02/28/2006 RSV Patients and Patients Aged 60 years or older (1 - 1-dose 75+ series) 2038 Hepatitis C Screening Completed 10/31/2020 Zoster Vaccines Completed 03/24/2021, 01/19/2021 COVID-19 Vaccine Completed 09/14/2024, , 08/27/2021, Additional history exists Pneumococcal Vaccine: 50+ Years Completed 03/12/2025 HIB Vaccines Aged Out No longer eligi [...] patient's age to complete this topic Meningococcal B Vaccine Aged Out No l onger eligible based on patient's age to complete [...] Procedure Name Priority Date/Time Associated Diagnosis Comments LIPASE Routine 03/31/2025 2:24 PM EDT COMPREHENSIVE METABOLIC PANEL Routine 03/31/2025 2:24 PM EDT CBC WITH AUTO DIFFERENTIAL Routine 03/31/2025 2:24 PM EDT POCT GLYCATED HEMOGLOBIN, TOTAL Routine 03/12/2025 1:02 PM EDT Pre-diabetes POCT GLUCOSE Routine 03/12/2025 1:00 PM EDT Pre-diabetes BI MAMMOGRAM SCREENING TOMOSYNTHESIS BILATERAL Routine 09/24/2024 2:45 PM EST LIPID PANEL, STANDARD Routine 01/14/2022 11:51 AM EDT THINPREP IMAGING PAP AND HPV MRNA E6/E7 WITH REFLEX TO HPV 16,18/45 Routine 09/24/2021 12:00 AM EST ZZZ HISTORICAL HEPATITIS C AB W/REFL TO HCV RNA, QN, PCR Routine 10/31/2020 1:02 PM EDT HM COLONOSCOPY Routine 04/27/2016 11:23 AM EDT from Last 3 Months or Most Recently Relevant to Health Maintenance Results * (ABNORMAL) CBC auto differential (03/31/2025 2:24 PM EDT) White Blood Count 10.5 4.8 - 10.8 X10*3/uL [facility] Red Blood Count 4.23 4.20 - 5.50 X10*6/uL [facility] Hemoglobin 12.4 12.0 - 16.0 g/dl [facility] Hematocrit 37.7 37.0 - 47.0 % [facility] Mean Corpuscular Volume 89.1 80.0 - 98.0 fL [facility] Mean Corpuscular Hemoglobin 29.3 27.0 - 33.0 pg [facility] Mean Corpuscular HGB Conc 32.9 31.0 - 35.0 g/dl [facility] Red Cell Distribution Width 13.6 11.0 - 16.0 % [facility] Platelet Count 218 160 - 400 X10*3/uL [facility] Mean Platelet Volume 9.7 9.4 - 12.3 fL [facility] Neutrophils Percent Auto 65.1 45 - 73 % [facility] Imm Gran Pct Auto 0.4 0.0 - 0.4 % [facility] Lymphocytes Percent Auto 24.4 20 - 40 % [facility] Monocytes Percent Auto 8.0 2 - 11 % [facility] Eosinophils Percent Auto 1.4 0 - 4 % [facility] Basophils Percent Auto 0.7 0 - 2 % [facility] NRBC Pct Auto 0.0 0.0 - 0.2 /100WBC [facility] Neutrophils Absolute Auto 6.8 2.0 - 8.3 x10*3/uL [facility] Imm Gran Abs Auto 0.04(H) 0.00 - 0.03 X10*3/uL [facility] Lymphocytes Absolute Auto 2.6 1.2 - 4.9 X10*3/uL [facility] Monocytes Absolute Auto 0.8 0.1 - 1.2 X10*3/uL [facility] Eosinophils Absolute Auto 0.2 0.0 - 0.4 X10*3/uL [facility] Basophils Absolute Auto 0.1 0.0 - 0.2 X10*3/uL [facility] NRBC Abs Auto 0.000 0.0 - 0.012 X10*3/uL [facility] 03/31/2025 2:24 PM EDT 03/31/2025 2:31 PM EDT us Generic External Data Provider LAB BLOOD ORDERAB LES Final Result Performing Organization Address [facility] [place] [facility]/ZIP Co de Phone Number [facility] [address] [place] [phone] * Lipase (03/31/2025 2:24 PM EDT) Lipase 37 8 - 78 U/L [facility] 03/31/2025 2:24 PM EDT 03/31/2025 2:31 PM EDT Generic External Data Provider LAB BLOOD ORDERAB LES Final Result Performing Organization Address [facility]/ZIP Co de Phone Number [facility] [address] [place] [phone] * (ABNORMAL) Comprehensive Metabolic Panel (03/31/2025 2:24 PM EDT) Sodium 143 135 - 145 mmol/L [facility] Potassium 3.7 3.3 - 5.1 mmol/L [facility] Chloride 112(H) 96 - 108 mmol/L [facility] Carbon Dioxide 21(L) 22 - 29 mmol/L [facility] Anion Gap 14 12 - 20 [facility] Urea Nitrogen (BUN) 11 9 - 16 mg/dL [facility] Creatinine, Serum 0.79 0.5 - 1.4 mg/dL [facility] Creatinine Clr Calc Pharmacy 82.7 [facility] Comment:Provided height and weight: 160.02 cm,98.9 kg.eGFR (calculated from the MDRD study equation) and eCrCl(calculated from the Cockcroft-Gault equation) are based ondifferent parameters and may not yield comparable results.If eCrCl result is absurd, please check patient'sheight/weight. Estimated Glomerular Filt Rate >60 [facility] Comment:Chronic Kidney Disea se: Estimated GFR < 60 mL/min/1.63o2Tewhos Kidney Disease: Estimated GFR < 15 mL/min/1.73m2 Glucose 117(H) 60 - 115 mg/dL [facility] Calcium 8.9 8.4 - 10.2 mg/dL [facility] Bilirubin, Total 0.2 0.0 - 1.0 mg/dL [facility] Aspartate Amino Transferase 23 5 - 31 U/L [facility] Alanine Aminotransferase 21 0 - 31 U/L [facility] Total Protein 7.2 6.5 - 8.0 g/dL [facility] Albumin Level 4.0 3.5 - 5.0 g/dL [facility] Alkaline Phosphatase 64 39 - 117 U/L [facility] 03/31/2025 2:24 PM EDT 03/31/2025 2:31 PM EDT us Generic External Data Provider LAB BLOOD ORDERAB LES Final Result [facility] [address] [place] [phone] * (ABNORMAL) POCT HGB A1C (03/12/2025 1:02 PM EDT) Hemoglobin A1C 6.1(A) 4.0 - 5.7 % QC Media Lot # [id number] Lot# Expiration Date Blood 03/12/2025 1:02 PM EDT us Eulalio Kunz MD POINT OF CARE TEST ENTER/EDIT OR DERABLES Final Result * POCT Glucose (03/12/2025 1:00 PM EDT) Glucose Blood, POC 142 60 - 200 mg/dL QC Media Lot # [id number] Lot# Expiration Date Blood Capillary blood specimen / Unknown 03/12/2025 1:00 PM EDT us Eulalio Kunz MD POINT OF CARE TEST ENTER/EDIT OR DERABLES Final Result * BI Mammogram Screening Tomosynthesis Bilateral (09/24/2024 2:45 PM EST) Anatomical Region Laterality Modality Breast Bilateral Mammography 09/24/2024 2:45 PM EST Narrative 09/29/2024 12:41 PM EST [address] [place] [address] Mammography Report Signed Patient: Jannet Quintero MR#: [id number] 31 : 1965 Acct:[id number] Age/Sex: 59 / F ADM Date: 09/24/24 Loc: [facility] Attending Dr: Eulalio Kunz MD Ordering Physician: Eulalio Kunz MD Results: 1Negative Date of Service: 09/24/24 Follow Up: 1 Year From Orig inal Mammogram Procedure(s): MM tomosynthesis screening BI Accession Number(s): [id number] cc: Eulalio Kunz MD EXAMINATION: MM SCREENING DIGITAL BREAST TOMOSYNTHESIS, BILATERAL CLINICAL INFORMATION: Screening. Asymptomatic. COMPARISON: Mammography: Comparison is made with available priors TECHNIQUE: Digital breast mammography with tomosynthesis is performed in both the craniocaudal and mediolateral oblique views along with computer-aided detection (CAD). FINDINGS: There are scattered areas of fibroglandular density (ACR BI-RADS breast composition Category b). There are no significant masses, abnormal calcifications, or other abnormalities. MM/MM tomosynthesis screening BI IMPRESSION: No mammographic evidence of malignancy. ASSESSMENT: BI-RADS BI-RADS 1 - Negative RECOMMENDATION: Routine annual mammography screening. 1 year F/U This examination should not preclude the clinical evaluation of a suspicious palpable abnormality. This patient's information was entered into a reminder system with a target due date for their next mammogram. Electronically signed by: Ronda Palmer DO 09/29/2024 12:38 PM [facility] Dictated By: Ronda Palmer DO Signed By: <Electronically signed by Ronda Palmer DO in OV> 09/29/24 1238 DD/ 1445 TD/TT: 09/24/24 1457 Sanitation Worker: Procedure Note Donotuseinterpreter, Image - 09/29/2024 [facility] [address] [place] [address] Mammography Report Signed Patient: Urszula Quintero#: [id number] [birth year] : 1965Acct:[id number] Age/Sex: 59 / FADM Date: 09/24/24 Loc: MAMMO Attending Dr: Eulalio Kunz MD Ordering Physician: Eulalio Kunz MDResults: 1Negative Date of Service: 09/24/24Follow Up: 1 Year From Orig inal Mammogram Procedure(s): MM tomosynthesis screening BI Accession Number(s): [id number] cc: Eulalio Kunz MD EXAMINATION: MM SCREENING DIGITAL BREAST TOMOSYNTHESIS, BILATERAL CLINICAL INFORMATION: Screening. Asymptomatic. COMPARISON: Mammography: Comparison is made with available priors TECHNIQUE: Digital breast mammography with tomosynthesis is performed in both the craniocaudal and mediolateral oblique views along with computer-aided detection (CAD). FINDINGS: There are scattered areas of fibroglandular density (ACR BI-RADS breast composition Category b). There are no significant masses, abnormal calcifications, or other abnormalities. MM/MM tomosynthesis screening BI IMPRESSION: No mammographic evidence of malignancy. ASSESSMENT: BI-RADS BI-RADS 1 - Negative RECOMMENDATION: Routine annual mammography screening. 1 year F/U This examination should not preclude the clinical evaluation of a suspicious palpable abnormality. This patient's information was entered into a reminder system with a target due date for their next mammogram. Electronically signed by: Ronda Palmer DO 09/29/2024 12:38 PM [facility] Dictated By: Rodna Palmer DO Signed By: <Electronically signed by Ronda Palmer DO in OV> 09/29/24 1238 DD/ 1445 TD/TT: 09/24/24 1457 Sanitation Worker: Eulalio Kunz MD IM BI PROCEDURES Edited Result - Final * LIPID PANEL, STANDARD (01/14/2022 11:51 AM EDT) Chol/HDLC Ratio 2.1 <5.0 (calc) [facility] Cholesterol, Total 126 <200 mg/dL [facility] HDL Cholesterol 59 > OR = 50 mg/dL [facility] LDL Cholesterol 47 mg/dL (calc) [facility] Comment: Reference range: <100 Desirable range <100 mg/dL for primary prevention; <70 mg/dL for patients with CHD or diabetic patients with > or = 2 CHD risk factors. LDL-C is now calculated using the Jered calculation, which is a validated novel method providing better accuracy than the Friedewald equation in the estimation of LDL-C. Harshal SS et al. ANURAG. 2013;310(19): 2829-3599 (http://education.[employer].Yamisee/faq/UBW730) Non-HDL Cholesterol 67 <130 mg/dL (calc) [facility] Comment: For patients with diabetes plus 1 major ASCVD risk factor, treating to a non-HDL-C goal of <100 mg/dL (LDL-C of <70 mg/dL) is considered a therapeutic option. Triglycerides 117 <150 mg/dL [facility] 01/14/2022 11:5 1 AM EDT us Eulalio Joaquina EUCEDA LAB BLOOD ORDERABLES Final Resul t [facility] [address] [place] [address], * THINPREP TIS PAP AND HPV mRNA E6/E7 WITH REFLEX TO HPV 16,18/45 (09/24/2021 12:00 AM EST) Clinical Information: None given [facility] COMMENT SEE COMMENT [facility] Comment: EXPLANATORY NOTE: The Pap is a screening test for cervical cancer. It is not a diagnostic test and is subject to false negative and false positive results. It is most reliable when a satisfactory sample, regularly obtained, is submitted with relevant clinical findings and history, and when the Pap result is evaluated along with historic and current clinical information. COMMENT: This Pap test has been evaluated with computer assisted technology. [facility] Hedis Specialist: SEE COMMENT [facility] Comment: KN, CT(ASCP) CT screening location: [place] [address] HPV nRNA E6/E7 Not Detected Not Detected [email or web address] Comment: Methodology: Flight Inspector-Mediated Amplification This assay detects E6/E7 viral messenger RNA (mRNA) from 14 high-risk HPV types (16,18,31,33,35,39,45,51,52,56,58,59,66,68). The analytical performance characteristics of this assay have been determined by [employer]. The modifications have not been cleared or approved by the FDA. This assay has been validated pursuant to the CLIA regulations and is used for clinical purposes. For additional information, please refer to http://education.[employer].Yamisee/faq/SWF503p9 (This link if provided for information/ educational purposes only.) Interpretation/Re sult: Negative for intraepithelial lesion or malignancy. [facility] LMP: NONE GIVEN [facility] Prev. BX: NONE GIVEN [facility] Prev. PAP: NONE GIVEN [facility] SOURCE: None given [facility] Statement Of Adequacy: SEE COMMENT [facility] Comment: Satisfactory for evaluation. Endocervical/transformation zone component present. Age and/or menstrual status not provided Partially obscuring inflammation 09/24/2021 Mirna Miranda TIMBER FRAMER LAB PATHOLOGY ORDERABLES Final Result Performing Organization Address [facility] Phone Number [facility] [address] [place] [address], * HEPATITIS C AB W/REFL TO HCV RNA, QN, PCR (10/31/2020 1:02 PM EDT) HEPATITIS C ANTIBODY NON-REACT SHERLEY NON-REACT SHERLEY [facility] INDEX 0.03 <1.00 [facility] Comment: HCV antibody was non-reactive. There is no laboratory evidence of HCV infection. In most cases, no further action is required. However, if recent HCV exposure is suspected, a test for HCV RNA (test code 37603) is suggested. For additional information please refer to http://education.[employer]/faq/NHB85j9 (This link is being provided for informational/ educational purposes only.) 10/31/2020 1:02 PM EDT Historical Provider HISTORICAL/NON ORDERABLE LABS Final Result Performing Organization Address [facility] de Phone Number [facility] [address] [place] [address], * Hm Colonoscopy (04/27/2016 11:23 AM EDT) Colonoscopy Normal Normal Dione [place] - 04/27/2016 11:23 AM EDT Recommended 10 year follow up Historical Provider HEALTH MAINTENANCE Final Result from Last 3 Months or Most Recently Relevant to Health Maintenance Insurance [facility] [address] [place] [address] Care Teams Bowling Alley Manager Relationship Specialty Start Date End Date Name, MD Eulalio [address] [place] [phone] PCP - General Family Medicine 12/18/21
--- OUTSIDE RECORDS SUMMARY | 2025-03-31 14:55 | XMS_ITS | Encounter Summary ---
Author Organization [employer] Address [address] [facility] [address] [place] [address] Care Team Providers Care Bank Advisor Name Role Phone Name, Eulalio EUCEDA Primary Care Provider [phone] Encounter Details Date Type Department Care Team (Latest Contact Info) Description 08/23/2019 Abstract [facility] CONVERSIONS Dental, Provider, DDS Social History Tobacco [...] Description 05/20/2025 2:30 PM EDT Office Visit [facility] MEDIC[facility] [address] [place] [address] Name, MD Eulalio [address] [place] [address] 08/09/2025 2:30 PM EST Office Visit [facility] OPTOMETRY [address] [place] [address] EliceoDestinee damon, OD [address] [place] [address] documented as of this encounter Visit Diagnoses Not on filedocumented in this encounter Care Teams Bank Advisor Relationship Specialty Start Date End Date Name, MD Eulalio [address] [place] [address] PCP - General Family Medicine 12/18/21 documented as of this encounter
--- OUTSIDE RECORDS SUMMARY | 2025-03-31 14:55 | XMS_ITS | Encounter Summary ---
Author Organization [employer] Address [address] [facility] [address]t [place] [address] Care Team Providers Care Market Research Associate Name Role Phone Name, Eulalio EUCEDA Primary Care Provider [phone] Reason for Visit * Reason Onset Date Comments Appointment Request 08/16/2023 Encounter Details Date Type Department Care Team ([facility] Contact Info) Description 08/16/2023 Telephone [facility] [address] [place], [place] [phone] Name, MD Eulalio [address] [place] [address] Appointment Request Social History Tobacco Use Types [...] Miscellaneous Notes * Telephone Encounter - Kiki Leonard - 08/16/2023 10:21 AM EST Tc from pt requesting to r/s appt for Physical on 08/16/2023 @ 2:00 pm. Please contact pt @ [phone] documented in this encounter Plan of Treatment Upcoming Encounters Date Type Department Care Team (Late st Contact Info) Description 05/20/2025 2:30 PM EDT Office Visit [facility] [address] [place] [address] Name, MD Eulalio [address] [place] [address] 08/09/2025 2:30 PM EST Office Visit [facility] OPTOMETRY [address] [place] [address] Eliceo, Destinee, OD [address] [place] [address] documented as of this encounter Visit Diagnoses Not on filedocumented in this encounter Care Teams Market Research Associate Relationship Specialty Start Date End Date Name, MD Eulalio [address] [place] [address] PCP - General Family Medicine 12/18/21 documented as of this encounter
--- OUTSIDE RECORDS SUMMARY | 2025-03-31 14:55 | XMS_ITS | Encounter Summary ---
Author Organization [employer] Address [address] [place] [address] [address] [place] [address] Care Team Providers Care Opticianry Teacher Name Role Phone Name, Eulalio EUCEDA Primary Care Provider [phone] Encounter Details Date Type Department Care Team ([facility] Contact Info) Description 12/23/2022 Abstract [facility] MEDICINE [address] [place] [id number] Eulalio Kunz MD [address] [place] [address] Social History Tobacco Use Types Packs/Day Years [...] Upcoming Encounters Date Type Department Care Team ([facility] Contact Info) Description 05/20/2025 2:30 PM EDT Office Visit [facility] MEDICINE [address] [place] [address] Eulalio Kunz MD [address] [place] [address] 08/09/2025 2:30 PM EST Office Visit [facility] OPTOMETRY [address] [place] [id number] Eliceo, Destinee, OD [address] [place] [address] documented as of this encounter Procedures Procedure Name Priority Date/Time Associated Diagnosis Comments COLONOSCOPY Routine 04/27/2016 11:23 AM EDT documented in this encounter Results * Colonoscopy (04/27/2016 11:23 AM EDT) Colonoscopy Normal Normal Narrative Dione Jennings - 04/27/2016 11:23 AM EDT Recommended 10 year follow up Historical Provider HEALTH MAINTENANCE Final Result documented in this encounter Visit Diagnoses Not on filedocumented in this encounter Care Teams Opticianry Teacher Relationship Specialty Start Date End Date Name, MD Eulalio [address] [place] [address] PCP - General Family Medicine 12/18/21 documented as of this encounter
[2025-03-31 15:22] LABS: Troponin-I High Sensitivity < 2.7 ng/L (<3.5-17.0)
[2025-03-31 17:32] VITALS: BP 160/76; PULSE 64; RESP 18; TEMP 37; O2SAT 98
--- NOTE | 2025-03-31 17:33 | PC.NURSE ---
patient a&ox3, labs previously drawn, pt c/o 05/10 rt sided/rib pain, rr equal/non labored- lungs clear, vss, pt awaiting provider evaluation, plan of care ongoing
[2025-03-31] MEDS: oxyCODONE HCl Immed Release 5 MG TABLET PO (18:42)
[2025-03-31] MEDS: Lidocaine 4 % Patch ADH..PATCH 1 PATCH TRANSDERMA (18:42)
--- NOTE | 2025-03-31 18:44 | PC.NURSE ---
pt medicated for 05/10 rt flank/back pain
[2025-03-31 19:16] VITALS: BP 150/59; PULSE 61; RESP 16; TEMP 37.1; O2SAT 97
[2025-03-31 19:48] VITALS: BP 150/59; PULSE 61; RESP 16; TEMP 37.1; O2SAT 97
== END 2025-03-31 19:48 | disposition home or self-care (01) ==
PROVIDERS: Physician Assistant Medical; Emergency Provider Student in an Organized Health Care Education/Training Program; PCP Internal Medicine Geriatric Medicine
DX: R10.2 Pelvic and perineal pain (principal); R06.02 Shortness of breath; R07.89 Other chest pain; Z79.899 Other long term (current) drug therapy
CPT/HCPCS: 36415; 71046; 80053; 83690; 84484; 85025; 93005; 99283; 99284

== ENCOUNTER → 2025-03-31 13:58 | Outpatient (BNV) | payer MEDICAID, SELFPAY | PROVIDERS: PCP Internal Medicine Geriatric Medicine; Visit Provider Radiology Diagnostic Radiology | DX: R07.89 Other chest pain (principal) | CPT/HCPCS: 71046 ==

== ENCOUNTER → 2025-03-31 14:29 | Outpatient (BNV) | payer MEDICAID, SELFPAY | PROVIDERS: Emergency Provider Student in an Organized Health Care Education/Training Program; PCP Internal Medicine Geriatric Medicine; Visit Provider Internal Medicine Cardiovascular Disease | DX: R94.31 Abnormal electrocardiogram [ECG] [EKG] (principal); R07.89 Other chest pain | CPT/HCPCS: 93010 ==

== ENCOUNTER 2025-06-29 21:44 | Emergency (ER) | payer MEDICAID, SELFPAY ==
--- NOTE | ~2025-06-29 | XR_ITS ---
CLINICAL HISTORY: rt hip pain 3 view, pelvis and right hip Comparison: None provided Findings: No acute displaced fracture by radiographs. Calcifications lateral to proximal femur nonspecific and may reflect myositis ossific cans. Mild-moderate osteoarthritis of the both hips. Sacrum and SI joints are mostly obscured. Surgical clips noted in the imaged pelvis. Moderate to severe stool burden present in the [id number], including imaged cecum. Phleboliths noted. IMPRESSION: 1. Calcifications lateral to proximal right femur are nonspecific and likely due to myositis of the ossific cans. 2. Mild-moderate osteoarthritis of the both hips. This document has been electronically signed by: Diego Jones MD on 06/29/2025 22:31:28
[2025-06-29 21:48] VITALS: BP 120/65; PULSE 83; RESP 16; TEMP 36.2; O2SAT 94; BMI 36.9
--- NOTE | 2025-06-30 00:02 | ED.LOWEXIN ---
HPI - Extremity Injury (Lower) General Chief Complaint: Extremity Injury, Lower Stated Complaint: Knee Leg Pain/hip pain Time Seen by Provider: 06/30/25 00:00 Source: patient Mode of arrival: ambulatory Limitations: no limitations History of Present Illness ED Provider: Jaquan VIRK HPI Narrative: The patient is a 60-year-old female who presents with acute onset right hip pain that began upon awakening this morning. She denies any recent falls, trauma, or change in activity the previous day. The pain has progressively worsened throughout the day and is exacerbated by weight-bearing, walking, leg lifting, and lying on the affected side (her usual sleeping position). She must walk slowly due to the pain. She denies radiation of pain into the lower leg, describes the majority of her pain in the lateral right hip. She denies prior episodes of similar hip pain and reports no prior right-hip surgeries. She has chronic low back pain, which she states is baseline and distinct from the current hip pain. She also reports persistent right knee pain since a fall a few months ago. She took Tylenol earlier today with minimal relief. Related Data Home Medications ?Medication ?Instructions ?Recorded ?Confirmed calcium carbonate 600 mg PO DAILY 08/15/20 12/24/22 metformin 500 mg tablet 500 mg PO BID 09/07/21 12/24/22 olanzapine 5 mg tablet 5 mg PO BEDTIME 09/07/21 12/24/22 alcohol swabs (Alcohol Prep Pads) 0 pad topical 12/23/21 12/24/22 blood sugar diagnostic (FreeStyle #10 ea 12/23/21 12/24/22 Lite Strips) blood-glucose meter (FreeStyle #1 ea 12/23/21 12/24/22 [place] Lite kit) cholecalciferol (vitamin D3) 50 50 mcg PO DAILY 12/23/21 12/24/22 mcg (2,000 unit) capsule clonazepam 1 mg tablet 1 mg PO TID PRN 12/23/21 12/24/22 lancets 33 gauge (TRUEplus Lancets) #100 ea 12/23/21 12/24/22 topiramate 100 mg tablet 100 mg PO DAILY migraine 12/23/21 12/24/22 zolpidem 12.5 mg tablet,extended 12.5 mg PO BEDTIME 12/23/21 12/24/22 release,multiphase buspirone 15 mg tablet 15 mg PO BID 08/25/23 omeprazole 20 mg capsule,delayed 20 mg PO DAILY 08/25/23 release sertraline 100 mg tablet 200 mg PO QAM 08/25/23 sumatriptan succinate 50 mg tablet 50 mg PO Q6H PRN migraine 08/25/23 Previous Rx's ?Medication ?Instructions ?Recorded gabapentin 100 mg capsule 100 mg PO TID #90 caps 02/08/23 naproxen 500 mg tablet 500 mg PO BID #30 tabs 08/25/23 benzonatate 200 mg capsule 200 mg PO TID PRN cough #20 caps 06/10/24 cefuroxime axetil 500 mg tablet 500 mg PO BID 7 days #14 tabs 06/10/24 celecoxib 200 mg capsule 200 mg PO BID #60 caps 06/12/24 acetaminophen 500 mg tablet 1,000 mg (2 x 500 mg) PO Q8H 7 03/31/25 (Tylenol Extra Strength) days #42 tabs ibuprofen 400 mg tablet 400 mg PO Q8H 10 days #30 tabs 03/31/25 lidocaine 4 % topical patch 1 patch topical DAILY PRN pain #10 03/31/25 ea oxycodone 5 mg capsule 5 mg PO Q8H PRN pain 4 days #12 03/31/25 caps acetaminophen 500 mg capsule 1,000 mg (2 x 500 mg) PO .q8 PRN 06/30/25 fever or pain #30 caps ibuprofen 600 mg tablet 600 mg PO Q8H PRN fever or pain 06/30/25 #30 tabs Allergies Allergy/AdvReac Type Severity Reaction Status Date / Time quetiapine (From SEROQUEL) Allergy Unknown ELEVATED Verified 06/29/25 21:53 HEART RATE, increased heart rate Review of Systems Review of Systems: Yes all other systems are reviewed and are negative [facility] Past Medical History Medical History Morbid obesity Other and unspecified hyperlipidemia Abnormal EKG Precordial chest pain Type 2 diabetes mellitus with unspecified complications Chronic pain Palpitation Fibromyalgia Surgical History Hx of hysterectomy Hx of cholecystectomy Family History Family History Other Family history not known due to adoption Social History Social History Household Members: Children Housing: Apartment Alcohol intake: current Alcohol intake frequency: holidays/special occasions only Patient Tobacco Use Status: Never used Tobacco Smoked in Last 30 Days: No Use of substances other than those prescribed or required for medical reasons: No Advance Directives: No Advance Directives Information Provided: Yes Do you have a plan to hurt others: No Plan service: No Current occupational status: disabled Physical Exam Vital Signs: Vital Signs: Last Vital Signs Temp 98.1 F 06/30/25 02:07 Pulse 74 06/30/25 02:07 Resp 16 06/29/25 21:48 BP 110/67 06/30/25 02:07 Pulse Ox 92 06/30/25 02:07 O2 Del Method Room Air 06/30/25 02:07 BMI result Body Mass Index 36.9 CONSTITUTIONAL: The patient appears non-toxic, well nourished and in no acute distress. Vital signs as documented. HEAD: Atraumatic, normocephalic. EYES: EOMs grossly intact, pupils equal, conjunctiva clear, no exudate. ENT: Nares patent, no discharge. Airway patent, no audible stridor, visible mucosa is pink and moist without noted lesions. NECK: trachea is midline, no obvious masses or gross abnormalities. CHEST: Symmetric movement, normal appearance. LUNGS: Non-labored work of breathing. CARDIAC: No evidence of hypoperfusion. ABDOMEN: Nondistended, no obvious injury. : Deferred. EXTREMITIES: There is tenderness to palpation of the right hip overlying the greater trochanter. Distal CSM intact, 2+ DP/PT pulses. Pain is present but not significantly reproduced with range of motion. Moves all other extremities spontaneously without reported pain. No obvious injury or deformity noted. NEURO: Alert and oriented x3, CN II-XII appear grossly intact. Cerebellar Functioning grossly intact. Speech clear and appropriate. SKIN: Warm, dry, color appropriate. No rashes or lesions noted. Medications Administered Discontinued Medications Generic Name Dose Route Start Last Admin Trade Name Freq PRN Reason Stop Dose Admin Ketorolac Tromethamine 30 mg 06/30/25 00:52 06/30/25 01:14 Ketorolac Tromethamine 30 Mg/Ml Vial IM 06/30/25 00:53 30 mg ONCE ONE Administration Lidocaine 1 patch 06/30/25 00:52 06/30/25 01:16 Lidocaine 4 % Patch Adh..Patch TRANSDERMA 06/30/25 00:53 1 patch ONCE ONE Administration Protocol Medical Decision Making Medical Decision Making [facility] Narrative: 12:57 AM 06/30/2025 (Danielle VIRK): The patient is a 60-year-old female who presents with acute onset right hip pain that began upon awakening this morning. She denies any recent falls, trauma, or change in activity the previous day. The pain has progressively worsened throughout the day and is exacerbated by weight-bearing, walking, leg lifting, and lying on the affected side (her usual sleeping position). She must walk slowly due to the pain. She denies radiation of pain into the lower leg, describes the majority of her pain in the lateral right hip. She denies prior episodes of similar hip pain and reports no prior right-hip surgeries. She has chronic low back pain, which she states is baseline and distinct from the current hip pain. She also reports persistent right knee pain since a fall a few months ago. She took Tylenol earlier today with minimal relief. On exam the patient has point tenderness of the greater trochanter of the right hip, distal CSM is intact, 2+ DP/PT pulses. Patient's pain is more closely reproducible with direct palpation then with flexion or other range of motion of the hip. There is no overlying erythema. The patient's x-ray demonstrates no acute fracture, there are some calcifications noted lateral to the right femur that are nonspecific but likely due to myositis. The patient's presentation is consistent with trochanteric bursitis. We will treat with lidocaine patch, Toradol, and reassess. 1:49 AM 06/30/2025 (Danielle VIRK): Patient reports significant improvement in pain following interventions. Patient will be discharged with outpatient supportive care. Admission/Observation Consideration of admission/observation: Escalation of care including admission/observation considered Radiology Impression Discussion of test interpretation with radiology: I have reviewed the radiologist's reading. Radiologist Impression: 3 view, pelvis and right hip Comparison: None provided Findings: No acute displaced fracture by radiographs. Calcifications lateral to proximal femur nonspecific and may reflect myositis ossific cans. Mild-moderate osteoarthritis of the both hips. Sacrum and SI joints are mostly obscured. Surgical clips noted in the imaged pelvis. Moderate to severe stool burden present in the [id number], including imaged cecum. Phleboliths noted. IMPRESSION: 1. Calcifications lateral to proximal right femur are nonspecific and likely due to myositis of the ossific cans. 2. Mild-moderate osteoarthritis of the both hips. This document has been electronically signed by: Diego Jones MD on 06/29/2025 22:31:28 Independent Historian Clinical information obtained from an independent historian. History obtained from or confirmed by: Spouse External Record Review External record reviewed: Outpatient record and Prior outpatient labs Prescription Management I considered prescription management with: Pain Medication Discharge Plan Discharge Clinical Impression: Trochanteric bursitis of right hip Patient Disposition: Home, Self-Care Instructions: Hip Bursitis (ED) Additional Instructions: Thank you for choosing [facility]'s Emergency Department for your care today. Thankfully your x-ray shows no evidence of acute fracture. At this time there is no indication for admission to the hospital or continued ED observation, and it is safe to discharge you home. Your symptoms and exam are consistent with inflammation of the fluid-filled sac which is meant to reduce friction in your hip, this is a condition known as trochanteric bursitis. You should take alternating (staggered) doses of ibuprofen 600mg and Tylenol 1000mg every 4 hours as needed for any additional pain. Please rest the injured area, and apply ice for 20 minutes every hour. We also have treated you with a lidocaine patch, if you find this provides you significant relief additional patches can be purchased at any local pharmacy without a prescription. Please follow up with your primary care physician for re-evaluation, additional management of your symptoms, and continued preventative care. If you do not have a primary care physician, please call the [facility] at [phone] to establish a new primary care physician. While waiting to establish your new primary care physician, you can call our [facility] at [phone] for non-emergency needs. Please return to the emergency department if you develop a severe or sudden change in your symptoms, a fever over 100.4 that does not improve with Tylenol or Ibuprofen, recurrent vomiting, or any other new or worsening symptoms or concerns. Prescriptions: New ibuprofen 600 mg tablet 600 mg PO Q8H PRN (Reason: fever or pain) Qty: 30 0RF acetaminophen 500 mg capsule 1,000 mg PO .q8 PRN (Reason: fever or pain) Qty: 30 0RF No Action gabapentin 100 mg capsule 100 mg PO TID Qty: 90 5RF celecoxib 200 mg capsule 200 mg PO BID Qty: 60 0RF lidocaine 4 % adhesive patch,medicated 1 patch topical DAILY PRN (Reason: pain) Qty: 10 0RF acetaminophen [Tylenol Extra Strength] 500 mg tablet 1,000 mg PO Q8H 7 Days Qty: 42 0RF oxycodone 5 mg capsule 5 mg PO Q8H PRN (Reason: pain) 4 Days Qty: 12 0RF Rx Instructions: Partial Fill upon patient request. ibuprofen 400 mg tablet 400 mg PO Q8H 10 Days Qty: 30 0RF benzonatate 200 mg capsule 200 mg PO TID PRN (Reason: cough) Qty: 20 0RF cefuroxime axetil 500 mg tablet 500 mg PO BID 7 Days Qty: 14 0RF calcium carbonate 600 mg calcium (1,500 mg) tablet 600 mg PO DAILY metformin 500 mg tablet 500 mg PO BID olanzapine 5 mg tablet 5 mg PO BEDTIME zolpidem 12.5 mg tablet,ext release multiphase 12.5 mg PO BEDTIME cholecalciferol (vitamin D3) 50 mcg (2,000 unit) capsule 50 mcg PO DAILY (DME) blood-glucose meter [FreeStyle [place] Lite] Kit See Rx Instructions .ROUTE TID Qty: 1 Rx Instructions: As directed (DME) FreeStyle Lite Strips Strip See Rx Instructions .ROUTE TID Qty: 10 Rx Instructions: As directed alcohol swabs [Alcohol Prep Pads] Pads, Medicated 0 pad topical (DME) lancets [TRUEplus Lancets] 33 gauge misc See Rx Instructions .ROUTE TID Qty: 100 Rx Instructions: As directed topiramate 100 mg tablet 100 mg PO DAILY clonazepam 1 mg tablet 1 mg PO TID PRN sumatriptan succinate 50 mg tablet 50 mg PO Q6H PRN (Reason: migraine) sertraline 100 mg tablet 200 mg PO QAM omeprazole 20 mg capsule,delayed release(DR/EC) 20 mg PO DAILY buspirone 15 mg tablet 15 mg PO BID naproxen 500 mg tablet 500 mg PO BID Qty: 30 1RF Referrals: Name,MD Eulalio [Primary Care Provider, Internal Medicine] Clinical Impression: Trochanteric bursitis of right hip Discharge Date/Time: 06/30/25 02:16 Print Language: Micronesian
[2025-06-30] MEDS: Lidocaine 4 % Patch ADH..PATCH 1 PATCH TRANSDERMA (01:16)
[2025-06-30 02:07] VITALS: BP 110/67; PULSE 74; TEMP 36.7; O2SAT 92
== END 2025-06-30 02:16 | disposition home or self-care (01) ==
PROVIDERS: Emergency Provider Emergency Medicine; PCP Internal Medicine Geriatric Medicine
DX: M70.61 Trochanteric bursitis, right hip (principal); E11.9 Type 2 diabetes mellitus without complications
CPT/HCPCS: 73502; 96372; 99284; J1885

== ENCOUNTER → 2025-06-29 22:04 | Outpatient (BNV) | payer MEDICAID, SELFPAY | PROVIDERS: Visit Provider Radiology Neuroradiology | DX: M16.0 Bilateral primary osteoarthritis of hip (principal) | CPT/HCPCS: 73502 ==

== ENCOUNTER 2025-07-14 19:44 | Emergency (ER) | payer MEDICAID, SELFPAY ==
--- NOTE | ~2025-07-14 | CT_ITS ---
CLINICAL HISTORY: fall with face strike mouth nose injury CT maxillofacial without contrast Comparison: None provided Findings: No acute fractures. No dislocations. Temporomandibular joints are intact. Paranasal sinuses and mastoid air cells clear. Unremarkable orbital contents. Visualized intracranial contents are within normal limits. No foreign bodies. IMPRESSION: Unremarkable maxillofacial CT. This document has been electronically signed by: Pollo Britt MD on 07/14/2025 21:41:45
--- NOTE | ~2025-07-14 | CT_ITS ---
CLINICAL HISTORY: fall with head strike CT head without contrast Comparison: 05/11/2024 12:32 AM EDT: CT Findings: No intra-axial mass, midline shift, hydrocephalus, or acute hemorrhage. No significant atrophy-like change or white matter disease. The visualized paranasal sinuses and mastoid air cells are normal. The orbits are within normal limits. No skull fracture. IMPRESSION: 1. No acute intracranial findings. This document has been electronically signed by: Pollo Britt MD on 07/14/2025 21:41:35
--- NOTE | ~2025-07-14 | CT_ITS ---
CLINICAL HISTORY: fall with head strike CT cervical spine without contrast Comparison: CT/SR - CT CERVICAL SPINE WITHOUT IV CONTRAST - 05/11/24 00:32 EDT Findings: Normal vertebral body alignment. No significant degenerative change. No fracture or dislocation. Visualized intracranial contents are unremarkable. No cervical fluid collections or masses. No consolidation or effusion at the lung apices. C5-6: Mild anterior spurring. [id number] DJD. C6-7: [id number] DJD. IMPRESSION: 1. No acute cervical spine abnormality. This document has been electronically signed by: Pollo Britt MD on 07/14/2025 22:37:33
[2025-07-14 19:47] VITALS: BP 136/68; PULSE 88; RESP 18; TEMP 36.4; O2SAT 94; BMI 35.4
--- NOTE | 2025-07-14 19:47 | ED.GENADULT ---
HPI - General Adult General Chief complaint: Fall Stated complaint: fell outside, fell face first Time Seen by Provider: 07/14/25 21:13 Source: patient and family Mode of arrival: ambulatory Limitations: no limitations History of Present Illness ED Provider: Dr. Araceli Tijerina HPI narrative: 60-year-old female with history of DM and depression presenting after a fall that occurred at home. Patient reports that she slipped on the ice in her front yard, falling face forward onto her porch. Hit her face on the wooden planks of her porch. No loss of consciousness. She does not take blood thinners. Has been feeling well prior to the fall. Describes pain in her face and head. No vision changes or chipped teeth. No numbness/tingling/weakness of the extremities. Ambulatory after the fall wtih assistance. Related Data Home Medications ?Medication ?Instructions ?Recorded ?Confirmed calcium carbonate 600 mg PO DAILY 08/15/20 12/24/22 metformin 500 mg tablet 500 mg PO BID 09/07/21 12/24/22 olanzapine 5 mg tablet 5 mg PO BEDTIME 09/07/21 12/24/22 alcohol swabs (Alcohol Prep Pads) 0 pad topical 12/23/21 12/24/22 blood sugar diagnostic (FreeStyle #10 ea 12/23/21 12/24/22 Lite Strips) blood-glucose meter (FreeStyle #1 ea 12/23/21 12/24/22 Deering Lite kit) cholecalciferol (vitamin D3) 50 50 mcg PO DAILY 12/23/21 12/24/22 mcg (2,000 unit) capsule clonazepam 1 mg tablet 1 mg PO TID PRN 12/23/21 12/24/22 lancets 33 gauge (TRUEplus Lancets) #100 ea 12/23/21 12/24/22 topiramate 100 mg tablet 100 mg PO DAILY migraine 12/23/21 12/24/22 zolpidem 12.5 mg tablet,extended 12.5 mg PO BEDTIME 12/23/21 12/24/22 release,multiphase buspirone 15 mg tablet 15 mg PO BID 08/25/23 omeprazole 20 mg capsule,delayed 20 mg PO DAILY 08/25/23 release sertraline 100 mg tablet 200 mg PO QAM 08/25/23 sumatriptan succinate 50 mg tablet 50 mg PO Q6H PRN migraine 08/25/23 Previous Rx's ?Medication ?Instructions ?Recorded gabapentin 100 mg capsule 100 mg PO TID #90 caps 02/08/23 naproxen 500 mg tablet 500 mg PO BID #30 tabs 08/25/23 benzonatate 200 mg capsule 200 mg PO TID PRN cough #20 caps 06/10/24 cefuroxime axetil 500 mg tablet 500 mg PO BID 7 days #14 tabs 06/10/24 celecoxib 200 mg capsule 200 mg PO BID #60 caps 06/12/24 acetaminophen 500 mg tablet 1,000 mg (2 x 500 mg) PO Q8H 7 03/31/25 (Tylenol Extra Strength) days #42 tabs ibuprofen 400 mg tablet 400 mg PO Q8H 10 days #30 tabs 03/31/25 lidocaine 4 % topical patch 1 patch topical DAILY PRN pain #10 03/31/25 ea oxycodone 5 mg capsule 5 mg PO Q8H PRN pain 4 days #12 03/31/25 caps acetaminophen 500 mg capsule 1,000 mg (2 x 500 mg) PO .q8 PRN 06/30/25 fever or pain #30 caps ibuprofen 600 mg tablet 600 mg PO Q8H PRN fever or pain 06/30/25 #30 tabs cyclobenzaprine 10 mg tablet 10 mg PO TID #10 tabs 07/14/25 Allergies Allergy/AdvReac Type Severity Reaction Status Date / Time quetiapine (From SEROQUEL) Allergy Unknown ELEVATED Verified 07/14/25 19:51 HEART RATE, increased heart rate Review of Systems Review of Systems: as per HPI, full review of systems performed and negative but for the above mentioned pertinent positives and negatives. [facility] Past Medical History Medical History Morbid obesity Other and unspecified hyperlipidemia Abnormal EKG Precordial chest pain Type 2 diabetes mellitus with unspecified complications Chronic pain Palpitation Fibromyalgia Surgical History Hx of hysterectomy Hx of cholecystectomy Family History Family History Other Family history not known due to adoption Social History Social History (Reviewed 07/14/25 @ 23:44 by NATHAN Morris Household Members: Children Housing: Apartment Alcohol intake: current Alcohol intake frequency: holidays/special occasions only Patient Tobacco Use Status: Never used Tobacco Smoked in Last 30 Days: No Use of substances other than those prescribed or required for medical reasons: No Advance Directives: No Advance Directives Information Provided: Yes Do you have a plan to hurt others: No Plan service: No Current occupational status: disabled Physical Exam ED Exam Exam: GENERAL: Uncomfortable-Appearing, conversant, mild distress due to pain. SKIN: Normal skin color for ethnicity, warm, dry, intact, no rashes noted. HEENT:? Normocephalic, facial contusion over the upper lip, nose and forehead, no stridor, airway patent, no raccoon's eyes, no Velasquez sign, dentition intact, EOMI. NECK: Soft, supple, full ROM, midline structures nontender, no step-offs, no deformities, no lymphadenopathy. CHEST: Heart regular rate and rhythm, no murmurs, symmetric chest rise and fall, no crepitus. PULMONARY: Clear to auscultation bilaterally, no labored breathing, no wheezes/rhales/rhonchi. ABDOMINAL: Soft, nondistended, nontender, positive bowel sounds in all quadrants. : Deferred. MUSCULOSKELETAL: Normal tone, full range of motion, no deformities, no contusions, hypertonicity of the bilateral trapezius musculature. NEURO: Alert and oriented x3, CN II through XII intact, equal strength and sensation bilateral upper and lower extremities, no focal neurologic deficits.? PSYCHIATRIC: Anxious affect, fluid speech, good eye contact and appropriate demeanor. Vital Signs: Vital Signs - 24 hr 07/14/25 19:47 07/14/25 21:09 07/14/25 23:21 Temperature 97.5 F 98.2 F 98.5 F Pulse Rate 88 77 82 Respiratory Rate 18 18 Blood Pressure 136/68 158/75 H 143/82 H Pulse Oximetry 94 94 97 Oxygen Delivery Method Room Air Room Air Room Air BMI result Body Mass Index 35.4 Course Course Course Narrative: This is a Rapid Medical Examination (RME) performed by Danielle Bruce PA-C in triage. Full HPI, ROS, assessment and treatment plan per primary provider in the Main ED. Hx: 60 yo F here w/ nose and mouth pain s/p slip and fall on ice on her porch, landing on her face [employer]. no LOC, no thinners. denies neck pain. PE/vitals: lac noted to left upper lip, no active bleeding, dentition intact. no epistaxis, no septal hematoma, slight deformity to nasal bridge, perrla, no midline c spine tenderness or step off. Plan: imaging Medical Decision Making Medical Decision Making MDM Narrative: Patient presents today with chief complaint of trauma. Different diagnosis on this patient includes intracranial hemorrhage, skull fracture, neck injury including fracture or spinal cord pathology. Other diagnoses considered would include chest or abdominal trauma as well as long bone fractures. Based on my physical exam, the ordered imaging modalities are indicated. The patient specifically does not show any signs of central cord syndrome as evidenced by equal strength in the upper extremities with normal two-point discrimination. Sensation is not altered. GCS is appropriate. Patient is neurovascularly intact. There are no signs of vascular emergency. No signs of shock. No respiratory distress. Patient was given Valium, Motrin for pain control. CT shows no evidence of acute traumatic process. Patient feeling improved after Valium and Motrin. Plan for discharge home and outpatient follow up. Discussed return precautions at length. Discharged home in stable condition. Differential Diagnosis Differential Diagnoses: The differential diagnosis associated with the presentation includes (As above) Admission/Observation Consideration of admission/observation: Escalation of care including admission/observation considered Radiology Impression Discussion of test interpretation with radiology: I have reviewed the radiologist's reading. External Record Review External record reviewed: Inpatient record Prescription Management I considered prescription management with: Pain Medication Chronic Conditions Patient?s care impacted by: Diabetes Discharge Plan Discharge Clinical Impression: Ground-level fall, Facial contusion, Closed head injury Patient Disposition: Home, Self-Care Instructions: Head Injury (ED), Facial Contusion (ED) Additional Instructions: Thank you for choosing [facility] Emergency Department for your care today. Your workup today is consistent with a concussion. Thankfully at this time there is no evidence of an acute emergent process that requires admission to the hospital or continued ED observation, and it is safe to discharge you home. A concussion is a bruise to your brain which may cause nausea, vomiting, headache, and difficulty concentrating/focusing. Similar to any other bruising, you must rest the injured area to prevent recurrent symptoms, reinjury, or other complications. In order to rest your brain, please avoid use of electronics such as cell phones, iPads, or TVs. Please avoid highly complex mental tasks/projects that require intense focus or concentration, and please avoid strenuous physical activity. Once your symptoms have resolved, you may slowly increase your activity level. If symptoms return please discontinue the activity which caused the recurrence of symptoms for 48 hours, before again attempting the same activity. You may not participate in any activities that are a high risk for recurrent head injury until you've returned to your baseline activity level without recurrence of your symptoms, plus one additional week. Use cyclobenzaprine as needed for muscle spasms in your neck or back. Do not take this medication if you are driving as it can make you drowsy. Use ibuprofen and Tylenol as needed for pain. Please follow up with your primary care physician for re-evaluation, additional management of your symptoms, return to activity clearance, and continued preventative care. If you do not have a primary care physician, please call the [facility] at [phone] to establish a new primary care physician. While waiting to establish your new primary care physician, you can call our [facility] at [phone] for non-emergency needs. Please return to the emergency department if you develop a severe or sudden change in your symptoms, a fever over 100.4 that does not improve with Tylenol or Ibuprofen, recurrent vomiting, or any other new or worsening symptoms or concerns. Prescriptions: New cyclobenzaprine 10 mg tablet 10 mg PO TID Qty: 10 0RF No Action gabapentin 100 mg capsule 100 mg PO TID Qty: 90 5RF celecoxib 200 mg capsule 200 mg PO BID Qty: 60 0RF lidocaine 4 % adhesive patch,medicated 1 patch topical DAILY PRN (Reason: pain) Qty: 10 0RF acetaminophen [Tylenol Extra Strength] 500 mg tablet 1,000 mg PO Q8H 7 Days Qty: 42 0RF oxycodone 5 mg capsule 5 mg PO Q8H PRN (Reason: pain) 4 Days Qty: 12 0RF Rx Instructions: Partial Fill upon patient request. ibuprofen 400 mg tablet 400 mg PO Q8H 10 Days Qty: 30 0RF ibuprofen 600 mg tablet 600 mg PO Q8H PRN (Reason: fever or pain) Qty: 30 0RF acetaminophen 500 mg capsule 1,000 mg PO .q8 PRN (Reason: fever or pain) Qty: 30 0RF benzonatate 200 mg capsule 200 mg PO TID PRN (Reason: cough) Qty: 20 0RF cefuroxime axetil 500 mg tablet 500 mg PO BID 7 Days Qty: 14 0RF calcium carbonate 600 mg calcium (1,500 mg) tablet 600 mg PO DAILY metformin 500 mg tablet 500 mg PO BID olanzapine 5 mg tablet 5 mg PO BEDTIME zolpidem 12.5 mg tablet,ext release multiphase 12.5 mg PO BEDTIME cholecalciferol (vitamin D3) 50 mcg (2,000 unit) capsule 50 mcg PO DAILY (DME) blood-glucose meter [FreeStyle [place]ering Lite] Kit See Rx Instructions .ROUTE TID Qty: 1 Rx Instructions: As directed (DME) FreeStyle Lite Strips Strip See Rx Instructions .ROUTE TID Qty: 10 Rx Instructions: As directed alcohol swabs [Alcohol Prep Pads] Pads, Medicated 0 pad topical (DME) lancets [TRUEplus Lancets] 33 gauge misc See Rx Instructions .ROUTE TID Qty: 100 Rx Instructions: As directed topiramate 100 mg tablet 100 mg PO DAILY clonazepam 1 mg tablet 1 mg PO TID PRN sumatriptan succinate 50 mg tablet 50 mg PO Q6H PRN (Reason: migraine) sertraline 100 mg tablet 200 mg PO QAM omeprazole 20 mg capsule,delayed release(DR/EC) 20 mg PO DAILY buspirone 15 mg tablet 15 mg PO BID naproxen 500 mg tablet 500 mg PO BID Qty: 30 1RF Print Language: Belarusian
[2025-07-14 21:09] VITALS: BP 158/75; PULSE 77; TEMP 36.8; O2SAT 94
--- OUTSIDE RECORDS SUMMARY | 2025-07-14 21:11 | XMS_ITS | Encounter Summary ---
Author Organization [employer] Address [address] [place] [address] Care Team Providers Care Post Partum Nurse Name Role Phone Name, Eulalio EUCEDA Primary Care Provider [phone] Richard Parikh RN Unavailable [phone] Judith Rodríguez Unavailable Unavailable Judith Rodríguez Unavailable Encounter Details Date Type Department Care Team (Latest Contact Info) Description 08/23/2019 Abstract [facility] CONVERSIONS Dental, Provider, DDS Social History [...] Care Team (Late st Contact Info) Description 08/09/2025 2:30 PM EST Office Visit [facility] OPTOMETRY [address] [place], [place] [phone] EliceoDestinee damon, OD [address] [place] [address] 08/27/2025 2:30 PM EST Office Visit [facility] MEDICINE [address] [place], [place] [phone] Eulalio Kunz MD [address] [place], [place] [phone] documented as of this encounter Visit Diagnoses Not on filedocumented in this encounter Care Teams Post Partum Nurse Relationship Specialty Start Date End Date Name, MD Eulalio [address] [place] [address] PCP - General Family Medicine 12/18/21 Richard Parikh, RN [address] [place] [address] Registered Nurse Family Medicine 04/02/25 Judith Rodríguez 04/02/25 04/02/25 Judith Rodríguez 04/02/25 documented as of this encounter
--- OUTSIDE RECORDS SUMMARY | 2025-07-14 21:11 | XMS_ITS | Clinical Summary ---
Author Organization [employer] Address [address] [facility] 7t [place] [address] Care Team Providers Care Epic Willow Analyst Name Role Phone Name, Euallio EUCEDA Primary Care Provider [phone] Richard Parikh RN Unavailable [phone] Judith Rodríguez Unavailable Allergies Active Allergy Reactions Criticality Noted Date Comments Quetiapine Rash Low 09/25/2015 Other reaction(s): Altered Heart Rate Other Reaction(s): ELEVATED HEART RATE, increased heart rate Medications zolpidem CR (Ambien CR) 12.5 MG ER tablet Take 1 tablet by mouth at bed time. Active omeprazole (PriLOSEC) [address] capsule TAKE 1 CAPSULE BY MOUTH EVERY DAY BEFORE A MEAL 2 Active Blood Pressure kitIndications:El evated BP [...] EVERY DAY 90 capsule 3 4 Active SUMAtriptan (Imitrex) 50 MG tabletIndications :Migraine without status migrainosus, not intractable, unspecified migraine type TAKE 1 TABLET BY MOUTH EVERY 6 HOURS NEEDED FOR MIGRAINE 9 tablet 5 07/10/2025 12:21 PM EST 5 Active metFORMIN (Glucophage) 500 MG tabletIndications :Prediabetes TAKE 1 TABLET BY MOUTH TWICE DAILY IN THE MORNING AND IN THE EVENING WITH MEALS 180 tablet 5 5 Active Acetaminophen Extra Strength 500 MG tablet TAKE 1 TABLET BY MOUTH EVERY 8 HOURS NEEDED FOR PAIN OR FEVER 5 Active topiramate (Topamax) 100 MG tablet TAKE 1 TABLET BY MOUTH EVERY DAY TO PREVENT MIGRAINE 90 tablet 3 5 Active cyclobenzaprine (Flexeril) 5 MG tabletIndications :Chronic right-sided low back pain with right-sided sciatica,Lumbar back pain Take 1 tab as needed up to 3 times daily for back pain 30 tablet 5 Active gabapentin (Neurontin) 100 MG capsule TAKE 1 CAPSULE BY MOUTH THREE TIMES DAILY 90 capsule 2 07/10/2025 12:21 PM EST 5 Active Active Problems Problem Noted Date Diagnosed Date Psychosis ([facility]) 03/12/2025 Abnormal EKG 10/07/2023 Fibromyalgia 10/07/2023 Assessment & Plan (02/19/2025 8:07 AM EDT): Pt attended and participated in chronic pain group today - good engagement with group model of care - continue to use combination of non-pharmacological modalities to address pain - followup in one or more weeks Hyperlipidemia 10/07/2023 Morbid obesity ([facility]) 10/07/2023 Plantar fasciitis of right foot 10/07/2023 [...] 08/13/2022 Overview (08/13/2022): Around 2019, [place] [facility] [place] Prediabetes 06/21/2019 Anxiety 05/01/2018 Migraine 07/29/2015 History of hysterectomy 04/26/2012 Resolved Problems Problem Noted Date Diagnosed Date Resolved Date Precordial chest pain 10/07/20232024 Type 2 diabetes mellitus wit h unspecified complications 10/07/2023 03/12/2025 Fibromyositis 07/29/2015 02/18/2025 Encounters Date Type Department Care Team Description 06/17/2025 Patient Outreach [facility] [address] [place] [address] Eulalio Kunz MD Care Coordination (C3/CM Outreach) 06/02/2025 Refill [facility] [address] [place] [address] Eulalio Kunz MD 05/24/2025 1:00 PM EDT Office Visit [facility] [address] [place] [address] Katharine Vega ANP Chronic right-sided low back pain with right-sided sciatica (Primary Dx); Elevated blood pressure reading without diagnosis of hypertension; Lumbar back pain 05/24/2025 Travel 05/17/2025 Telephone [facility] [address] [place] [address] Eulalio Kunz MD chart prep 05/14/2025 Patient Outreach [facility] [address] [place] [address] Eulalio Kunz MD Care Coordination (C3/CM Outreach) 05/02/2025 Refill [facility] [address] [place] [address] Eulalio Kunz MD 04/16/2025 5:20 PM EDT [facility] [address] [address] Hiren Leo MD Spasm of left trapezius muscle (Primary Dx) 04/16/2025 Patient Outreach [facility] [address] [place] [address] Eulalio Kunz MD Care Coordination (C3/CM Outreach) 04/16/2025 Travel from Last 3 Months Immunizations Immunization Administration Dates Next Due Influenza Injectable Quadriv alant Preservative Free IIV4 MDCK 06/06/2019 Influenza injectable quadriv alent IIV4 with preservative 08/13/2022,05/01/2018 Influenza injectable quadriv alent preservative free 07/21/2023,06/16/2021,06/17/2016 Influenza, IIV3, injectable 10/09/2009 Influenza, seasonal, injecta ble, preservative free 09/14/2024 Pfizer Covid-19 Vaccine 12+ 09/14/2024, Pneumococcal Conjugate PCV 20 03/12/2025 Rabies, intramuscular 02/17/2019, 019,02/03/2019,01/26,01/12/2014 TD (adult), 2 [...] is your housing situation today? I have talonphilippe john 03/05/[address] you [...] Sign Reading Time Taken Comments Blood Pressure 142/88 05/24/2025 1:18 PM EDT Pulse 96 05/24/2025 1:08 PM EDT Temperature 36.8 C (98.2 F) 05/24/2025 1:08 PM EDT Respiratory Rate 19 05/24/2025 1:08 PM EDT Oxygen Saturation 95% 03/12/2025 12:58 PM EDT Inhaled Oxygen Concentration - - Weight 95.1 kg (209 lb 9.6 oz) 05/24/2025 1:08 P M EDT Height 160 cm (5' 3 ) 05/24/2025 1:08 PM EDT Body Mass Index 37.13 05/24/2025 1:08 PM EDT Plan of Treatment Upcoming Encounters Date Type Department Care Team (Late st Contact Info) Description 08/09/2025 2:30 PM EST Office Visit [facility] [address] [place] [address] Eliceo, Destinee, OD [address] [place] [address] 08/27/2025 2:30 PM EST Office Visit [facility] [address] [place] [address] Name, MD Eulalio [address] [place] [address] Health Maintenance Due Date Last Done Comments CT Colonography 1963 FIT DNA/Cologuard 1963 FIT 1965 FOBT 1965 HIV Screening 1965 Sigmoidoscopy 1965 COVID-19 Vaccine ( season) 2025 09/14/2024, 07/21/2023, 08/27/2021, Additional history exists Influenza Vaccine (#1) 2025 , 07/21/2023, 08/13/2022, Additional history exists SDOH Screening 03/05/2026 03/05/2025 Alcohol/Substance Use Screening 03/12/2026 03/12/2025 Depression Screening 03/12/2026 03/12/2025, 08/12/20 25 Diabetes: Hemoglobin A1C 03/12/2026 025, 04/06/2024, 03/09/2021, Additional history exists Disability Screening 03/12/2026 03/12/2025 Colonoscopy 04/27/2026 04/27/2016 Colorectal Cancer Screening 04/27/2026 Tobacco Screening 05/24/2026 05/24/2025 Cervical Cancer Screening 09/24/2026 HPV/Cotest 09/24/2026 09/24/2021 Mammogram 09/24/2026 09/24/2024, 12/31, 06/22/2019 Pap Smear 09/24/2026 09/24/2021 Lipid Panel 01/14/2027 01/14/2022, 10/31/2020 DTaP/Tdap/Td Vaccines (2 - Td or Tdap) 05/01/2028 05/01/2018, 01/12/2014, 02/28/2006 RSV Patients and Patients Aged 60 years or older (1 - 1-dose 75+ series) 2038 Hepatitis C Screening Completed 10/31/2020 Zoster Vaccines Completed 03/24/2021, 01/19/2021 Pneumococcal Vaccine: 50+ Years Completed 03/12/2025 HIB [...] on patient's age to complete this topic Goals Goal Patient Goal Type Associated Problems Recent Progress Patient-Stated? Author Help patients manage their type 2 diabetes Care Plan Help patients manage their type 2 diabetes Judith Estevez Patient has chronic kidney disease Care Plan Patient has chronic kidney disease No Judith Rodríguez Procedures Procedure Name Priority Date/Time Associated Diagnosis Comments POCT GLYCATED HEMOGLOBIN, TOTAL Routine 03/12/2025 1:02 PM EDT Pre-diabetes BI MAMMOGRAM SCREENING TOMOSYNTHESIS [...] Relevant to Health Maintenance Results * (ABNORMAL) POCT HGB A1C (03/12/2025 1:02 PM EDT) Hemoglobin A1C 6.1(A) 4.0 - 5.7 % QC Media Lot # [id number] Lot# Expiration Date Blood 03/12/2025 1:02 PM EDT Eulalio Kunz MD POINT OF CARE TEST ENTER/EDIT OR DERABLES Final Result * BI Mammogram Screening Tomosynthesis Bilateral (09/24/2024 2:45 PM EST) Anatomical Region Laterality Modality Breast Bilateral Mammography 09/24/2024 2:45 PM EST Narrative 09/29/2024 12:41 PM EST [facility] [address] [place] [address] [place] [address] Mammography Report Signed Patient: Jannet Quintero MR#: [id number] 31 : 1965 Acct:[id number] Age/Sex: 59 / F ADM Date: 09/24/24 Loc: [facility] Attending Dr: Eulalio Kunz MD Ordering Physician: Eulalio Kunz MD Results: 1Negative Date of Service: 09/24/24 Follow Up: 1 Year From Orig inal Mammogram Procedure(s): MM tomosynthesis screening BI Accession Number(s): [id number] cc: Eulalio Kunz MD EXAMINATION: MM SCREENING [...] by: Ronda Palmer DO 09/29/2024 12:38 PM [facility] [place] Dictated By: Ronda Palmer DO Signed By: <Electronically signed by Ronda Palmer DO in OV> 09/29/24 1238 DD/ 1445 TD/TT: 09/24/24 1457 Mold Setter: Procedure Note Donotuseinterpreter, Image - 09/29/2024 [facility] [address] [place], [place] [address] Mammography Report Signed Patient: Dariusz QuinteroR#: [id number] 31 : 1965Acct:[id number] Age/Sex: 59 / FADM Date: 09/24/24 Loc: [facility] Attending Dr: Eulalio Kunz MD Ordering Physician: Eulalio Kunzesults: 1Negative Date of Service: 09/24/24Follow Up: 1 Year From Orig inal Mammogram Procedure(s): MM tomosynthesis screening BI Accession Number(s): [id number] cc: Name,Eulalio EUCEDA EXAMINATION: MM SCREENING DIGITAL BREAST TOMOSYNTHESIS, BILATERAL [...] by: Ronda Palmer DO 09/29/2024 12:38 PM [facility] [place] Dictated By: Ronda Palmer DO Signed By: <Electronically signed by Ronda Palmer DO in OV> 09/29/24 1238 DD/ 1445 TD/TT: 09/24/24 1457 Mold Setter: Eulalio Kunz MD [facility] PROCEDURES Edited Result - Final * LIPID [...] equation in the estimation of LDL-C. Harshal SAMUELS et al. ANURAG. 2013;310(19): 1276-9799 (http://education.SpotMe Fitness.Fairlay/faq/OCK262) Non-HDL Cholesterol 67 <130 mg/dL (calc) [facility] Comment: For patients with diabetes plus 1 major ASCVD risk factor, treating to a non-HDL-C goal of <100 mg/dL (LDL-C of <70 mg/dL) is considered a therapeutic option. Triglycerides 117 <150 mg/dL FOUND ATFORMERLY [facility] 01/14/2022 11:5 1 AM EDT us Eulalio Name MD LAB BLOOD ORDERABLES Final Resul t [facility] [address] * THINPREP TIS PAP AND HPV mRNA E6/E7 WITH REFLEX TO HPV 16,18/45 (09/24/2021 12:00 AM EST) Clinical Information: None given [facility] COMMENT SEE COMMENT [facility] ON [...] along with historic and current clinical information. Comment: This Pap test has been evaluated with computer assisted technology. [facility] Barrel Ribs Solderer: SEE COMMENT [facility] Comment: KN, CT(ASCP) CT screening location: [place] [address] HPV nRNA E6/E7 Not Detected Not Detected [facility] Comment: Methodology: Pressure Steamer Tender-Mediated Amplification This assay detects E6/E7 viral messenger RNA (mRNA) from 14 high-risk HPV types (16,18,31,33,35,39,45,51,52,56,58,59,66,68). The analytical performance characteristics of this assay have been determined by [employer]. The modifications have not been cleared or approved by the FDA. This assay has been validated pursuant to the CLIA regulations and is used for clinical purposes. For additional information, please refer to http://education.Devver.Fairlay/faq/JEY825n1 (This link if provided for information/ educational purposes only.) Interpretation/Re sult: Negative for intraepithelial lesion or malignancy. [facility] LMP: NONE [facility]IV[facility] Prev. BX: NONE [facility]IV[facility] Prev. PAP: NONE [facility]IV[facility] SOURCE: None given [facility] Statement Of Adequacy: SEE COMMENT [facility] Comment: Satisfactory for evaluation. Endocervical/transformation zone component present. Age and/or menstrual status not provided Partially obscuring inflammation 09/24/2021 Mirna Miranda TRANSIT COACH OPERATOR LAB PATHOLOGY ORDERABLES Final Result Performing Organization Address [facility] de Phone Number [facility] [address] [place] [address], * HEPATITIS C AB W/REFL TO HCV RNA, QN, PCR (10/31/2020 1:02 PM EDT) HEPATITIS C ANTIBODY NON-REACT SHERLEY NON-REACT SHERLEY [facility] INDEX 0.03 <1.00 [facility] Comment: HCV antibody was non-reactive. There is no laboratory evidence of HCV infection. In most cases, no further action is required. However, if recent HCV exposure is suspected, a test for HCV RNA (test code 18914) is suggested. For additional information please refer to http://education.Biottery/faq/WKI68n8 (This link is being provided for informational/ educational purposes only.) 10/31/2020 1:02 PM EDT Historical Provider HISTORICAL/NON ORDERABLE LABS Final Result Performing Organization Address [facility] Co de Phone Number [facility] [address] [place] [address], * Hm Colonoscopy (04/27/2016 11:23 AM EDT) Colonoscopy Normal Normal Narrative Dione Jennings - 04/27/2016 11:23 AM EDT Recommended 10 year follow up us Historical Provider HEALTH MAINTENANCE Final Result from Last 3 Months or Most Recently Relevant to Health Maintenance Additional Health Concerns Active Problems Noted Date Diagnosed Date Help patients manage their type 2 diabetes 06/17 Patient has chronic kidney disease 06/17/2025 Insurance [facility] C3 Care Teams Epic Willow Analyst Relationship Specialty Start Date End Date Name, MD Eulalio [address] [place] [address] PCP - General Family Medicine 12/18/21 Richard Parikh, RN [address] [place] [address] Registered Nurse Family Medicine 04/02/25 Judith Rodríguez 04/02/25
--- OUTSIDE RECORDS SUMMARY | 2025-07-14 21:11 | XMS_ITS ---
Author Organization [employer] Address [address] [facility] [address] [place] [address] Care Team Providers Care B And B Gang Worker Name Role Phone Name, Eulalio EUCEDA Primary Care Provider [phone] Richard Parikh RN Unavailable [phone] Judith Rodríguez Unavailable CHW Complex Status:Outreach In Progress (Enrolling) Start date:04/02/2025 Enrollment reason:ADT Feed Case Team Name Relationship Phone Judith Rodríguez(Responsible Staff) [phone] Continued Care and Services Coordination
--- OUTSIDE RECORDS SUMMARY | 2025-07-14 21:11 | XMS_ITS ---
Demographics Address [address] [place] [address] [address] [place] [address] Work Phone Mobile Phone Preferred Language en Marital Status Denominational Affiliation Unknown Race Other Race Ethnic Group Unknown Author Organization [employer] Address [address] [facility] 7t [place] [address] Care Team Providers Care Tree Fruit And Nut Crops Farmer Name Role Phone Name, Eulalio EUCEDA Primary Care Provider [phone] Richard Parikh RN Unavailable [phone] Judith Rodríguez Unavailable CM Complex Status:Outreach In Progress (Enrolling) Start date:04/02/2025 Enrollment reason:ADT Feed Overview ADT-[facility] ED 03/31/25 Case Team Name Relationship Phone Richard Parikh RN(Responsible Staff) Registered N silvana [phone] Continued Care and Services Coordination
--- OUTSIDE RECORDS SUMMARY | 2025-07-14 21:11 | XMS_ITS | Encounter Summary ---
Author Organization [employer] Address [address] [facility] [address] [place] [address] Care Team Providers Care Manager News Name Role Phone Name, Eulalio EUCEDA Primary Care Provider [phone] Richard Parikh RN Unavailable [phone] Judith Rodríguez Unavailable Unavailable Judith Rodríguez Unavailable Encounter Details Date Type Department Care Team ([facility] Contact Info) Description 12/23/2022 Abstract [facility]INE [address] [place] [address] Eulalio Kunz MD [address] [place] [address] Social History Tobacco Use Types Packs/Day Years [...] Encounters Date Type Department Care Team (Late Contact Info) Description 08/09/2025 2:30 PM EST Office Visit [facility] OPT[facility]RY [address] [place], [place] [phone] Destinee Fenton, OD [address] [place] [address] 08/27/2025 2:30 PM EST Office Visit [facility] [address] [place] [address] Eulalio Kunz MD [address] [place] [address] documented as of this encounter Procedures Procedure Name Priority Date/Time Associated Diagnosis Comments COLONOSCOPY Routine 04/27/2016 11:23 AM EDT documented in this encounter Results * Colonoscopy (04/27/2016 11:23 AM EDT) Colonoscopy Normal Normal Narrative Dione Jennings - 04/27/2016 11:23 AM EDT Recommended 10 year follow up us Historical Provider HEALTH MAINTENANCE Final Result documented in this encounter Visit Diagnoses Not on filedocumented in this encounter Care Teams Manager News Relationship Specialty Start Date End Date Name, MD Eulalio [address] [place] [address] PCP - General Family Medicine 12/18/21 Richard Parikh, KINGSLEY [address] [place] [address] Registered Nurse Family Medicine 04/02/25 Judith Rodríguez 04/02/25 04/02/25 Judith Rodríguez 04/02/25 documented as of this encounter
--- OUTSIDE RECORDS SUMMARY | 2025-07-14 21:11 | XMS_ITS | Encounter Summary ---
Author Organization [employer] Address [address] [facility] 7[address] [place] [address] Care Team Providers Care Road Mechanic Name Role Phone Name, Eulalio EUCEDA Primary Care Provider [phone] Richard Parikh RN Unavailable [phone] Judith Rodríguez Unavailable Unavailable Judith Rodríguez Unavailable Reason for Visit * Reason Onset Date Comments Appointment Request 08/16/2023 Encounter Details Date Type Department Care Team ([facility] Contact Info) Description 08/16/2023 Telephone [facility] MEDICINE [address] [place], [place] [phone] Name, MD Eulalio [address] [place], [place] [phone] Appointment Request Social History Tobacco Use Types [...] @ 2:00 pm. Please contact pt @ [phone] documented in this encounter Plan of Treatment Upcoming Encounters Date Type Department Care Team (Late st Contact Info) Description 08/09/2025 2:30 PM EST Office Visit [facility] OPTOMETRY [address] [place] [address] Eliceo, Destinee, OD [address] [place] [address] 08/27/2025 2:30 PM EST Office Visit [facility] MEDICINE [address] [place] [address] Name, MD Eulalio [address] [place] [address] documented as of this encounter Visit Diagnoses Not on filedocumented in this encounter Care Teams Road Mechanic Relationship Specialty Start Date End Date Name, MD Eulalio [address] [place] [address] PCP - General Family Medicine 12/18/21 Richard Parikh, KINGSLEY [address] [place] [address] Registered Nurse Family Medicine 04/02/25 Judith Rodríguez 04/02/25 04/02/25 Judith Rodríguez 04/02/25 documented as of this encounter
[2025-07-14 23:21] VITALS: BP 143/82; PULSE 82; RESP 18; TEMP 36.9; O2SAT 97
[2025-07-15 00:03] VITALS: BP 143/82; PULSE 82; RESP 18; TEMP 36.9; O2SAT 97
== END 2025-07-15 00:04 | disposition home or self-care (01) ==
PROVIDERS: Emergency Provider Emergency Medicine; PCP Internal Medicine Geriatric Medicine
DX: S09.90XA Unspecified injury of head, initial encounter (principal); S00.83XA Contusion of other part of head, initial encounter; W00.0XXA Fall on same level due to ice and snow, initial encounter; Y93.89 Activity, other specified; Y92.018 Other place in single-family (private) house as the place of occurrence of the external cause; Y99.9 Unspecified external cause status
CPT/HCPCS: 70450; 70486; 72125; 99284

== ENCOUNTER → 2025-07-14 19:47 | Outpatient (BNV) | payer MEDICAID, SELFPAY | PROVIDERS: Emergency Provider Emergency Medicine; PCP Internal Medicine Geriatric Medicine; Visit Provider Radiology Diagnostic Radiology | DX: S09.90XA Unspecified injury of head, initial encounter (principal); Z04.3 Encounter for examination and observation following other accident | CPT/HCPCS: 70450; 70486; 72125 ==